=== PATIENT | female | born 1955 | race Caucasian/White ===

== ENCOUNTER → 2021-01-18 10:45 | Outpatient (BNVA) | payer MEDICARE, BC, SELFPAY | PROVIDERS: Visit Provider Internal Medicine | DX: Z01.810 Encounter for preprocedural cardiovascular examination (principal); I10 Essential (primary) hypertension; I42.8 Other cardiomyopathies; Z95.810 Presence of automatic (implantable) cardiac defibrillator | CPT/HCPCS: 93005; 99212 ==

== ENCOUNTER → 2022-03-14 12:58 | Outpatient (REF) | payer MEDICARE, BC, SELFPAY ==
--- NOTE | 2022-03-14 13:01 | CA_ITS ---
Transthoracic Echocardiogram Patient (Last, First, Middle): Tiana Reddy, Gender: Female Date of : 1955 Age: 66 Procedure Date: 03/14/2022 Procedure Type: Transthoracic Echocardiogram Location: OP Height: 160.02 cm Weight: 63.5 kg BSA: 1.66 m2 Heart Rate: bpm BP: 160 / 88 mmHg Surgical Nurse Practitioner: SARY Referring MD: Elliot Cruz MD Symptoms: I42.8 - Other cardiomyopathies Study Quality: Fair/contrast ECG Rhythm: Sinus Conclusions: - The left ventricular systolic function is mildly decreased. The calculated ejection fraction is 49% by biplane method. - There is mild aortic valve regurgitation. - There is mild mitral valve regurgitation. Findings Procedure Information Contrast agent, definity, is being given per protocol without apparent complications. Left Ventricle Normal left ventricular cavity size. There is normal left ventricular wall thickness. The left ventricular systolic function is mildly decreased. The calculated ejection fraction is 49% by biplane method. There is mild global hypokinesis. Diastolic function is normal for age. Right Ventricle Mildly increased right ventricular cavity size. There is normal right ventricular systolic function. There is an ICD wire seen in the right ventricle. Atria Both atria are normal in size. Aortic Valve There is a normal trileaflet aortic valve. There is mild calcification of the aortic valve. There is no aortic valve stenosis. There is mild aortic valve regurgitation. Mitral Valve There is mild mitral annular calcification. There is mild mitral valve regurgitation. There is no mitral valve stenosis. Pulmonic Valve The pulmonic valve is likely normal. Tricuspid Valve There is mild tricuspid valve regurgitation. There is no evidence of pulmonary hypertension. Great Vessels The aortic annulus, sinuses of valsalva, and asc aorta are normal in size. Venous The inferior vena cava is normal in size and collapses greater than 50% with inspiration. Pericardium/Pleural There is no evidence of pericardial effusion. Prior Study Comparison No significant change compared to prior study dated: 05/14/2019. Measurements 2D Linear Measurements IVSd: 0.80 0.6-0.9/0.6-1.0 cm LVIDd: 5.16 3.9-5.3/4.2-5.9 cm LVIDd Index: 3.11 2.4-3.2/2.2-3.1 cm/m2 LVIDs: 4.00 2.0-3.6 cm LVPWd: 0.75 0.7-1.1 cm LA Diam: 2.80 2.7-3.8/3.0-4.0 cm LAIDs Index: 1.69 1.5-2.3 cm/m2 LV Mass: 171.31 67-162/88-224 g LV Mass Index: 103.20 43-95/49-115 g/m2 LVOT Diam: 2.10 3.0+(-)1.3 cm 2D Systolic Function EF 4C: 46.20 >55% EF 2C: 53.70 >55% EF BiP: 49.30 >55% Mitral Valve MV Pk E: 0.52 MV PK A: 0.78 MV Decel Time: 187.00 E/A: 0.70 E'Lateral: 8.59 E'Medial: 7.40 E/E' Med: 7.10 E/E' Lat: 6.10 PHT: 55.00 MVA PHT: 4.00 Decel [place]: 2.80 Aortic Valve AoV Pk Augustus: 1.08 AoV Mn Augustus: 0.76 AoV VTI: 0.24 AoV Pk Grad: 5.00 Aov Mn Grad: 3.00 CHRIS Cont.VTI: 2.71 AI Pk Augustus: 4.81 AI [place]: 3.77 LVOT LVOT Pk Augustus: 0.76 LVOT Mn Augustus: 0.50 LVOT VTI: 0.19 LVOT Pk Grad: 2.00 LVOT Mn Grad: 1.00 LVOT Diam: 2.10 LVOT Area: 3.46 Diastolic Function MV Pk E: 0.52 MV Pk A: 0.78 E/A: 0.70 E'Medial: 7.40 E/E' Med: 7.10 E' Laterial: 8.59 E/E' Lat: 6.10 Right Ventricle TAPSE (mm): 2.43 TVS' Augustus: 12.10 Tricuspid Valve TR Pk Augustus: 2.77 TR Pk Grad: 31.00 RA Press: 3.00 RVSP: 34.00 Great Vessels Aorta Sinus of Valsalva: 3.42 2.0-3.[address] Ridge: 2.66 1.7-3.4 cm Ao Asc: 3.20 2.1-3.4 cm Updated in Other Vendor System with Status of Final Elliot Cruz MD electronically signed on 03/14/2022 3:41:47 PM with status of Final
== END ==
LOC: HO.CARD 12:58
PROVIDERS: Visit Provider Internal Medicine
DX: I42.8 Other cardiomyopathies (principal)
CPT/HCPCS: 93306; Q9957

== ENCOUNTER → 2022-03-27 13:58 | Outpatient (BNVA) | payer MEDICARE, BC, SELFPAY | PROVIDERS: Visit Provider Internal Medicine | DX: Z45.02 Encounter for adjustment and management of automatic implantable cardiac defibrillator (principal); I42.8 Other cardiomyopathies; I10 Essential (primary) hypertension | CPT/HCPCS: 93005; 99212 ==

== ENCOUNTER 2023-03-19 09:50 | Inpatient (IN) | payer MEDICARE, BC, SELFPAY ==
[2023-03-19] VITALS (7 sets, daily range): BP systolic 125–175; BP diastolic 79–94; PULSE 78–110; RESP 16–24; TEMP 36.5–36.9; O2SAT 91–97; BMI 23.0; BMI 19.0
--- NOTE | ~2023-03-19 | XR_ITS ---
EXAMINATION: LUMBAR SPINE AND SACRUM WITH COCCYX CLINICAL INFORMATION: Fall with pain COMPARISON: CT abdomen pelvis 02/07/2019 TECHNIQUE: 3 views of the lumbar spine, 3 views of the sacrum and coccyx. FINDINGS: There is a new compression fracture involving the L1 vertebral body compared with the prior 02/07/2019 study. Degenerative changes are again noted throughout the remainder of the lumbosacral spine. Marked vascular calcifications are seen. There is minimal grade 1 anterolisthesis of L5, slightly increased from 2019. The sacrum and coccyx are not optimally seen secondary to marked overlying bowel gas. No definite fracture or bony destructive lesion is seen. The visualized pelvis is unremarkable. XR/XR lumbar spine 2-3V IMPRESSION: 1. New compression fracture of L1. MRI could be useful to assess for edema if an acute fracture is suspected. 2. Grade 1 anterolisthesis of L5. 3. Degenerative changes throughout the lumbosacral spine.
--- NOTE | ~2023-03-19 | XR_ITS ---
EXAMINATION: XR CHEST CLINICAL INFORMATION: Weakness. COMPARISON: 01/21/2019 TECHNIQUE: 2 views of the chest were obtained. FINDINGS: Low lung volumes. Biapical pleural thickening. Diffuse subpleural reticular changes slightly progressed from the prior study. No confluent airspace disease to suggest developing pneumonia. Left chest wall single-lead pacing device is in stable position. Cardiac silhouette is unchanged. XR/XR chest 2V IMPRESSION: Stable appearance of interstitial lung disease. No acute abnormality.
--- NOTE | ~2023-03-19 | CT_ITS ---
EXAMINATION: CT CHEST WITHOUT CONTRAST CLINICAL INFORMATION: Weight loss. Smoking history. COMPARISON: Previous chest x-ray 03/19/2023 TECHNIQUE: Multidetector volumetric CT imaging of the chest was done. Axial MIP volume rendering provided. Sagittal and coronal reformatted images were obtained. This CT examination was performed using dose optimization techniques as appropriate, variously including the following: *Automated exposure control *Adjustment of mA and/or kV according to patient size (this includes techniques or standardized protocols for targeted exams where dose is matched to indication/reason for exam; i.e. extremities or head) *Use of iterative reconstruction technique DLP: 111 mGy-cm FINDINGS: LUNGS: There are increased peripheral reticular markings and parenchymal attenuation. This is seen diffusely throughout the lungs. There is mild traction bronchiolectasis seen in both lower lobes. There is mild honeycombing. There may be mild paraseptal emphysema. No endobronchial or endotracheal lesion. MEDIASTINUM: There is mediastinal lymphadenopathy. Larger lymph nodes are upper normal in size. Largest lymph node is a right precarinal lymph node measuring 9 mm in short axis. The heart is enlarged. No pericardial effusion. Left subclavian pacemaker AICD device projects over the ventricular apex. CORONARY ARTERY CALCIFICATION: Mild PLEURA: No pleural effusion. There is prominent extrapleural fat. AXILLA: No lymphadenopathy. UPPER ABDOMEN: Gallstones OSSEOUS STRUCTURES: Severe L1 vertebral body compression fracture. Degenerative changes of the spine. CT/CT chest wo IV con IMPRESSION: Severe interstitial lung disease with honeycombing. Enlarged heart. Severe L1 vertebral body compression fracture. Gallstones. Fleischner guidelines were followed.
--- NOTE | ~2023-03-19 | CT_ITS ---
EXAMINATION: CT HEAD WITHOUT CONTRAST CLINICAL INFORMATION: Weakness. COMPARISON: 01/20/2019 TECHNIQUE: Contiguous axial imaging was performed from the skull base to vertex without intravenous administration of contrast. This CT examination was performed using dose optimization techniques as appropriate, variously including the following: *Automated exposure control *Adjustment of mA and/or kV according to patient size (this includes techniques or standardized protocols for targeted exams where dose is matched to indication/reason for exam; i.e. extremities or head) *Use of iterative reconstruction technique DLP: 587 mGy-cm FINDINGS: Stable postoperative changes related to right parietotemporal craniotomy for right middle cerebral artery aneurysm clipping. There is encephalomalacia and gliosis within the right temporal lobe and inferior subinsular region. There is no intracranial hemorrhage or large evolving territorial infarction. Subcortical and periventricular matter hypoattenuation most likely represents chronic small vessel ischemic disease. The ventricles are unchanged in size. No mass effect or midline shift. Opacification of the left frontal sinus. Small air-fluid level in the right sphenoid sinus. Severe degenerative changes involving the left TMJ. CT/CT head/brain wo IV con IMPRESSION: No acute intracranial pathology. Left frontal sinus opacification. Small air-fluid level in the right sphenoid sinus.
--- NOTE | ~2023-03-19 | CT_ITS ---
EXAMINATION: CT ABDOMEN AND PELVIS WITH CONTRAST CLINICAL INFORMATION: Weight loss. Elevated CA-19-9 COMPARISON: Previous CT of the abdomen and pelvis most recent February 2019 TECHNIQUE: Multidetector volumetric images were obtained from the superior aspect of the liver through the pubic symphysis following administration 85 mL of Omnipaque 350 intravenous contrast. Sagittal and coronal reformatted images were obtained on the technologist's workstation. Oral contrast: Yes This CT examination was performed using dose optimization techniques as appropriate, variously including the following: *Automated exposure control *Adjustment of mA and/or kV according to patient size (this includes techniques or standardized protocols for targeted exams where dose is matched to indication/reason for exam; i.e. extremities or head) *Use of iterative reconstruction technique DLP: 356 mGy-cm FINDINGS: LUNG BASES: Interstitial lung disease at the lung bases. Enlarged heart. LIVER, GALLBLADDER, AND BILIARY TREE: The liver is low in attenuation suggestive of mild fatty infiltration. There is a 1 cm low-attenuation lesion in the right lobe of the liver suggestive of a cyst. No other focal liver lesion. Small gallstone. The gallbladder is otherwise normal. There is no biliary duct dilatation. Trace ascites adjacent to the liver. PANCREAS: There is a 5 mm low-attenuation lesion in the tail of the pancreas axial image 146 series 4. This may represent a cyst. Pancreas is otherwise normal. SPLEEN: Unremarkable. ADRENAL GLANDS: Unremarkable. KIDNEYS AND URETERS: The kidneys are normal in size, shape, and attenuation. No hydronephrosis, hydroureter, or calculi seen. No perinephric stranding. Small bilateral renal cysts. No imaging follow-up recommended. BLADDER: Bladder is well-distended. GASTROINTESTINAL TRACT: Severe constipation. The colon is dilated suggestive of obstipation. There is a large amount of stool in the rectosigmoid region suggestive of fecal impaction. There is wall thickening of the rectosigmoid and stranding of the surrounding fat questionable for mild stercoral colitis related to chronic obstruction. Small and large bowel is otherwise normal. The appendix is normal. The stomach is normal. ABDOMINAL WALL: No significant hernia is appreciated. LYMPH NODES: Normal. VASCULAR: Atherosclerotic disease. No aneurysm. PELVIC VISCERA: Unremarkable. OSSEOUS STRUCTURES: Severe L1 vertebral body compression fracture. This does not appear acute but is new in the interval from 2019 CT. Mild 2 mm anterior subluxation of L5 with respect to L4 and S1 that is stable probably related to facet arthritis. Degenerative changes of the spine. Degenerative changes of the hip joints. CT/CT abdomen pelvis w IV con IMPRESSION: 5 mm low-attenuation lesion in the tail the pancreas. This may represent a cyst. Follow-up MR with MRCP recommended. Mild fatty infiltration of the liver. Probable small liver cyst. Small gallstones. Severe constipation/obstipation and fecal impaction. Wall thickening of the rectosigmoid questionable for mild stercoral colitis related to chronic constipation. Severe L1 vertebral body compression fracture. This does not appear acute but is new in the interval from 2019 CT. Fleischner guidelines were followed.
--- NOTE | ~2023-03-19 | XR_ITS ---
EXAMINATION: LUMBAR SPINE AND SACRUM WITH COCCYX CLINICAL INFORMATION: Fall with pain COMPARISON: CT abdomen pelvis 02/07/2019 TECHNIQUE: 3 views of the lumbar spine, 3 views of the sacrum and coccyx. FINDINGS: There is a new compression fracture involving the L1 vertebral body compared with the prior 02/07/2019 study. Degenerative changes are again noted throughout the remainder of the lumbosacral spine. Marked vascular calcifications are seen. There is minimal grade 1 anterolisthesis of L5, slightly increased from 2019. The sacrum and coccyx are not optimally seen secondary to marked overlying bowel gas. No definite fracture or bony destructive lesion is seen. The visualized pelvis is unremarkable. XR/XR sacrum coccyx min 2V IMPRESSION: 1. New compression fracture of L1. MRI could be useful to assess for edema if an acute fracture is suspected. 2. Grade 1 anterolisthesis of L5. 3. Degenerative changes throughout the lumbosacral spine.
--- NOTE | 2023-03-19 10:04 | ECG_ITS ---
Test Reason : WEAKNESS Blood Pressure : / mmHG Vent. Rate : 082 BPM Atrial Rate : 082 BPM P-R Int : 188 ms QRS Dur : 098 ms QT Int : 384 ms P-R-T Axes : 050 -30 111 degrees QTc Int : 448 ms Normal sinus rhythm Possible Left atrial enlargement Left axis deviation Minimal voltage criteria for LVH, may be normal variant ( Enoch product ) Nonspecific ST and T wave abnormality Abnormal ECG When compared with ECG of 07-FEB-2019 16:24, Premature ventricular complexes are no longer Present Vent. rate has decreased BY 40 BPM Criteria for Inferior infarct are no longer Present T wave inversion no longer evident in Anterolateral leads Referred By: Maximino Acevedo Electronically Signed By:YOLIE BOWERS
--- NOTE | 2023-03-19 10:05 | ED_ITS ---
HPI - Weakness General Chief complaint: Weakness Stated complaint: GEN WEAKNESS,FALL T-1 PER EMS Time Seen by Provider: 03/19/23 09:59 Source: patient and EMS Mode of arrival: EMS Limitations: no limitations History of Present Illness HPI Narrative: 59-year-old female history of ICD weakness seemed cardiopathy hypertension presents to the emergency department with weakness. Patient states the past several months her leg swelling gradually weaker. She states that yesterday she tried to get up and fell onto her buttocks. She woke up this morning was still unable to get out of bed. Patient denies any head injury she has headache she denies chest pain does have some shortness of breath she denies any abdominal pain but feels like she might have UTI she did have a fall yesterday did not lose consciousness does not have any pain to any complaint is her leg weakness she lives at home with her son she does not ambulate with a walker. MD Complaint: generalized weakness Related Data Home Medications Medication Instructions Recorded Confirmed folic acid 1 mg tablet 1 mg PO DAILY 01/18/21 03/27/22 Previous Rx's Medication Instructions Recorded furosemide 20 mg tablet 20 mg PO DAILY #90 tabs 03/27/22 isosorbide mononitrate 30 mg 30 mg PO DAILY #90 tabs 04/28/22 tablet,extended release 24 hr carvedilol 25 mg tablet 25 mg PO BID #90 tabs 09/14/22 hydralazine 25 mg tablet 25 mg PO TID #270 tabs 01/24/23 Allergies Allergy/AdvReac Type Severity Reaction Status Date / Time SAUL Inhibitors Allergy Severe ANAPHYLAXIS Verified 03/19/23 10:07 [SAUL INHIBITORS] amoxicillin [AMOXICILLIN] Allergy Unknown DIARRHEA Verified 03/19/23 10:07 hydrochlorothiazide Allergy Unknown UNKNOWN Verified 03/19/23 10:07 [HYDROCHLOROTHIAZIDE] Penicillins [PENICILLINS] Allergy Unknown UNKNOWN Verified 03/19/23 10:07 lisinopril Allergy Difficulty Verified 03/19/23 10:08 Swallowing Review of Systems 2 Review of Systems: Review of systems: General: Patient denies any fever chills recent illness or falls Musculoskeletal: Denies back pain or body aches or other injuries HEENT: denies headache, runny nose, ear pain Respiratory: denies shortness of breath, cough Cardiovascular: no chest pain or palpitations : denies dysuria, frequency Abdomen: no nausea vomiting denies abdominal pain Extremities: no swelling, no pain Skin: no diaphoresis Yes all other systems are reviewed and are negative PMFSH Past Medical History Medical History (Updated 03/19/23 @ 14:24 by Maximino Acevedo DO) ICD (implantable cardioverter-defibrillator) in place Gout Cerebral aneurysm Essential hypertension NICM (nonischemic cardiomyopathy) Surgical History (Updated 01/18/21 @ 11:11 by LAURA Barry) History of implantable cardioverter-defibrillator (ICD) placement (~10/12/14) History of cardiac catheterization (~2013) Family History Family History (Updated 01/18/21 @ 11:13 by LAURA Barry) Father CAD (coronary artery disease) HTN (hypertension) Cardiomyopathy Mother Suicide Social History Social History (Updated 01/18/21 @ 11:00 by LAURA Barry) Alcohol intake: current Alcohol intake frequency: holidays/special occasions only Patient Tobacco Use Status: Never used Tobacco Smoked in Last 30 Days: No Use of substances other than those prescribed or required for medical reasons: No Advance Directives: Yes Advance Directives on File: Yes Advance Directives Date on File: 03/19/23 Physical Exam 2 Vital Signs: Vital Signs: Last Vital Signs Temp 98.5 F 03/19/23 11:51 Pulse 78 03/19/23 11:51 Resp 18 03/19/23 11:51 BP 168/83 H 03/19/23 11:51 Pulse Ox 95 03/19/23 11:51 O2 Del Method Room Air 03/19/23 11:51 BMI result Body Mass Index 23.0 Neurological exam: CN II- XII tested. Patient is alert and oriented to person place and time. Patient has no dysphagia or dysarthia, denies good vision in all four vision gage no nystagmus on exam, good strength to upper and lower extremities with normal reflexes to brachioradialis, wrist, patella and achilles.? Negative romberg, good finger to nose and heel to fonseca.?? General: Well-appearing well-nourished in no signs of distress HEENT: Normocephalic atraumatic Neck: No signs of JVD, no masses no tenderness or lymphadenopathy Cardiovascular: Regular rate and rhythm Respiratory: Clear to auscultation bilaterally Abdomen: Soft nontender no masses Extremities: Normal pedal pulses no signs of edema Skin: Dry warm no rashes Back: No tenderness full ROM Course Course Course Narrative: Labs show hyponatremia which is new patient admits to drink lots of water. Did send a serum osmolarity as well as urine and urine sodium. 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 I spoke to the family they are requesting morphine stating that she has had no relief with ibuprofen and Tylenol for her bed sores. I tried to explain that the safety profile morphine is the 1 that we would start the medication she has not taken anything for pain I will start with some Toradol and Tylenol at this time. found to have a UTi rocephin orderd I will continue with admission. Medications Administered Discontinued Medications Generic Name Dose Route Start Last Admin Trade Name Ana Paula PRN Reason Stop Dose Admin Acetaminophen 650 mg 03/19/23 13:32 03/19/23 14:03 Acetaminophen 325 Mg Tablet PO 03/19/23 13:33 650 mg ONCE ONE Administration Sodium Chloride 1,000 mls @ 999 mls/hr 03/19/23 10:15 03/19/23 10:57 Ns IV 03/19/23 11:15 999 mls/hr .Q1H1M MARTITA Administration Ketorolac Tromethamine 15 mg 03/19/23 13:32 03/19/23 14:02 Ketorolac Tromethamine 15 Mg/Ml Vial IVPUSH 03/19/23 13:33 15 mg ONCE ONE Administration Medical Decision Making Medical Decision Making [facility] Narrative: Patient is here for weakness but she has no signs of stroke she has no identifiable wheezing CN exam normal reflexes this could be related to having to check labs have the patient evaluate by her outsole caser as well as physical therapy. Differential Diagnosis Differential Diagnoses: The differential diagnosis associated with the presentation includes Less likely a stroke but this is likely related to having a UTI she has weakness sepsis dehydration electrolyte abnormality failure to thrive Lab Data [facility] Lab Attestation statement: I reviewed the patient's lab results. 03/19/23 10:38 03/19/23 10:38 Labs: Lab Results 03/19/23 03/19/23 03/19/23 Range/Units 10:38 11:49 13:53 WBC 4.6 L (4.8-10.8) X10*3/uL RBC 3.76 L (4.20-5.50) X10*6/uL Hgb 11.5 L (12.0-16.0) g/dl Hct 33.5 L (37.0-47.0) % MCV 89.1 (80.0-98.0) fL MCH 30.6 (27.0-33.0) pg MCHC 34.3 (31.0-35.0) g/dl RDW 14.6 (11.0-16.0) % Plt Count 169 (160-400) X10*3/uL MPV 9.6 (9.4-12.3) fL Immature Gran % (Auto) 0.2 (0.0-0.4) % Neut % (Auto) 74.2 H (45-73) % Lymph % (Auto) 9.7 L (20-40) % Nolan % (Auto) 13.8 H (2-11) % Eos % (Auto) 1.7 (0-4) % Baso % (Auto) 0.4 (0-2) % Lymph # (Auto) 0.5 L (1.2-4.9) X10*3/uL Nolan # (Auto) 0.6 (0.1-1.2) X10*3/uL Eos # (Auto) 0.1 (0.0-0.4) X10*3/uL Baso # (Auto) 0.0 (0.0-0.2) X10*3/uL Abs Immat Gran (auto) 0.01 (0.00-0.03) X10*3/uL Absolute Neuts (auto) 3.4 (2.0-8.3) x10*3/uL Absolute Nucleated RBC 0.000 (0.0-0.012) X10*3/uL Nucleated RBC % (auto) 0.0 (0.0-0.2) /100WBC Sodium 124 L (135-145) mmol/L Potassium 3.3 (3.3-5.1) mmol/L Chloride 95 L (96-108) mmol/L Carbon Dioxide 21 L (22-29) mmol/L Anion Gap 11 L (12-20) BUN 12 (9-16) mg/dL Creatinine 0.68 (0.5-1.4) mg/dL Estim Creat Clear Calc 65.5 Estimated GFR > 60 Random Glucose 99 (60-115) mg/dL Osmolality 257 L (281-305) mosm/kg Lactic Acid 1.5 (0.5-2.0) mmol/L Calcium 8.7 (8.4-10.2) mg/dL Total Bilirubin 0.3 (0.0-1.0) mg/dL Direct Bilirubin 0.1 (0.0-0.5) mg/dL AST 17 (5-31) U/L ALT 8 (0-31) U/L Alkaline Phosphatase 81 (39-117) U/L Total Protein 6.0 L (6.5-8.0) g/dL Albumin 3.2 L (3.5-5.0) g/dL Lipase 18 (8-78) U/L Urine Color Dark Yellow Urine Appearance Turbid Urine pH 5.5 (5.0-9.0) Ur Specific Rugby 1.010 (1.005-1.025) Urine Protein Trace (Neg-Trace) mg/dL Urine Glucose (UA) Negative (Negative) mg/dL Urine Ketones Negative (Negative) mg/dL Urine Blood Moderate (2+) H (Negative) Urine Nitrite Positive H (Negative) Ur Leukocyte Esterase Large (3+) H (Negative) Urine RBC 11-20 H (0-2) /HPF Urine WBC >50 H (0-5) /HPF Ur Squamous Epith Cells 3-5 (0-2) /HPF Urine Bacteria 4+ (None Seen) Hyaline Casts 0-2 (0-2) /LPF Ur Random Sodium < 20.0 mmol/L COVID-19 (MIKEY) Negative (Negative) COVID-19 Clin Com See Note Hyponatremia I will add on urine and serum osmolarity and urine sodium. Independent Interpretation I performed an independent interpretation of an: EKG and Plain X-Ray Interpretation: Rate 82 normal sinus rhythm normal intervals no signs of ischemia no previous for comparison there is a lot artifact interpreted by me External Record Review External record reviewed: Office record Last seen by Cardiology about a year ago Discharge Plan Discharge Clinical Impression: Acute hyponatremia, Weakness, Acute dehydration, Psychogenic polydipsia, Urinary tract infection Patient Disposition: Admitted As Inpatient Prescriptions: No Action isosorbide mononitrate 30 mg tablet extended release 24 hr 30 mg PO DAILY Qty: 90 3RF carvedilol 25 mg tablet 25 mg PO BID Qty: 90 3RF hydralazine 25 mg tablet 25 mg PO TID Qty: 270 3RF folic acid 1 mg tablet 1 mg PO DAILY furosemide 20 mg tablet 20 mg PO DAILY Qty: 90 3RF
--- NOTE | 2023-03-19 10:20 | PC.NURSE ---
pt a&ox3, vss, nsr on the school bus monitor. pt biba d/t increased generalized weakness over the past few weeks. pt also verbalizes poor PO intake and SOB. pt able to speak in full, clear sentences w/o difficulty. pt had a fall yesterday after standing - her legs gave out and she fell on her coccyx. pt denies headstrike, LOC, and per ems, she is not on blood thinners. tech performing ekg. pt resting comfortably in no apparent distress.
[2023-03-19 10:48] LABS: MANUAL DIFF FLAG NO
[2023-03-19] MEDS: 0.9 % Sodium Chloride 1,000 ML 999 ML IV (10:57)
[2023-03-19 10:58] LABS: Basophils Percent Auto 0.4 % (0-2); Eosinophils Absolute Auto 0.1 X10*3/uL (0.0-0.4); Eosinophils Percent Auto 1.7 % (0-4); Hematocrit 33.5 % (37.0-47.0); Hemoglobin 11.5 g/dl (12.0-16.0); Imm Gran Abs Auto 0.01 X10*3/uL (0.00-0.03); Imm Gran Pct Auto 0.2 % (0.0-0.4); Lymphocytes Absolute Auto 0.5 X10*3/uL (1.2-4.9); Lymphocytes Percent Auto 9.7 % (20-40); Mean Corpuscular HGB Conc 34.3 g/dl (31.0-35.0); Mean Corpuscular Hemoglobin 30.6 pg (27.0-33.0); Mean Corpuscular Volume 89.1 fL (80.0-98.0); Mean Platelet Volume 9.6 fL (9.4-12.3); Monocytes Absolute Auto 0.6 X10*3/uL (0.1-1.2); Monocytes Percent Auto 13.8 % (2-11); Neutrophils Absolute Auto 3.4 x10*3/uL (2.0-8.3); Neutrophils Percent Auto 74.2 % (45-73); Platelet Count 169 X10*3/uL (160-400); Red Blood Count 3.76 X10*6/uL (4.20-5.50); Red Cell Distribution Width 14.6 % (11.0-16.0); White Blood Count 4.6 X10*3/uL (4.8-10.8)
[2023-03-19 11:00] LABS: Lactic Acid 1.5 mmol/L (0.5-2.0)
[2023-03-19 11:04] LABS: Alanine Aminotransferase 8 U/L (0-31); Albumin Level 3.2 g/dL (3.5-5.0); Alkaline Phosphatase 81 U/L (39-117); Anion Gap 11 (12-20); Aspartate Amino Transferase 17 U/L (5-31); Bilirubin Direct 0.1 mg/dL (0.0-0.5); Bilirubin Total 0.3 mg/dL (0.0-1.0); Blood Urea Nitrogen 12 mg/dL (9-16); Calcium 8.7 mg/dL (8.4-10.2); Carbon Dioxide 21 mmol/L (22-29); Chloride 95 mmol/L (96-108); Creatinine Clr Calc Pharmacy 65.5; Estimated Glomerular Filt Rate > 60; Glucose Random 99 mg/dL (60-115); Lipase 18 U/L (8-78); Potassium 3.3 mmol/L (3.3-5.1); Sodium 124 mmol/L (135-145)
--- NOTE | 2023-03-19 11:06 | PC.NURSE ---
vss and up to date. nsr on the bus monitor. pt c/o SOB - crackles noted in lower bases upon auscultation. pt also c/o pain on coccyx - redness noted upon visualization. barrier cream applied to affected area. pt currently being transported to [place].
[2023-03-19 11:14] LABS: COVID-19 Test Negative (Negative); IDNOW Serial# 08D9AD1C
[2023-03-19 12:12] LABS: Osmolality, Serum 257 mosm/kg (281-305)
[2023-03-19] MEDS: Ketorolac Tromethamine 15 MG/ML VIAL IVPUSH (14:02)
[2023-03-19] MEDS: Acetaminophen 325 MG TABLET 650 MG PO (14:03)
[2023-03-19 14:04] LABS: Appearance Urine Turbid; Color Urine Dark Yellow; Glucose Urine UA Negative (Negative); Leukocyte Esterase Urine Large (3+) (Negative); Nitrite Urine Positive (Negative); PH 5.5 (5.0-9.0); UMIC TRIGGER UACC YES; Urine Blood Moderate (2+) (Negative); Urine Ketones Negative (Negative); Urine Protein Trace mg/dL (Neg-Trace)
[2023-03-19 14:07] LABS: Bacteria Urine 4+ (None Seen); Hyaline Casts Urine 0-2 /LPF (0-2); UACC Culture Trigger YES; WBC Urine >50 /HPF (0-5)
[2023-03-19 14:09] LABS: Sodium Urine Random < 20.0 mmol/L
[2023-03-19 14:29] LABS: Osmolality Urine 192 mosm/kg (373-1093)
[2023-03-19] MEDS: cefTRIAXone sodium 1 GM in 0.9 % Sodium Chloride 50 ML IV (14:42)
--- NOTE | 2023-03-19 15:02 | PHA.MEDREC ---
Pharmacy Consult ? Medication Reconciliation Pharmacy has completed the medication reconciliation. Family had rx bottles. Patient also reported she takes folic acid and confirmed that lasix was stopped. [place], PharmD
[2023-03-19] MEDS: Enoxaparin Sodium 40 MG/0.4 ML SYRINGE SUBCUT (17:14)
--- NOTE | 2023-03-19 17:20 | P.HPHOSP_ITS ---
<Statement entered by Sherita Sanders MD - 03/24/23 14:44> The patient was seen and evaluated with CITLALLI Landrum. I agree with her note, assessment and plan with the following. 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 IV ceftriaxone 1 g , follow cultures Rest of evaluations by PA note. History of Present Illness Date of Service: 03/19/23 Attending physician on admission: Sherita Sanders Chief Complaint: weakness, urinary symptoms, weight loss 67-year-old female with history of nonischemic cardiomyopathy s/p ICD placement, history of cerebral aneurysm s/p clipping coiling, gout, hypertension, former smoker with 40 pack year history, and Crohn's disease presented to the hospital earlier today with her son with whom she lives for evaluation of generalized weakness ongoing for about 1 month. She states the weakness has been progressive and she has been unable to get out of bed without significant difficulty and requires furniture surfing while ambulating which is not her baseline. Yesterday she did have a fall onto her buttock and denies any head strike or loss of consciousness. Since then has had 10/10 pain in the sacrum/coccyx region. She tells me that over the last week, she has also developed urge incontinence, dysuria, and suprapubic pressure. She tells me that because she has been unable to get out of bed much, has developed pressure ulcer on the sacrum. She also tells me that since the beginning of the year, has had a 30 lb unintentional weight loss. She states she has little appetite but has been drinking a lot of fluids. Drinks about 8, 16 oz bottles of water on a daily basis. She denies any fevers, chills, sore throat, headache, abdominal pain, nausea, vomiting, cough, shortness of breath, chest pain, lightheadedness. She does report occasional diarrhea related to her Crohn's disease but this is rare. Denies any bright red blood per rectum or melena. Patient is alert and oriented x4 but does appear somewhat confused when telling story or giving history with small details. Her son reports this is not her baseline. He does report that she has been endorsing depression anxiety. Upon questioning further on this, the patient does report anxiety about her health and has been depressed since COVID stating she is typically a happy person. She has not been following with any primary care provider. She reports she is up to date with routine cancer screenings. In the ED, vital stable. No leukocytosis. Mild normocytic anemia with H/H 11.5/33.5%. Renal function normal. Sodium 124, Cl 95, lytes otherwise normal. Serum osm 257, urine osm 192. UA with 3+ luekocytes, positive nitrites, 2+ blooid, positive urinary sediment, 4+ bacteria. Negative for COVID-19. Head CT negative for acute intracranial abnormality, but does show left frontal sinus opacification and small air-fluid level in the right sphenoid sinus. CXR negative for any acute cardiopulmonary abnormality but does show interstitial lung disease. Review of Systems 2 Review of Systems: General: No fevers. +general weakness, malaise, unintentional weight loss HEENT: No blurred vision, diplopia. No sore throat, nasal congestion, rhinorrhea, sinus pain, ear pain Cardiovascular: No chest pain, palpitations, or leg edema Respiratory: No shortness of breath, wheezing, cough GI: No abdominal pain, nausea, vomiting, diarrhea, constipation, melena, hematochezia : +dysuria, +urgency, +incontinence. No hematuria, increased urinary frequency, decreased urinary output MSK: No myalgia. +back pain Neuro: No headaches, focal weakness, paresthesias Skin: No rashes or lesions [facility] Medical History ICD (implantable cardioverter-defibrillator) in place Gout Cerebral aneurysm Essential hypertension NICM (nonischemic cardiomyopathy) Family History Father CAD (coronary artery disease) HTN (hypertension) Cardiomyopathy Mother Suicide Surgical History History of implantable cardioverter-defibrillator (ICD) placement (~10/12/14) History of cardiac catheterization (~2013) Social History Alcohol intake: current Alcohol intake frequency: holidays/special occasions only Patient Tobacco Use Status: Never used Tobacco Smoked in Last 30 Days: No Use of substances other than those prescribed or required for medical reasons: No Advance Directives: Yes Advance Directives on File: Yes Advance Directives Date on File: 03/19/23 Nutrition Risks: No Nutritional Risk Meds Allergies Allergy/AdvReac Type Severity Reaction Status Date / Time SAUL Inhibitors Allergy Severe ANAPHYLAXIS Verified 03/19/23 10:07 [SAUL INHIBITORS] amoxicillin [AMOXICILLIN] Allergy Unknown DIARRHEA Verified 03/19/23 10:07 hydrochlorothiazide Allergy Unknown UNKNOWN Verified 03/19/23 10:07 [HYDROCHLOROTHIAZIDE] Penicillins [PENICILLINS] Allergy Unknown UNKNOWN Verified 03/19/23 10:07 lisinopril Allergy Difficulty Verified 03/19/23 10:08 Swallowing Active Medications: Current Medications Acetaminophen (Acetaminophen 325 Mg Tablet) 650 mg PO Q6H PRN PRN Reason: Pain, Mild (Pain Scale 1-3) Carvedilol (Carvedilol 25 Mg Tablet) 25 mg PO BID [facility]; Protocol Docusate Sodium (Docusate Sodium 100 Mg Capsule) 100 mg PO DAILY PRN PRN Reason: Constipation Enoxaparin Sodium (Enoxaparin Sodium 40 Mg/0.4 Ml Syringe) 40 mg SUBCUT Q24H [facility] Last Admin: 03/19/23 17:14 Dose: 40 mg Folic Acid (Folic Acid 1 Mg Tablet) 1 mg PO DAILY [facility] Hydralazine HCl (Hydralazine Hcl 25 Mg Tablet) 25 mg PO TID [facility]; Protocol Isosorbide Mononitrate (Isosorbide Mononitrate 30 Mg Tab.Er.24h) 30 mg PO DAILY [facility]; Protocol Ondansetron HCl (Ondansetron Hcl 4 Mg/2 Ml Vial) 4 mg IVPUSH Q8H PRN PRN Reason: Nausea and Vomiting Sodium Chloride (0.9 % Sodium Chloride Flush 3 Ml Syringe) 3 ml IVFLUSH QSHIFT [facility] Home Medications Medication Instructions Recorded Confirmed Last Taken Type folic acid 1 mg tablet 1 mg PO DAILY 01/18/21 03/19/23 03/18/23 History Physical Exam 2 Vital Signs and Narrative: Vital Signs: Last Vital Signs Temp 98.5 F 03/19/23 11:51 Pulse 80 03/19/23 17:12 Resp 24 H 03/19/23 17:12 BP 165/84 H 03/19/23 17:12 Pulse Ox 96 03/19/23 17:12 O2 Del Method Room Air 03/19/23 17:12 BMI result Body Mass Index 23.0 Constitutional - Awake and Alert, No apparent distress Eyes - PERRLA, EOMI Cardiovascular - S1S2, RRR, No edema Respiratory - Normal lung expansion, Normal respiratory effort, No respiratory distress, CTA bilaterally Gastrointestinal - NT / ND; +BS; No rebound or guarding Extremities - no calf tenderness bilaterally, no swelling Skin - Warm/Dry. Stage 1 decubitus ulcer bilateral buttock. Stage 2 decubitus ulcer of sacrum without drainage or surrounding erythema Neurological - Alert & oriented x3 but somewhat confused at times with story telling or giving history, CN II-XII in tact, 5/5 strength BUE and BLE Psychological - Appropriate affect Results Labs 03/19/23 10:38 03/19/23 Unknown Labs: Laboratory Results - last 24 hr 03/19/23 03/19/23 03/19/23 10:38 11:49 13:53 MCV 89.1 MCH 30.6 MCHC 34.3 RDW 14.6 Plt Count 169 MPV 9.6 Immature Gran % (Auto) 0.2 Neut % (Auto) 74.2 H Lymph % (Auto) 9.7 L [place] % (Auto) 13.8 H Eos % (Auto) 1.7 Baso % (Auto) 0.4 Lymph # (Auto) 0.5 L [place] # (Auto) 0.6 Eos # (Auto) 0.1 Baso # (Auto) 0.0 Abs Immat Gran (auto) 0.01 Absolute Neuts (auto) 3.4 Absolute Nucleated RBC 0.000 Nucleated RBC % (auto) 0.0 Anion Gap 11 L Estim Creat Clear Calc 65.5 Estimated GFR > 60 Random Glucose 99 Osmolality 257 L Lactic Acid 1.5 Calcium 8.7 Total Bilirubin 0.3 Direct Bilirubin 0.1 AST 17 ALT 8 Alkaline Phosphatase 81 Total Protein 6.0 L Albumin 3.2 L Lipase 18 Urine Color Dark Yellow Urine Appearance Turbid Urine pH 5.5 Ur Specific [place] 1.010 Urine Protein Trace Urine Glucose (UA) Negative Urine Ketones Negative Urine Blood Moderate (2+) H Urine Nitrite Positive H Ur Leukocyte Esterase Large (3+) H Urine RBC 11-20 H Urine WBC >50 H Ur Squamous Epith Cells 3-5 Urine Bacteria 4+ Hyaline Casts 0-2 Urine Osmolality 192 L Ur Random Sodium < 20.0 COVID-19 (MIKEY) Negative COVID-19 Clin Com See Note Imaging Radiologist's Impressions: Impressions Head CT 03/19/23 11:21 IMPRESSION: No acute intracranial pathology. Left frontal sinus opacification. Small air-fluid level in the right sphenoid sinus. Chest X-Ray 03/19/23 11:22 IMPRESSION: Stable appearance of interstitial lung disease. No acute abnormality. Assessment and Plan (1) Urinary tract infection: Status: Acute (2) Psychogenic polydipsia: Status: Acute (3) Acute hyponatremia: Status: Acute (4) Unintentional weight loss: Status: Acute Plan 67-year-old female with history of nonischemic cardiomyopathy s/p ICD placement, history of cerebral aneurysm s/p clipping coiling, gout, hypertension, former smoker with 40 pack year history, and Crohn's disease admitted for management of acute metabolic encephalopathy with UTI and hyponatremia. #Acute metabolic encephalopathy -likely r/t infection vs hyponatremia -Per her son, no cognitive impairment at baseline -Plan as below. -Monitor mentation #Acute hyponatremia -r/t psychogenic polydipsia- drinking 8, 16 oz bottles water daily -Ur osm 197, serum osm 257, Urine Na <20 -Given 1 L IV NS in ED -Fluid restrict to 1.2 L daily -check sodium q4h with goal of Na increase no more than 8mmol/l in 24 hr -nephrology consult #Acute UTI -UA with 3+ leukocytes, 2+ blood, positive nitrites, positive urinary sediment, 4+ bacteria -IV ceftriaxone 1 g (initiated 03/19) -follow CBC, cultures. No sepsis #Acute L1 compression fracture -fell onto buttock yesterday -MRI lumbar spine ordered -Initiate gabapentin 100mg TID, increase as tolerated -Morphine prn for severe pain -PT eval # generalized weakness w/ fall -etiology unclear, possibly related to infection -head CT negative for acute intracranial abnormality -PT eval # unintentional 30 lb weight loss -over 9 months -Has anorexia as well as polydipsia -Does endorse depression/anxiety which could be contributory, psychiatry consult placed -Last endoscopy/colonoscopy 2018 without significnat abnormality -Reports UTD with mammograms -Former smoker with 40 pack year history, quit 15 years ago. CXR negative except for interstitial lung disease -Hematology studies reassuring, renal function normal, A1c 4.5%, hepatic function normal, TSH normal. 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 Quality Stroke Does the patient have a stroke diagnosis?: No VTE Prior VTE?: No VTE Risk Level:: Medical - moderate - high VTE Device Contraindication: Treatment Not Indicated VTE Drug Contraindication: N/A - Med Ordered
[2023-03-19 17:31] LABS: Estimated Average Glucose 82 mg/dL; Hemoglobin A1c % 4.5 % (<6.0)
[2023-03-19 17:51] LABS: TSH reflex Free T4 2.34 uIU/mL (0.32-4.0)
--- NOTE | 2023-03-19 18:18 | PC.NURSE ---
nurse to nurse report given to floor RN
[2023-03-19 19:28] LABS: Lactate Dehydrogenase 183 U/L (122-220); Sodium 129 mmol/L (135-145)
[2023-03-19 19:43] LABS: HCG Quantitative 25 mIU/mL
[2023-03-19] MEDS: Morphine Sulfate 2 MG/ML CARTRIDGE IVPUSH (19:54)
[2023-03-19] MEDS: Gabapentin 100 MG CAPSULE PO (21:02)
[2023-03-19] MEDS: 0.9 % Sodium Chloride Flush 3 ML SYRINGE IVFLUSH (21:02)
[2023-03-19] MEDS: hydrALAZINE HCl 25 MG TABLET PO (21:02)
[2023-03-19] MEDS: carvediloL 25 MG TABLET PO (21:06)
--- NOTE | 2023-03-19 21:19 | PM.EVENT ---
Event Note Date of Service: 03/19/23 Event Note: Unfortunately, pt's son was unable to locate the ICD card to determine if the ICD is compatible with MRI. However he did send photo of the communicator. See below Time Spent With Patient Time: Total time managing care of this patient today ____ minutes.
[2023-03-19 21:51] LABS: Sodium 128 mmol/L (135-145)
--- NOTE | 2023-03-19 22:51 | PC.NURSE ---
pt had a coccyx pressure ulcer 1x1, and stephanie. leg bruise with right leg scratch skin tear.
[2023-03-20 02:22] LABS: Sodium 130 mmol/L (135-145)
[2023-03-20 03:18] VITALS: BP 147/72; PULSE 71; RESP 17; TEMP 36.4; O2SAT 94
[2023-03-20 04:14] LABS: ~HepC Num1 0.09 S/CO (0.00-0.79); ~Hepatitis C Antibody Nonreactive (Nonreactive)
[2023-03-20] MEDS: Morphine Sulfate 2 MG/ML CARTRIDGE IVPUSH ×4 (06:36→21:05)
[2023-03-20 06:56] LABS: Alanine Aminotransferase 7 U/L (0-31); Albumin Level 2.9 g/dL (3.5-5.0); Alkaline Phosphatase 70 U/L (39-117); Anion Gap 11 (12-20); Aspartate Amino Transferase 16 U/L (5-31); Bilirubin Total 0.2 mg/dL (0.0-1.0); Blood Urea Nitrogen 9 mg/dL (9-16); Calcium 8.2 mg/dL (8.4-10.2); Carbon Dioxide 20 mmol/L (22-29); Chloride 102 mmol/L (96-108); Creatinine Clr Calc Pharmacy 66.7; Estimated Glomerular Filt Rate > 60; Glucose Random 83 mg/dL (60-115); Potassium 3.3 mmol/L (3.3-5.1); Sodium 130 mmol/L (135-145); Total Protein 5.7 g/dL (6.5-8.0)
[2023-03-20 07:21] VITALS: PULSE 72; RESP 12; TEMP 36.2; O2SAT 95
[2023-03-20] MEDS: 0.9 % Sodium Chloride Flush 3 ML SYRINGE IVFLUSH ×3 (08:46→21:11)
[2023-03-20] MEDS: hydrALAZINE HCl 25 MG TABLET PO ×3 (08:47→21:05)
[2023-03-20] MEDS: Isosorbide Mononitrate 30 MG TAB.ER.24H PO (08:47)
[2023-03-20] MEDS: Gabapentin 100 MG CAPSULE PO ×3 (08:47→21:04)
[2023-03-20] MEDS: carvediloL 25 MG TABLET PO ×2 (08:47→21:04)
[2023-03-20] MEDS: Folic Acid 1 MG TABLET PO (08:48)
[2023-03-20 10:12] LABS: Sodium 133 mmol/L (135-145)
--- NOTE | 2023-03-20 10:35 | HO.PM.IMPN ---
Subjective Subjective Date of Service: 03/20/23 Interval History: back pain Physical Exam Vital Signs: Vital Signs: Last Vital Signs Temp 97.1 F 03/20/23 07:21 Pulse 72 03/20/23 07:21 Resp 12 03/20/23 07:21 BP 147/72 H 03/20/23 03:18 Pulse Ox 95 03/20/23 07:21 O2 Del Method Room Air 03/20/23 07:21 BMI result Body Mass Index 19.0 General: AO X 3, no acute distress Resp: CTA bilateral, no accessory muscles used CVS: S1,S2,RRR GI: soft, non tender, non distended Neuro: motor grossly intact, alert Psych: appropriate affect, appropriate insight Objective Data Active Medications Acetaminophen (Acetaminophen 325 Mg Tablet) 650 mg PO Q6H PRN PRN Reason: Pain, Mild (Pain Scale 1-3) Carvedilol (Carvedilol 25 Mg Tablet) 25 mg PO BID [facility]; Protocol Last Admin: 03/20/23 08:47 Dose: 25 mg Documented By: MICKEY Docusate Sodium (Docusate Sodium 100 Mg Capsule) 100 mg PO DAILY PRN PRN Reason: Constipation Enoxaparin Sodium (Enoxaparin Sodium 40 Mg/0.4 Ml Syringe) 40 mg SUBCUT Q24H [facility] Last Admin: 03/19/23 17:14 Dose: 40 mg Documented By: KIRAN Folic Acid (Folic Acid 1 Mg Tablet) 1 mg PO DAILY [facility] Last Admin: 03/20/23 08:48 Dose: 1 mg Documented By: MICKEY Gabapentin (Gabapentin 100 Mg Capsule) 100 mg PO TID [facility] Last Admin: 03/20/23 08:47 Dose: 100 mg Documented By: MICKEY Hydralazine HCl (Hydralazine Hcl 25 Mg Tablet) 25 mg PO TID [facility]; Protocol Last Admin: 03/20/23 08:47 Dose: 25 mg Documented By: MICKEY Ceftriaxone Sodium 1 gm/ (Sodium Chloride) 50 mls @ 100 mls/hr IV Q24H [facility] Isosorbide Mononitrate (Isosorbide Mononitrate 30 Mg Tab.Er.24h) 30 mg PO DAILY [facility]; Protocol Last Admin: 03/20/23 08:47 Dose: 30 mg Documented By: MICKEY Morphine Sulfate (Morphine Sulfate 2 Mg/Ml Cartridge) 2 mg IVPUSH Q4H PRN; Protocol PRN Reason: Pain, Severe (Pain Scale 7-10) Last Admin: 03/20/23 06:36 Dose: 2 mg Documented By: KATHLEEN Ondansetron HCl (Ondansetron Hcl 4 Mg/2 Ml Vial) 4 mg IVPUSH Q8H PRN PRN Reason: Nausea and Vomiting Sodium Chloride (0.9 % Sodium Chloride Flush 3 Ml Syringe) 3 ml IVFLUSH QSHIFT [facility] Last Admin: 03/20/23 08:46 Dose: 3 ml Documented By: MICKEY Labs 03/19/23 10:38 03/20/23 09:56 Labs: Laboratory Results - last 24 hr 03/19/23 03/19/23 03/19/23 10:38 11:49 13:53 MCV 89.1 MCH 30.6 MCHC 34.3 RDW 14.6 Plt Count 169 MPV 9.6 Immature Gran % (Auto) 0.2 Neut % (Auto) 74.2 H Lymph % (Auto) 9.7 L [place] % (Auto) 13.8 H Eos % (Auto) 1.7 Baso % (Auto) 0.4 Lymph # (Auto) 0.5 L [place] # (Auto) 0.6 Eos # (Auto) 0.1 Baso # (Auto) 0.0 Abs Immat Gran (auto) 0.01 Absolute Neuts (auto) 3.4 Absolute Nucleated RBC 0.000 Nucleated RBC % (auto) 0.0 Anion Gap 11 L Estim Creat Clear Calc 65.5 Estimated GFR > 60 Random Glucose 99 Estimat Average Glucose 82 Hemoglobin A1c % 4.5 Osmolality 257 L Lactic Acid 1.5 Calcium 8.7 Total Bilirubin 0.3 Direct Bilirubin 0.1 AST 17 ALT 8 Alkaline Phosphatase 81 Lactate Dehydrogenase Total Protein 6.0 L Albumin 3.2 L Lipase 18 Carcinoembryonic Ag TSH 2.34 Beta HCG, Quant Urine Color Dark Yellow Urine Appearance Turbid Urine pH 5.5 Ur Specific [place] 1.010 Urine Protein Trace Urine Glucose (UA) Negative Urine Ketones Negative Urine Blood Moderate (2+) H Urine Nitrite Positive H Ur Leukocyte Esterase Large (3+) H Urine RBC 11-20 H Urine WBC >50 H Ur Squamous Epith Cells 3-5 Urine Bacteria 4+ Hyaline Casts 0-2 Urine Osmolality 192 L Ur Random Sodium < 20.0 COVID-19 ([facility]) Negative COVID-19 Clin Com See Note Hepatitis C Ab (EIA) Nonreactive 03/19/23 03/19/23 03/19/23 Unknown Unknown Unknown MCV MCH MCHC RDW Plt Count MPV Immature Gran % (Auto) Neut % (Auto) Lymph % (Auto) [place] % (Auto) Eos % (Auto) Baso % (Auto) Lymph # (Auto) [place] # (Auto) Eos # (Auto) Baso # (Auto) Abs Immat Gran (auto) Absolute Neuts (auto) Absolute Nucleated RBC Nucleated RBC % (auto) Anion Gap Estim Creat Clear Calc Estimated GFR Random Glucose Estimat Average Glucose Hemoglobin A1c % Osmolality Lactic Acid Calcium Total Bilirubin Direct Bilirubin AST ALT Alkaline Phosphatase Lactate Dehydrogenase 183 Cancelled Total Protein Albumin Lipase Carcinoembryonic Ag 7.10 Cancelled TSH Beta HCG, Quant 25 Urine Color Urine Appearance Urine pH Ur Specific [place] Urine Protein Urine Glucose (UA) Urine Ketones Urine Blood Urine Nitrite Ur Leukocyte Esterase Urine RBC Urine WBC Ur Squamous Epith Cells Urine Bacteria Hyaline Casts Urine Osmolality Ur Random Sodium COVID-19 ([facility]) COVID-19 Clin Com Hepatitis C Ab (EIA) 03/19/23 03/20/23 Unknown 06:26 MCV MCH MCHC RDW Plt Count MPV Immature Gran % (Auto) Neut % (Auto) Lymph % (Auto) [place] % (Auto) Eos % (Auto) Baso % (Auto) Lymph # (Auto) [place] # (Auto) Eos # (Auto) Baso # (Auto) Abs Immat Gran (auto) Absolute Neuts (auto) Absolute Nucleated RBC Nucleated RBC % (auto) Anion Gap 11 L Estim Creat Clear Calc 66.7 Estimated GFR > 60 Random Glucose 83 Estimat Average Glucose Hemoglobin A1c % Osmolality Lactic Acid Calcium 8.2 L Total Bilirubin 0.2 Direct Bilirubin AST 16 ALT 7 Alkaline Phosphatase 70 Lactate Dehydrogenase Total Protein 5.7 L Albumin 2.9 L Lipase Carcinoembryonic Ag TSH Beta HCG, Quant Cancelled Urine Color Urine Appearance Urine pH Ur Specific [place] Urine Protein Urine Glucose (UA) Urine Ketones Urine Blood Urine Nitrite Ur Leukocyte Esterase Urine RBC Urine WBC Ur Squamous Epith Cells Urine Bacteria Hyaline Casts Urine Osmolality Ur Random Sodium COVID-19 ([facility]) COVID-19 Clin Com Hepatitis C Ab (EIA) Assessment and Plan (1) Unintentional weight loss: Status: Acute Plan 67F PMH nonischemic cardiomyopathy s/p aicd, cereberal anuerysm s/p clipping and coiling, gout, htn, crohns, former smoker, presented with ams found to have UTI, L1 fracture, hyponatremia. 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 Sodium improved at acceptable rate Continue fluid restriction IV ceftriaxone follow-up urine culture Mentation back to baseline Acute L1 fracture Pain control, physical therapy Will hold off on MRI for now Unintentional weight loss Age and risk factor appropriate cancer screening pending Stage II decubitus ulcer of the sacrum, stage I decubitus ulcer of bilateral buttocks Repositioning Crohn's disease Stable Nonischemic cardiomyopathy, hypertension Continue carvedilol, hydralazine, Imdur DVT prophylaxis with Lovenox Full code reason for continued hospitalization:awaiting cultures, pain tolerance Time Spent With Patient Time: Total time managing care of this patient today ____ minutes. Quality Stroke Does the patient have a stroke diagnosis?: No VTE Prior VTE?: No VTE Risk Level:: Medical - moderate - high VTE Device Contraindication: Treatment Not Indicated VTE Drug Contraindication: N/A - Med Ordered
--- NOTE | 2023-03-20 11:08 | MHC.CM.PN ---
pt has been livivng with son,she is agreeable to str selma dc ready referrals made
[2023-03-20] MEDS: cefTRIAXone sodium 1 GM in 0.9 % Sodium Chloride 50 ML IV (15:05)
--- NOTE | 2023-03-20 15:14 | HO.WOUND ---
Wound Care Consult Reason for consult: sacrum wound Patient in bed at the time of consult. Patient stated about a month ago the soreness began on her bottom. She stated she was using her cream from her psoriasis on the soreness but it wasn't getting better. Patient has bilateral buttock redness . The redness is blanchable at this point. No open area seen. There is also some redness and soreness noted to patients right ishium. The redness is blanchable but when pressure applied, patient does complain of it being sore. She stated she might have landed on it when she fell. No open area at this time. There is a stage III pressure injury to her coccyx. This wound was open to air at the time of consult. Wound bed appearance was mostly fibrin/sloughy tissue with small pink granulation. Wound bed seemed a bit dry. Surrounding tissue was dry and intact. Wound edges were well defined and attached. No drainage noted but no dressing was present. No odor. Wound measurement was 0.7cm x 0.6cm x 0.1cm. Wound cleansed with sea clens. Triad cream applied to wound and covered with a foam border. Redness to the buttocks and right ischium seemed to have gotten better with just the time the patient was on her side during the consult. Patient is also incontinent of urine, wearing a depends pull up and purewick in place. Did discuss with patient the importance of repositioning. She did mention that she is uncomfortable if she is not on her back, but stressed that even the time of her being on her side during the consult, the redness had gotten better. She was agreeable to at least try for a few minutes rotating to relieve the pressure to her bottom. Recommendation: For the coccyx, cleanse the wound with normal saline or sea clense wound cleanser. Apply triad cream top the wound. Cover with foam border. Change dressing every other day and as needed for soiling. Frequent repositioning will be needed to help prevent the redness from worsening or starting any new areas. Also try to keep skin dry from urine. If patient able to get out of bed, this will also help with pressure relief to her bottom. If there are any changes or questions with the wound, please feel free and reconsult wound care.
[2023-03-20 16:00] VITALS: BP 120/58; PULSE 86; RESP 17; TEMP 36.3; O2SAT 94
[2023-03-20] MEDS: Enoxaparin Sodium 40 MG/0.4 ML SYRINGE SUBCUT (17:02)
[2023-03-20 17:06] LABS: Magnesium 1.6 mg/dL (1.6-2.6)
--- NOTE | 2023-03-20 17:11 | P.CNPS_ITS ---
History of Present Illness Date of Service: 03/20/2023 Chief Complaint: general weakness, UTI, falls, hyponatremia Reason for Consult: depression, 30 Lbs unintended weight loss Requesting physician: Bill Perez Discussed with referring provider: Yes Sources of Information: patient interviewed, chart reviewed and crisis/core team assessment reviewed HPI Narrative: Mrs. Reddy is a 67 year-old woman who was brought by son to [facility] due to recent fall. Pt found to be hyponatremic, UTI and compression fracture. Per family, pt has been isolating more and more since June of this year. Per son, pt is usually outgoing and bright affect and this is uncharacteristic of her. Pt apparently had been in most day than not to the point that has developed a pressure ulcer on her lower back. Pt seen today. Note that sodium has improved from 124 to 133. Pt received antibiotic for UTI. Pt reports feeling physically much better. She reports increased energy. She also reports she feels significant relief knowing that unintentional weight loss was not sign of more serious illness. She denies SI/HI. She reports since June she has been with no motivation, mostly at home. she has declined going to her medical appointments. She reports after she felt, her son told her that it was time for her to be seen as she was not her usual self. She reports she now realizes she should have come to the hospital a while ago. She denies SI/HI. She reports sleeping better. No hx of psychosis or delusions. Past Psychiatric History: Inpatient: OP:none [facility] Medical History ICD (implantable cardioverter-defibrillator) in place Gout Cerebral aneurysm Essential hypertension NICM (nonischemic cardiomyopathy) Surgical History History of implantable cardioverter-defibrillator (ICD) placement (~10/12/14) History of cardiac catheterization (~2013) Diagnostics Vital Signs (24Hr): Vital Signs - 24 hr 03/19/23 17:12 03/19/23 20:00 03/20/23 03:18 Temperature 97.7 F 97.5 F Pulse Rate 80 92 71 Respiratory Rate 24 H 17 17 Blood Pressure 165/84 H 125/90 H 147/72 H Pulse Oximetry 96 97 94 Oxygen Delivery Method Room Air Room Air Room Air 03/20/23 07:21 03/20/23 16:00 Temperature 97.1 F 97.3 F Pulse Rate 72 86 Respiratory Rate 12 17 Blood Pressure 120/58 L Pulse Oximetry 95 94 Oxygen Delivery Method Room Air Room Air BMI result Body Mass Index 19.0 Labs 03/21/23 05:16 03/21/23 05:16 Labs: Laboratory Results - last 48 hr 03/19/23 03/19/23 03/19/23 10:38 11:49 13:53 WBC 4.6 L RBC 3.76 L Hgb 11.5 L Hct 33.5 L MCV 89.1 MCH 30.6 MCHC 34.3 RDW 14.6 Plt Count 169 MPV 9.6 Immature Gran % (Auto) 0.2 Neut % (Auto) 74.2 H Lymph % (Auto) 9.7 L [place] % (Auto) 13.8 H Eos % (Auto) 1.7 Baso % (Auto) 0.4 Lymph # (Auto) 0.5 L [place] # (Auto) 0.6 Eos # (Auto) 0.1 Baso # (Auto) 0.0 Abs Immat Gran (auto) 0.01 Absolute Neuts (auto) 3.4 Absolute Nucleated RBC 0.000 Nucleated RBC % (auto) 0.0 Sodium 124 L Potassium 3.3 Chloride 95 L Carbon Dioxide 21 L Anion Gap 11 L BUN 12 Creatinine 0.68 Estim Creat Clear Calc 65.5 Estimated GFR > 60 Random Glucose 99 Estimat Average Glucose 82 Hemoglobin A1c % 4.5 Osmolality 257 L Lactic Acid 1.5 Calcium 8.7 Magnesium Total Bilirubin 0.3 Direct Bilirubin 0.1 AST 17 ALT 8 Alkaline Phosphatase 81 Lactate Dehydrogenase Total Protein 6.0 L Albumin 3.2 L Lipase 18 Carcinoembryonic Ag TSH 2.34 Beta HCG, Quant Urine Color Dark Yellow Urine Appearance Turbid Urine pH 5.5 Ur Specific [place] 1.010 Urine Protein Trace Urine Glucose (UA) Negative Urine Ketones Negative Urine Blood Moderate (2+) H Urine Nitrite Positive H Ur Leukocyte Esterase Large (3+) H Urine RBC 11-20 H Urine WBC >50 H Ur Squamous Epith Cells 3-5 Urine Bacteria 4+ Hyaline Casts 0-2 Urine Osmolality 192 L Ur Random Sodium < 20.0 COVID-19 ([facility]) Negative COVID-19 Clin Com See Note Hepatitis C Ab (EIA) Nonreactive 03/19/23 03/19/23 03/19/23 21:39 Unknown Unknown WBC RBC Hgb Hct MCV MCH MCHC RDW Plt Count MPV Immature Gran % (Auto) Neut % (Auto) Lymph % (Auto) [place] % (Auto) Eos % (Auto) Baso % (Auto) Lymph # (Auto) [place] # (Auto) Eos # (Auto) Baso # (Auto) Abs Immat Gran (auto) Absolute Neuts (auto) Absolute Nucleated RBC Nucleated RBC % (auto) Sodium 128 L 129 L Potassium Chloride Carbon Dioxide Anion Gap BUN Creatinine Estim Creat Clear Calc Estimated GFR Random Glucose Estimat Average Glucose Hemoglobin A1c % Osmolality Lactic Acid Calcium Magnesium Total Bilirubin Direct Bilirubin AST ALT Alkaline Phosphatase Lactate Dehydrogenase 183 Cancelled Total Protein Albumin Lipase Carcinoembryonic Ag 7.10 TSH Beta HCG, Quant Urine Color Urine Appearance Urine pH Ur Specific [place] Urine Protein Urine Glucose (UA) Urine Ketones Urine Blood Urine Nitrite Ur Leukocyte Esterase Urine RBC Urine WBC Ur Squamous Epith Cells Urine Bacteria Hyaline Casts Urine Osmolality Ur Random Sodium COVID-19 ([facility]) COVID-19 Clin Com Hepatitis C Ab (EIA) 03/19/23 03/19/23 03/20/23 Unknown Unknown 02:08 WBC RBC Hgb Hct MCV MCH MCHC RDW Plt Count MPV Immature Gran % (Auto) Neut % (Auto) Lymph % (Auto) [place] % (Auto) Eos % (Auto) Baso % (Auto) Lymph # (Auto) [place] # (Auto) Eos # (Auto) Baso # (Auto) Abs Immat Gran (auto) Absolute Neuts (auto) Absolute Nucleated RBC Nucleated RBC % (auto) Sodium 130 L Potassium Chloride Carbon Dioxide Anion Gap BUN Creatinine Estim Creat Clear Calc Estimated GFR Random Glucose Estimat Average Glucose Hemoglobin A1c % Osmolality Lactic Acid Calcium Magnesium Total Bilirubin Direct Bilirubin AST ALT Alkaline Phosphatase Lactate Dehydrogenase Total Protein Albumin Lipase Carcinoembryonic Ag Cancelled TSH Beta HCG, Quant 25 Cancelled Urine Color Urine Appearance Urine pH Ur Specific [place] Urine Protein Urine Glucose (UA) Urine Ketones Urine Blood Urine Nitrite Ur Leukocyte Esterase Urine RBC Urine WBC Ur Squamous Epith Cells Urine Bacteria Hyaline Casts Urine Osmolality Ur Random Sodium COVID-19 ([facility]) COVID-19 Clin Com Hepatitis C Ab (EIA) 03/20/23 03/20/23 03/20/23 06:26 09:56 16:45 WBC RBC Hgb Hct MCV MCH MCHC RDW Plt Count MPV Immature Gran % (Auto) Neut % (Auto) Lymph % (Auto) [place] % (Auto) Eos % (Auto) Baso % (Auto) Lymph # (Auto) [place] # (Auto) Eos # (Auto) Baso # (Auto) Abs Immat Gran (auto) Absolute Neuts (auto) Absolute Nucleated RBC Nucleated RBC % (auto) Sodium 130 L 133 L Potassium 3.3 Chloride 102 Carbon Dioxide 20 L Anion Gap 11 L BUN 9 Creatinine 0.62 Estim Creat Clear Calc 66.7 Estimated GFR > 60 Random Glucose 83 Estimat Average Glucose Hemoglobin A1c % Osmolality Lactic Acid Calcium 8.2 L Magnesium 1.6 Total Bilirubin 0.2 Direct Bilirubin AST 16 ALT 7 Alkaline Phosphatase 70 Lactate Dehydrogenase Total Protein 5.7 L Albumin 2.9 L Lipase Carcinoembryonic Ag TSH Beta HCG, Quant Urine Color Urine Appearance Urine pH Ur Specific [place] Urine Protein Urine Glucose (UA) Urine Ketones Urine Blood Urine Nitrite Ur Leukocyte Esterase Urine RBC Urine WBC Ur Squamous Epith Cells Urine Bacteria Hyaline Casts Urine Osmolality Ur Random Sodium COVID-19 ([facility]) COVID-19 Clin Com Hepatitis C Ab (EIA) Imaging Radiology Impressions: ITS Impressions Head CT 03/19/23 11:21 IMPRESSION: No acute intracranial pathology. Left frontal sinus opacification. Small air-fluid level in the right sphenoid sinus. Chest X-Ray 03/19/23 11:22 IMPRESSION: Stable appearance of interstitial lung disease. No acute abnormality. Lumbar Spine X-Ray 03/19/23 17:03 IMPRESSION: 1. New compression fracture of L1. MRI could be useful to assess for edema if an acute fracture is suspected. 2. Grade 1 anterolisthesis of L5. 3. Degenerative changes throughout the lumbosacral spine. Sacrum and Coccyx X-Ray 03/19/23 17:03 IMPRESSION: 1. New compression fracture of L1. MRI could be useful to assess for edema if an acute fracture is suspected. 2. Grade 1 anterolisthesis of L5. 3. Degenerative changes throughout the lumbosacral spine. Chest CT 03/20/23 10:59 IMPRESSION: Severe interstitial lung disease with honeycombing. Enlarged heart. Severe L1 vertebral body compression fracture. Gallstones. Fleischner guidelines were followed. Mental Status Exam Mental Status Exam Narrative: Appearance: wearing hospital gown, fair hygiene, in NAD Behavior: cooperative Psychomotor: no agitation or retardation noted Speech: clear, normal rate/rhythm/volume, spontaneous TP: linear TC: no signs of psychosis or delusions, feeling better physically and emotionally Mood: much better Affect: congruent, brightens up SI: none HI: none VH/AH: none Delusions: none Insight/judgment: fair x 2. memory/cog: alert, oriented x 3. Medications Medications Current Medications Acetaminophen (Acetaminophen 325 Mg Tablet) 650 mg PO Q6H PRN PRN Reason: Pain, Mild (Pain Scale 1-3) Carvedilol (Carvedilol 25 Mg Tablet) 25 mg PO BID [facility]; Protocol Last Admin: 03/20/23 08:47 Dose: 25 mg Docusate Sodium (Docusate Sodium 100 Mg Capsule) 100 mg PO DAILY PRN PRN Reason: Constipation Enoxaparin Sodium (Enoxaparin Sodium 40 Mg/0.4 Ml Syringe) 40 mg SUBCUT Q24H [facility] Last Admin: 03/20/23 17:02 Dose: 40 mg Folic Acid (Folic Acid 1 Mg Tablet) 1 mg PO DAILY [facility] Last Admin: 03/20/23 08:48 Dose: 1 mg Gabapentin (Gabapentin 100 Mg Capsule) 100 mg PO TID [facility] Last Admin: 03/20/23 15:05 Dose: 100 mg Hydralazine HCl (Hydralazine Hcl 25 Mg Tablet) 25 mg PO TID [facility]; Protocol Last Admin: 03/20/23 15:05 Dose: 25 mg Ceftriaxone Sodium 1 gm/ (Sodium Chloride) 50 mls @ 100 mls/hr IV Q24H [facility] Last Infusion: 03/20/23 16:32 Dose: Infused Isosorbide Mononitrate (Isosorbide Mononitrate 30 Mg Tab.Er.24h) 30 mg PO DAILY [facility]; Protocol Last Admin: 03/20/23 08:47 Dose: 30 mg Morphine Sulfate (Morphine Sulfate 2 Mg/Ml Cartridge) 2 mg IVPUSH Q4H PRN; Protocol PRN Reason: Pain, Severe (Pain Scale 7-10) Last Admin: 03/20/23 16:58 Dose: 2 mg Ondansetron HCl (Ondansetron Hcl 4 Mg/2 Ml Vial) 4 mg IVPUSH Q8H PRN PRN Reason: Nausea and Vomiting Sodium Chloride (0.9 % Sodium Chloride Flush 3 Ml Syringe) 3 ml IVFLUSH QSHIFT [facility] Last Admin: 03/20/23 17:03 Dose: 3 ml Allergies Allergies Allergy/AdvReac Type Severity Reaction Status Date / Time SAUL Inhibitors Allergy Severe ANAPHYLAXIS Verified 03/19/23 10:07 [SAUL INHIBITORS] amoxicillin [AMOXICILLIN] Allergy Unknown DIARRHEA Verified 03/19/23 10:07 hydrochlorothiazide Allergy Unknown UNKNOWN Verified 03/19/23 10:07 [HYDROCHLOROTHIAZIDE] Penicillins [PENICILLINS] Allergy Unknown UNKNOWN Verified 03/19/23 10:07 lisinopril Allergy Difficulty Verified 03/19/23 10:08 Swallowing Assessment & Plan Assessment & Plan (1) MDD (major depressive disorder), single episode with melancholic features: Status: Acute Code(s): F32.9 - Major depressive disorder, single episode, unspecified Plan Mrs. Reddy is a 67 year-old woman who was brought by son after fall. Per son, pt has been isolating, withdrawn, mostly in her room to the point that she developed pressure ulcer. She has also had a 30Lbs unintentional weight loss. Pt found to have UTI and to be hyponatremic. Sodium levels improving from 124 to 133. Pt does report a significant improvement in mood with treatment of especially hyponatremia- which can have effects on loss of energy levels, fatigue, depression. At this time, pt denies suicidal ideation. She is open to be referred to outpatient mental health services. Will obtain collateral information from son as well. PLAN 1. Will hold off starting antidepressant at this point. Note that hypotonic hyponatremia, with low serum osmolarity with urine osmolarity higher than 100 usually not pattern seen in psychogenic polydipsia (usually presents with urine osmolarity of less than 100). If in fact she does have impaired free water excretion, antidepressant will worse hyponatremia by this same mechanism. Would recommend if considering antidepressant, remeron 15mg po qhs and adjust as tolerated. Avoiding SSRIs. Total time managing care of this patient today ____ minutes.
[2023-03-20 17:34] LABS: Vitamin B12 318 pg/mL (200-900)
[2023-03-20 19:52] VITALS: BP 141/67; PULSE 94; RESP 17; TEMP 36.6; O2SAT 95
[2023-03-21 03:29] VITALS: BP 121/62; PULSE 71; RESP 17; TEMP 37; O2SAT 94
[2023-03-21] MEDS: Morphine Sulfate 2 MG/ML CARTRIDGE IVPUSH ×5 (05:27→21:38)
[2023-03-21 05:56] LABS: Hematocrit 30.2 % (37.0-47.0); Hemoglobin 10.1 g/dl (12.0-16.0); Mean Corpuscular HGB Conc 33.4 g/dl (31.0-35.0); Mean Corpuscular Hemoglobin 30.9 pg (27.0-33.0); Mean Corpuscular Volume 92.4 fL (80.0-98.0); Mean Platelet Volume 9.5 fL (9.4-12.3); Platelet Count 127 X10*3/uL (160-400); Red Blood Count 3.27 X10*6/uL (4.20-5.50); Red Cell Distribution Width 15.2 % (11.0-16.0); White Blood Count 4.2 X10*3/uL (4.8-10.8)
[2023-03-21 06:10] LABS: Anion Gap 11 (12-20); Blood Urea Nitrogen 8 mg/dL (9-16); Calcium 8.2 mg/dL (8.4-10.2); Carbon Dioxide 21 mmol/L (22-29); Chloride 104 mmol/L (96-108); Creatinine Clr Calc Pharmacy 70.1; Estimated Glomerular Filt Rate > 60; Glucose Fasting 81 mg/dL (60-99); Potassium 3.3 mmol/L (3.3-5.1); Sodium 133 mmol/L (135-145)
[2023-03-21 07:48] VITALS: BP 149/69; PULSE 74; RESP 20; TEMP 36.3; O2SAT 96
[2023-03-21] MEDS: hydrALAZINE HCl 25 MG TABLET PO ×3 (09:06→19:51)
[2023-03-21] MEDS: Folic Acid 1 MG TABLET PO (09:06)
[2023-03-21] MEDS: 0.9 % Sodium Chloride Flush 3 ML SYRINGE IVFLUSH ×2 (09:06→19:52)
[2023-03-21] MEDS: carvediloL 25 MG TABLET PO ×2 (09:06→19:52)
[2023-03-21] MEDS: Isosorbide Mononitrate 30 MG TAB.ER.24H PO (09:06)
[2023-03-21] MEDS: Gabapentin 100 MG CAPSULE PO ×3 (09:06→19:51)
--- NOTE | 2023-03-21 10:16 | PM.DS ---
DS: Providers Provider Date of Service: 03/21/23 Date of admission: 03/19/23 16:54 Primary care physician: None Physician Consults: 03/19/23 17:17 Consult to Psychiatry Routine Consulting Provider: Psych Covering Reason for consultation: depression, anxiety, weight loss 03/19/23 17:47 Consult to Nephrology Routine Consulting Provider: John Burk Reason for consultation: hyponatremia DS: Diagnosis Discharge Diagnosis (1) MDD (major depressive disorder), single episode with melancholic features: Status: Acute DS: Summary Hospital Course Hospital Course: from initial hpi: 67-year-old female with history of nonischemic cardiomyopathy s/p ICD placement, history of cerebral aneurysm s/p clipping coiling, gout, hypertension, former smoker with 40 pack year history, and Crohn's disease presented to the hospital earlier today with her son with whom she lives for evaluation of generalized weakness ongoing for about 1 month. She states the weakness has been progressive and she has been unable to get out of bed without significant difficulty and requires furniture surfing while ambulating which is not her baseline. Yesterday she did have a fall onto her buttock and denies any head strike or loss of consciousness. Since then has had 10/10 pain in the sacrum/coccyx region. She tells me that over the last week, she has also developed urge incontinence, dysuria, and suprapubic pressure. She tells me that because she has been unable to get out of bed much, has developed pressure ulcer on the sacrum. She also tells me that since the beginning of the year, has had a 30 lb unintentional weight loss. She states she has little appetite but has been drinking a lot of fluids. Drinks about 8, 16 oz bottles of water on a daily basis. She denies any fevers, chills, sore throat, headache, abdominal pain, nausea, vomiting, cough, shortness of breath, chest pain, lightheadedness. She does report occasional diarrhea related to her Crohn's disease but this is rare. Denies any bright red blood per rectum or melena. Patient is alert and oriented x4 but does appear somewhat confused when telling story or giving history with small details. Her son reports this is not her baseline. He does report that she has been endorsing depression anxiety. Upon questioning further on this, the patient does report anxiety about her health and has been depressed since COVID stating she is typically a happy person. She has not been following with any primary care provider. She reports she is up to date with routine cancer screenings. In the ED, vital stable. No leukocytosis. Mild normocytic anemia with H/H 11.5/33.5%. Renal function normal. Sodium 124, Cl 95, lytes otherwise normal. Serum osm 257, urine osm 192. UA with 3+ luekocytes, positive nitrites, 2+ blooid, positive urinary sediment, 4+ bacteria. Negative for COVID-19. Head CT negative for acute intracranial abnormality, but does show left frontal sinus opacification and small air-fluid level in the right sphenoid sinus. CXR negative for any acute cardiopulmonary abnormality but does show interstitial lung disease. hospital course: Patient was admitted for acute metabolic encephalopathy due to hyponatremia and urinary tract infection. 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 She was put on fluid restriction and sodium improved to normal at an acceptable rate. She should continue fluid restriction of about 1500 cc per day. For UTI she was treated with ceftriaxone. She will be transitioned to 5 more days of p.o. Ceftin. Her mentation is back to baseline. For acute L1 fracture she was seen by Physical therapy who recommended short-term rehab at long-term facility. Patient is able to ambulate with walker with manageable pain. For unintentional weight loss tumor markers were drawn which are pending. Patient should follow up outpatient for age-appropriate cancer screening. She did have a noncontrast CT chest which did not reveal any suspicious mass, but did reveal chronic interstitial lung disease. Patient is asymptomatic. For nonischemic cardiomyopathy and hypertension she was continued on carvedilol, hydralazine, Imdur. Patient appears euvolemic. For stage II decubitus ulcer of the sacrum and stage I decubitus also the bilateral buttocks she received repositioning. For Crohn's disease she will follow up with GI. Patient is feeling better will be discharged to long-term facility. Time Spent with Patient Time attestation: Total time managing care of this patient today ____ minutes. Discharge coordination time: Greater than 30 minutes Quality: Safe Use of Opioids Does Pt have an Active Cancer Diagnosis on the Problem List?: No Quality: Stroke Does the patient have a stroke diagnosis?: No Physical Exam Vital Signs: Vital Signs: Last Vital Signs Temp 97.4 F 03/21/23 07:48 Pulse 74 03/21/23 07:48 Resp 20 03/21/23 07:48 BP 149/69 H 03/21/23 07:48 Pulse Ox 96 03/21/23 07:48 O2 Del Method Room Air 03/21/23 07:48 BMI result Body Mass Index 19.0 General: AO X 3, no acute distress Resp: CTA bilateral, no accessory muscles used CVS: S1,S2,RRR GI: soft, non tender, non distended Neuro: motor grossly intact, alert Psych: appropriate affect, appropriate insight DS: Data Data Completed and Pending Labs on day of discharge: Laboratory Results - last 24 hr 03/20/23 03/21/23 16:45 05:16 WBC 4.2 L RBC 3.27 L Hgb 10.1 L Hct 30.2 L MCV 92.4 MCH 30.9 MCHC 33.4 RDW 15.2 Plt Count 127 L MPV 9.5 Absolute Nucleated RBC 0.000 Nucleated RBC % (auto) 0.0 Sodium 133 L Potassium 3.3 Chloride 104 Carbon Dioxide 21 L Anion Gap 11 L BUN 8 L Creatinine 0.59 Estim Creat Clear Calc 70.1 Estimated GFR > 60 Fasting Glucose 81 Calcium 8.2 L Magnesium 1.6 Vitamin B12 318 Preliminary micro results at discharge 03/19/23 10:38 Blood Culture - Preliminary Blood - Venous No growth after 24 hours. 03/19/23 10:38 Blood Culture - Preliminary Blood - Venous No growth after 24 hours. 03/19/23 Unknown Urine Culture - Preliminary Urine Catheterized - Straight Catheter Gram negative samia Discharge Plan Discharge Anticipated Discharge Date/Time: 03/21/23 10:06 Patient Disposition: Xfer SNF Discharge Diagnosis: l1 fracture, hyponatremia, uti, weight loss, ILD Referrals: Physician,None [Primary Care Provider] - 1 Week Discharge Medications: New cefuroxime axetil 500 mg tablet 500 mg PO BID Qty: 10 0RF Continued isosorbide mononitrate 30 mg tablet extended release 24 hr 30 mg PO DAILY Qty: 90 3RF carvedilol 25 mg tablet 25 mg PO BID Qty: 90 3RF hydralazine 25 mg tablet 25 mg PO TID Qty: 270 3RF folic acid 1 mg tablet 1 mg PO DAILY Discharge Orders: Discharge Order (Routine); Ordered 03/21/23 Ordered By: Bill Perez Diet: Advance to usual diet Activity on Discharge: As tolerated Stand Alone Forms: Patient Portal Discharge page Care Plan Goals: recovery Health Concerns: l fracture, weight loss, uti, ild Plan of Treatment: rehab, follow up with pcp for weight loss work up, 5 more days ceftin, Assessment: see above
--- NOTE | 2023-03-21 10:36 | HO.PM.IMPN ---
Subjective Subjective Date of Service: 03/21/23 Interval History: improving back pain Physical Exam Vital Signs: Vital Signs: Last Vital Signs Temp 97.4 F 03/21/23 07:48 Pulse 74 03/21/23 07:48 Resp 20 03/21/23 07:48 BP 149/69 H 03/21/23 07:48 Pulse Ox 96 03/21/23 07:48 O2 Del Method Room Air 03/21/23 07:48 BMI result Body Mass Index 19.0 General: AO X 3, no acute distress Resp: CTA bilateral, no accessory muscles used CVS: S1,S2,RRR GI: soft, non tender, non distended Neuro: motor grossly intact, alert Psych: appropriate affect, appropriate insight Objective Data Active Medications Acetaminophen (Acetaminophen 325 Mg Tablet) 650 mg PO Q6H PRN PRN Reason: Pain, Mild (Pain Scale 1-3) Carvedilol (Carvedilol 25 Mg Tablet) 25 mg PO BID ON LICENSE OF [facility]; Protocol Last Admin: 03/21/23 09:06 Dose: 25 mg Documented By: DELORES Docusate Sodium (Docusate Sodium 100 Mg Capsule) 100 mg PO DAILY PRN PRN Reason: Constipation Enoxaparin Sodium (Enoxaparin Sodium 40 Mg/0.4 Ml Syringe) 40 mg SUBCUT Q24H ON LICENSE OF [facility] Last Admin: 03/20/23 17:02 Dose: 40 mg Documented By: MICKEY Folic Acid (Folic Acid 1 Mg Tablet) 1 mg PO DAILY ON LICENSE OF [facility] Last Admin: 03/21/23 09:06 Dose: 1 mg Documented By: DELORES Gabapentin (Gabapentin 100 Mg Capsule) 100 mg PO TID ON LICENSE OF [facility] Last Admin: 03/21/23 09:06 Dose: 100 mg Documented By: DELORES Hydralazine HCl (Hydralazine Hcl 25 Mg Tablet) 25 mg PO TID ON LICENSE OF [facility]; Protocol Last Admin: 03/21/23 09:06 Dose: 25 mg Documented By: DELORES Ceftriaxone Sodium 1 gm/ (Sodium Chloride) 50 mls @ 100 mls/hr IV Q24H ON LICENSE OF [facility] Last Infusion: 03/20/23 16:32 Dose: Infused Documented By: MICKEY Isosorbide Mononitrate (Isosorbide Mononitrate 30 Mg Tab.Er.24h) 30 mg PO DAILY ON LICENSE OF [facility]; Protocol Last Admin: 03/21/23 09:06 Dose: 30 mg Documented By: DELORES Morphine Sulfate (Morphine Sulfate 2 Mg/Ml Cartridge) 2 mg IVPUSH Q4H PRN; Protocol PRN Reason: Pain, Severe (Pain Scale 7-10) Last Admin: 03/21/23 09:13 Dose: 2 mg Documented By: DELORES Ondansetron HCl (Ondansetron Hcl 4 Mg/2 Ml Vial) 4 mg IVPUSH Q8H PRN PRN Reason: Nausea and Vomiting Sodium Chloride (0.9 % Sodium Chloride Flush 3 Ml Syringe) 3 ml IVFLUSH QSHIFT [facility] Last Admin: 03/21/23 09:06 Dose: 3 ml Documented By: DELORES Labs 03/21/23 05:16 03/21/23 05:16 Labs: Laboratory Results - last 24 hr 03/20/23 03/21/23 16:45 05:16 MCV 92.4 MCH 30.9 MCHC 33.4 RDW 15.2 Plt Count 127 L MPV 9.5 Absolute Nucleated RBC 0.000 Nucleated RBC % (auto) 0.0 Anion Gap 11 L Estim Creat Clear Calc 70.1 Estimated GFR > 60 Fasting Glucose 81 Calcium 8.2 L Magnesium 1.6 Vitamin B12 318 Microbiology Microbiology Results: Microbiology 03/19/23 10:38 Blood Culture - Preliminary Blood - Venous No growth after 24 hours. 03/19/23 10:38 Blood Culture - Preliminary Blood - Venous No growth after 24 hours. 03/19/23 Unknown Urine Culture - Preliminary Urine Catheterized - Straight Catheter Gram negative samia Assessment and Plan (1) Unintentional weight loss: Status: Acute Plan 67F PMH nonischemic cardiomyopathy s/p aicd, cereberal anuerysm s/p clipping and coiling, gout, htn, crohns, former smoker, presented with ams found to have UTI, L1 fracture, hyponatremia. 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 Sodium improved at acceptable rate Continue fluid restriction IV ceftriaxone follow-up urine culture Mentation back to baseline Acute L1 fracture Pain control, physical therapy Will hold off on MRI for now Unintentional weight loss Age and risk factor appropriate cancer screening pending Stage II decubitus ulcer of the sacrum, stage I decubitus ulcer of bilateral buttocks Repositioning Crohn's disease Stable Nonischemic cardiomyopathy, hypertension Continue carvedilol, hydralazine, Imdur DVT prophylaxis with Lovenox Full code reason for continued hospitalization:awaiting cultures, pain tolerance Time Spent With Patient Time: Total time managing care of this patient today ____ minutes. Quality Stroke Does the patient have a stroke diagnosis?: No VTE Prior VTE?: No VTE Risk Level:: Medical - moderate - high VTE Device Contraindication: Treatment Not Indicated VTE Drug Contraindication: N/A - Med Ordered
--- NOTE | 2023-03-21 13:35 | MHC.CM.PN ---
pt has been accepted for 03/22 at [facility] ..pt will have her 3 day stay at that time dc planned for 12:30 to [facility] amb booked
[2023-03-21 13:39] VITALS: BMI 19.0
--- NOTE | 2023-03-21 13:49 | MHC.CLN ---
NUTRITION DIET=REGULAR, 1500 ML FLUID RESTRICTION. INCREASED NUTRITION NEEDS DUE TO STAGE III WOUND TO COCCYX. ENSURE MAX BID PROVIDES 300 KCALS, 60 G PROTEIN, 600 ML FREE WATER. SUPPLEMENT TO PROMOTE WOUND HEALING. WEIGHT LOSS -14.6% X ONE YEAR. CONTINUE CURRENT DIET AND SUPPLEMENT. FOLLOW FOR INTAKE, WOUND HEALING AND LABS.
[2023-03-21] MEDS: cefTRIAXone sodium 1 GM in 0.9 % Sodium Chloride 50 ML IV (15:17)
[2023-03-21 15:37] VITALS: BP 168/80; PULSE 90; RESP 20; TEMP 36.3; O2SAT 93
[2023-03-21] MEDS: Enoxaparin Sodium 40 MG/0.4 ML SYRINGE SUBCUT (17:29)
[2023-03-21 19:45] VITALS: BP 143/77; PULSE 100; RESP 17; TEMP 37.1; O2SAT 94
[2023-03-22] MEDS: Morphine Sulfate 2 MG/ML CARTRIDGE IVPUSH ×5 (01:51→23:06)
[2023-03-22 04:00] VITALS: BP 124/72; PULSE 92; RESP 18; TEMP 36.6; O2SAT 100
[2023-03-22 07:28] VITALS: BP 148/66; PULSE 115; RESP 18; TEMP 37.7; O2SAT 90
[2023-03-22] MEDS: Isosorbide Mononitrate 30 MG TAB.ER.24H PO (07:50)
[2023-03-22] MEDS: carvediloL 25 MG TABLET PO ×2 (07:50→19:55)
[2023-03-22] MEDS: 0.9 % Sodium Chloride Flush 3 ML SYRINGE IVFLUSH ×3 (07:50→19:55)
[2023-03-22] MEDS: guaiFENesin DM 600/30 1 TAB TAB.ER.12H PO ×2 (07:50→19:55)
[2023-03-22] MEDS: Folic Acid 1 MG TABLET PO (07:50)
[2023-03-22] MEDS: Gabapentin 100 MG CAPSULE PO ×3 (07:50→19:55)
[2023-03-22] MEDS: hydrALAZINE HCl 25 MG TABLET PO ×3 (07:50→19:55)
--- NOTE | 2023-03-22 09:09 | HO.PM.IMPN ---
Subjective Subjective Date of Service: 03/22/23 Interval History: improving back pain Physical Exam Vital Signs: Vital Signs: Last Vital Signs Temp 99.8 F 03/22/23 07:28 Pulse 115 H 03/22/23 07:28 Resp 18 03/22/23 07:28 BP 148/66 H 03/22/23 07:28 Pulse Ox 90 L 03/22/23 07:28 O2 Del Method Room Air 03/22/23 07:28 BMI result Body Mass Index 19.0 General: AO X 3, no acute distress Resp: CTA bilateral, no accessory muscles used CVS: S1,S2,RRR GI: soft, non tender, non distended Neuro: motor grossly intact, alert Psych: appropriate affect, appropriate insight Objective Data Active Medications Acetaminophen (Acetaminophen 325 Mg Tablet) 650 mg PO Q6H PRN PRN Reason: Pain, Mild (Pain Scale 1-3) Carvedilol (Carvedilol 25 Mg Tablet) 25 mg PO BID [facility]; Protocol Last Admin: 03/22/23 07:50 Dose: 25 mg Documented By: KAROLINAEMA Docusate Sodium (Docusate Sodium 100 Mg Capsule) 100 mg PO DAILY PRN PRN Reason: Constipation Enoxaparin Sodium (Enoxaparin Sodium 40 Mg/0.4 Ml Syringe) 40 mg SUBCUT Q24H [facility] Last Admin: 03/21/23 17:29 Dose: 40 mg Documented By: SOLISPE Folic Acid (Folic Acid 1 Mg Tablet) 1 mg PO DAILY [facility] Last Admin: 03/22/23 07:50 Dose: 1 mg Documented By: ARI Gabapentin (Gabapentin 100 Mg Capsule) 100 mg PO TID [facility] Last Admin: 03/22/23 07:50 Dose: 100 mg Documented By: KAROLINAEMA Guaifenesin/Dextromethorphan (Guaifenesin Dm 600/30 1 Tab Tab.Er.12h) 1 tab PO BID [facility] Last Admin: 03/22/23 07:50 Dose: 1 tab Documented By: COTEMA Hydralazine HCl (Hydralazine Hcl 25 Mg Tablet) 25 mg PO TID [facility]; Protocol Last Admin: 03/22/23 07:50 Dose: 25 mg Documented By: KAROLINAEMA Ceftriaxone Sodium 1 gm/ (Sodium Chloride) 50 mls @ 100 mls/hr IV Q24H [facility] Last Infusion: 03/21/23 16:13 Dose: Infused Documented By: SOLISASTRID Isosorbide Mononitrate (Isosorbide Mononitrate 30 Mg Tab.Er.24h) 30 mg PO DAILY [facility]; Protocol Last Admin: 03/22/23 07:50 Dose: 30 mg Documented By: ARI Morphine Sulfate (Morphine Sulfate 2 Mg/Ml Cartridge) 2 mg IVPUSH Q4H PRN; Protocol PRN Reason: Pain, Severe (Pain Scale 7-10) Last Admin: 03/22/23 06:20 Dose: 2 mg Documented By: ALICIA Ondansetron HCl (Ondansetron Hcl 4 Mg/2 Ml Vial) 4 mg IVPUSH Q8H PRN PRN Reason: Nausea and Vomiting Sodium Chloride (0.9 % Sodium Chloride Flush 3 Ml Syringe) 3 ml IVFLUSH QSHIFT [facility] Last Admin: 03/22/23 07:50 Dose: 3 ml Documented By: ARI Labs 03/21/23 05:16 03/21/23 05:16 Microbiology Microbiology Results: Microbiology 03/19/23 Unknown Urine Culture - Preliminary Urine Catheterized - Straight Catheter Gram negative samia 03/19/23 10:38 Blood Culture - Preliminary Blood - Venous No growth after 48 hours. 03/19/23 10:38 Blood Culture - Preliminary Blood - Venous No growth after 48 hours. Assessment and Plan (1) Unintentional weight loss: Status: Acute Plan 67F PMH nonischemic cardiomyopathy s/p aicd, cereberal anuerysm s/p clipping and coiling, gout, htn, crohns, former smoker, presented with ams found to have UTI, L1 fracture, hyponatremia. 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 Sodium improved at acceptable rate Continue fluid restriction IV ceftriaxone follow-up urine culture Mentation back to baseline tachypnea mucinex, incentive spirometry recheck covid Acute L1 fracture Pain control, physical therapy Will hold off on MRI for now Unintentional weight loss Age and risk factor appropriate cancer screening pending Stage II decubitus ulcer of the sacrum, stage I decubitus ulcer of bilateral buttocks Repositioning Crohn's disease Stable Nonischemic cardiomyopathy, hypertension Continue carvedilol, hydralazine, Imdur DVT prophylaxis with Lovenox Full code reason for continued hospitalization:tachy Time Spent With Patient Time: Total time managing care of this patient today ____ minutes. Quality Stroke Does the patient have a stroke diagnosis?: No VTE Prior VTE?: No VTE Risk Level:: Medical - moderate - high VTE Device Contraindication: Treatment Not Indicated VTE Drug Contraindication: N/A - Med Ordered
[2023-03-22 09:54] LABS: COVID-19 Test Positive (Negative); IDNOW Serial# 08D9AD1C
[2023-03-22 10:14] VITALS: O2SAT 87; O2SAT 93
[2023-03-22 11:18] LABS: Cancer Antigen 15-3 64 U/mL (<32)
[2023-03-22] MEDS: dexAMETHasone sod phosphate 4 MG/ML VIAL 6 MG IVPUSH ×2 (11:31→11:32)
[2023-03-22] MEDS: Remdesivir 200 MG in 0.9 % Sodium Chloride 210 ML 105 MG IV (11:32)
[2023-03-22 13:58] LABS: Carbohydrate Antigen 19-9 768 U/mL (<34)
[2023-03-22 15:03] VITALS: BP 109/56; PULSE 88; RESP 20; TEMP 36.5; O2SAT 96
[2023-03-22] MEDS: Enoxaparin Sodium 40 MG/0.4 ML SYRINGE SUBCUT (17:01)
[2023-03-22] MEDS: cefTRIAXone sodium 1 GM in 0.9 % Sodium Chloride 50 ML IV (17:03)
[2023-03-22 19:12] VITALS: BP 126/60; PULSE 84; RESP 20; TEMP 36.3; O2SAT 95
[2023-03-22 23:06] VITALS: RESP 18
[2023-03-22] MEDS: Docusate Sodium 100 MG CAPSULE PO (23:06)
[2023-03-23] VITALS (7 sets, daily range): BP systolic 150–168; BP diastolic 74–79; PULSE 68–80; RESP 16–20; TEMP 36.2–36.7; O2SAT 96–98
[2023-03-23] MEDS: Morphine Sulfate 2 MG/ML CARTRIDGE IVPUSH ×4 (04:49→21:04)
[2023-03-23 07:15] LABS: Hematocrit 28.3 % (37.0-47.0); Hemoglobin 9.3 g/dl (12.0-16.0); Mean Corpuscular HGB Conc 32.9 g/dl (31.0-35.0); Mean Corpuscular Hemoglobin 30.6 pg (27.0-33.0); Mean Corpuscular Volume 93.1 fL (80.0-98.0); Mean Platelet Volume 9.4 fL (9.4-12.3); Platelet Count 135 X10*3/uL (160-400); Red Blood Count 3.04 X10*6/uL (4.20-5.50); Red Cell Distribution Width 15.1 % (11.0-16.0)
[2023-03-23 07:20] LABS: White Blood Count 2.4 X10*3/uL (4.8-10.8)
[2023-03-23 07:34] LABS: Anion Gap 11 (12-20); Blood Urea Nitrogen 14 mg/dL (9-16); Calcium 8.2 mg/dL (8.4-10.2); Carbon Dioxide 21 mmol/L (22-29); Chloride 100 mmol/L (96-108); Creatinine Clr Calc Pharmacy 71.3; Estimated Glomerular Filt Rate > 60; Glucose Fasting 119 mg/dL (60-99); Sodium 128 mmol/L (135-145)
--- NOTE | 2023-03-23 10:43 | P.PNIM_ITS ---
Subjective Subjective Date of Service: 03/23/23 Interval History: cough Physical Exam 2 Vital Signs: Vital Signs: Last Vital Signs Temp 97.7 F 03/23/23 08:00 Pulse 74 03/23/23 10:25 Resp 20 03/23/23 08:00 BP 160/74 H 03/23/23 10:25 Pulse Ox 98 03/23/23 10:25 O2 Del Method Nasal Cannula 03/23/23 08:00 O2 Flow Rate 2 03/23/23 08:00 BMI result Body Mass Index 19.0 General: AO X 3, no acute distress Resp: CTA bilateral, no accessory muscles used CVS: S1,S2,RRR GI: soft, non tender, non distended Neuro: motor grossly intact, alert Psych: appropriate affect, appropriate insight Objective Data Active Medications Acetaminophen (Acetaminophen 325 Mg Tablet) 650 mg PO Q6H PRN PRN Reason: Pain, Mild (Pain Scale 1-3) Carvedilol (Carvedilol 25 Mg Tablet) 25 mg PO BID [facility]; Protocol Last Admin: 03/22/23 19:55 Dose: 25 mg Documented By: RODRÍGUEZ Dexamethasone Sodium Phosphate (Dexamethasone Sod Phosphate 4 Mg/Ml Vial) 6 mg IVPUSH DAILY [facility] Last Admin: 03/22/23 11:32 Dose: 6 mg Documented By: BAIRON Docusate Sodium (Docusate Sodium 100 Mg Capsule) 100 mg PO DAILY PRN PRN Reason: Constipation Last Admin: 03/22/23 23:06 Dose: 100 mg Documented By: RODRÍGUEZ Enoxaparin Sodium (Enoxaparin Sodium 40 Mg/0.4 Ml Syringe) 40 mg SUBCUT Q24H [facility] Last Admin: 03/22/23 17:01 Dose: 40 mg Documented By: BAIRON Folic Acid (Folic Acid 1 Mg Tablet) 1 mg PO DAILY [facility] Last Admin: 03/22/23 07:50 Dose: 1 mg Documented By: COTCARLOS Gabapentin (Gabapentin 100 Mg Capsule) 100 mg PO TID [facility] Last Admin: 03/22/23 19:55 Dose: 100 mg Documented By: RODRÍGUEZ Guaifenesin/Dextromethorphan (Guaifenesin Dm 600/30 1 Tab Tab.Er.12h) 1 tab PO BID [facility] Last Admin: 03/22/23 19:55 Dose: 1 tab Documented By: RODRÍGUEZ Hydralazine HCl (Hydralazine Hcl 25 Mg Tablet) 25 mg PO TID [facility]; Protocol Last Admin: 03/22/23 19:55 Dose: 25 mg Documented By: RODRÍGUEZ Ceftriaxone Sodium 1 gm/ (Sodium Chloride) 50 mls @ 100 mls/hr IV Q24H [facility] Last Infusion: 03/22/23 18:15 Dose: Infused Documented By: BAIRON Remdesivir 100 mg/ Sodium (Chloride) 230 mls @ 115 mls/hr IV Q24H [facility] Stop: 03/24/23 13:29 Isosorbide Mononitrate (Isosorbide Mononitrate 30 Mg Tab.Er.24h) 30 mg PO DAILY [facility]; Protocol Last Admin: 03/22/23 07:50 Dose: 30 mg Documented By: COTEMA Morphine Sulfate (Morphine Sulfate 2 Mg/Ml Cartridge) 2 mg IVPUSH Q4H PRN; Protocol PRN Reason: Pain, Severe (Pain Scale 7-10) Last Admin: 03/23/23 04:49 Dose: 2 mg Documented By: RODRÍGUEZ Ondansetron HCl (Ondansetron Hcl 4 Mg/2 Ml Vial) 4 mg IVPUSH Q8H PRN PRN Reason: Nausea and Vomiting Sodium Chloride (0.9 % Sodium Chloride Flush 3 Ml Syringe) 3 ml IVFLUSH QSHIFT [facility] Last Admin: 03/22/23 19:55 Dose: 3 ml Documented By: RODRÍGUEZ Labs 03/23/23 06:33 03/23/23 06:33 Labs: Laboratory Results - last 24 hr 03/19/23 03/20/23 03/23/23 21:39 06:26 06:33 MCV 93.1 MCH 30.6 MCHC 32.9 RDW 15.1 Plt Count 135 L MPV 9.4 Absolute Nucleated RBC 0.000 Nucleated RBC % (auto) 0.0 Anion Gap 11 L Estim Creat Clear Calc 71.3 Estimated GFR > 60 Fasting Glucose 119 H Calcium 8.2 L Alpha Fetoprotein 2.0 CA 15-3 Antigen 64 H CA 19-9 Antigen 768 H Microbiology Microbiology Results: Microbiology 03/19/23 Unknown Urine Culture - Final Urine Catheterized - Straight Catheter Escherichia coli Assessment and Plan (1) Unintentional weight loss: Status: Acute Plan 67F PMH nonischemic cardiomyopathy s/p aicd, cereberal anuerysm s/p clipping and coiling, gout, htn, crohns, former smoker, presented with ams found to have UTI, L1 fracture, hyponatremia, during hospitalization developed cough, tachycardia, found to be covid positive Acute hypoxic respiratory failure secondary to COVID-19 Remdesivir, dexamethasone day 2 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 Sodium improved at acceptable rate, now back down to 128, will add salt tablets, continue fluid restricftion, monitor Continue fluid restriction IV ceftriaxone day 4 Mentation back to baseline tachypnea mucinex, incentive spirometry recheck covid Acute L1 fracture Pain control, physical therapy Unintentional weight loss Age and risk factor appropriate cancer screening pending Stage II decubitus ulcer of the sacrum, stage I decubitus ulcer of bilateral buttocks Repositioning Crohn's disease Stable Nonischemic cardiomyopathy, hypertension Continue carvedilol, hydralazine, Imdur DVT prophylaxis with Lovenox Full code reason for continued hospitalization:hyponatremia, rehab placement for covid positive Time Spent With Patient Time: Total time managing care of this patient today ____ minutes. Quality Stroke Does the patient have a stroke diagnosis?: No VTE Prior VTE?: No VTE Risk Level:: Medical - moderate - high VTE Device Contraindication: Treatment Not Indicated VTE Drug Contraindication: N/A - Med Ordered
[2023-03-23] MEDS: hydrALAZINE HCl 25 MG TABLET PO ×3 (10:56→20:46)
[2023-03-23] MEDS: Folic Acid 1 MG TABLET PO (10:56)
[2023-03-23] MEDS: guaiFENesin DM 600/30 1 TAB TAB.ER.12H PO ×2 (10:56→20:45)
[2023-03-23] MEDS: Isosorbide Mononitrate 30 MG TAB.ER.24H PO (10:56)
[2023-03-23] MEDS: Gabapentin 100 MG CAPSULE PO ×3 (10:56→20:47)
[2023-03-23] MEDS: 0.9 % Sodium Chloride Flush 3 ML SYRINGE IVFLUSH ×2 (10:57→16:48)
[2023-03-23] MEDS: carvediloL 25 MG TABLET PO ×2 (11:00→20:46)
--- NOTE | 2023-03-23 11:02 | MHC.CLN ---
F/U DIET=REGULAR, 1500 ML FLUID RESTRICTION. SKIN WITH STAGE II TO COCCYX AND STAGE I TO BILATERAL BUTTOCKS. ENSURE MAX BID PROVIDES 300 KCALS, 60 G PROTEIN, 600 ML FREE WATER. SUPPLEMENT TO PROMOTE WOUND HEALING. WEIGHT LOSS -14.6% X ONE YEAR. INTAKE VARIABLE 50-100%. CONTINUE CURRENT DIET AND SUPPLEMENT. FOLLOW FOR INTAKE, WOUND HEALING AND LABS.
[2023-03-23] MEDS: Remdesivir 100 MG in 0.9 % Sodium Chloride 230 ML 115 MG IV (12:44)
--- NOTE | 2023-03-23 15:28 | MHC.CM.PN ---
EMR reviewed and per MD rounds, pt is not medically cleared for D/C due to hyponatremia, and +covid-19 infection. CM will continue to follow.
[2023-03-23] MEDS: Enoxaparin Sodium 40 MG/0.4 ML SYRINGE SUBCUT (16:48)
[2023-03-23] MEDS: cefTRIAXone sodium 1 GM in 0.9 % Sodium Chloride 50 ML IV (16:49)
[2023-03-23] MEDS: Sodium Chloride Tab 1 GM TABLET PO (20:46)
[2023-03-24] MEDS: Morphine Sulfate 2 MG/ML CARTRIDGE IVPUSH ×3 (02:52→13:54)
[2023-03-24] MEDS: 0.9 % Sodium Chloride Flush 3 ML SYRINGE IVFLUSH ×3 (02:54→15:13)
[2023-03-24 03:18] VITALS: BP 161/81; PULSE 62; RESP 17; TEMP 36.4; O2SAT 97
[2023-03-24 06:32] LABS: Hematocrit 31.5 % (37.0-47.0); Hemoglobin 10.4 g/dl (12.0-16.0); Mean Corpuscular Hemoglobin 30.5 pg (27.0-33.0); Mean Corpuscular Volume 92.4 fL (80.0-98.0); Mean Platelet Volume 9.3 fL (9.4-12.3); Platelet Count 180 X10*3/uL (160-400); Red Blood Count 3.41 X10*6/uL (4.20-5.50); Red Cell Distribution Width 14.6 % (11.0-16.0); White Blood Count 4.6 X10*3/uL (4.8-10.8)
[2023-03-24 06:43] LABS: Anion Gap 12 (12-20); Blood Urea Nitrogen 20 mg/dL (9-16); Calcium 8.6 mg/dL (8.4-10.2); Carbon Dioxide 24 mmol/L (22-29); Chloride 99 mmol/L (96-108); Creatinine Clr Calc Pharmacy 68.9; Estimated Glomerular Filt Rate > 60; Glucose Fasting 104 mg/dL (60-99); Potassium 4.6 mmol/L (3.3-5.1); Sodium 130 mmol/L (135-145)
[2023-03-24 07:37] VITALS: BP 170/81; PULSE 72; RESP 17; TEMP 36.3; O2SAT 97
[2023-03-24] MEDS: Folic Acid 1 MG TABLET PO (08:55)
[2023-03-24] MEDS: Gabapentin 100 MG CAPSULE PO ×3 (08:55→20:58)
[2023-03-24] MEDS: carvediloL 25 MG TABLET PO ×2 (08:55→20:58)
[2023-03-24] MEDS: Isosorbide Mononitrate 30 MG TAB.ER.24H PO (08:55)
[2023-03-24] MEDS: Sodium Chloride Tab 1 GM TABLET PO ×2 (08:55→20:56)
[2023-03-24] MEDS: guaiFENesin DM 600/30 1 TAB TAB.ER.12H PO ×2 (08:55→20:58)
[2023-03-24] MEDS: dexAMETHasone sod phosphate 4 MG/ML VIAL 6 MG IVPUSH (08:56)
[2023-03-24] MEDS: hydrALAZINE HCl 25 MG TABLET PO (08:56)
[2023-03-24] MEDS: Remdesivir 100 MG in 0.9 % Sodium Chloride 230 ML 115 MG IV (11:44)
--- NOTE | 2023-03-24 11:44 | P.PNIM_ITS ---
Subjective Subjective Date of Service: 03/24/23 Interval History: Seen and evaluated Feels better overall still on O2 supplement Tolerating diet well Review of Systems Review of Systems: Yes all other systems are reviewed and are negative Physical Exam 2 Vital Signs: Vital Signs: Last Vital Signs Temp 97.3 F 03/24/23 07:37 Pulse 72 03/24/23 07:37 Resp 17 03/24/23 07:37 BP 170/81 H 03/24/23 07:37 Pulse Ox 97 03/24/23 07:37 O2 Del Method Nasal Cannula 03/24/23 07:37 O2 Flow Rate 2 03/24/23 07:37 BMI result Body Mass Index 19.0 Const: Other: Constitutional : Awake, interactive, not in distress Neck : Normal inspection, Supple Cardiovascular : RRR, no JVP, no lower extremity edema Respiratory : good bilateral air entry, no crackles, wheezes or rhonchi Gastrointestinal: soft, lax, Normal bowel sounds, Non tender Skin : Warm, Dry Neurological : Alert & oriented x3, No focal deficit Objective Data Active Medications Acetaminophen (Acetaminophen 325 Mg Tablet) 650 mg PO Q6H PRN PRN Reason: Pain, Mild (Pain Scale 1-3) Carvedilol (Carvedilol 25 Mg Tablet) 25 mg PO BID [facility]; Protocol Last Admin: 03/24/23 08:55 Dose: 25 mg Documented By: YANIRA Dexamethasone Sodium Phosphate (Dexamethasone Sod Phosphate 4 Mg/Ml Vial) 6 mg IVPUSH DAILY [facility] Last Admin: 03/24/23 08:56 Dose: 6 mg Documented By: YANIRA Docusate Sodium (Docusate Sodium 100 Mg Capsule) 100 mg PO DAILY PRN PRN Reason: Constipation Last Admin: 03/22/23 23:06 Dose: 100 mg Documented By: RODRÍGUEZ Enoxaparin Sodium (Enoxaparin Sodium 40 Mg/0.4 Ml Syringe) 40 mg SUBCUT Q24H [facility] Last Admin: 03/23/23 16:48 Dose: 40 mg Documented By: BAIRON Folic Acid (Folic Acid 1 Mg Tablet) 1 mg PO DAILY [facility] Last Admin: 03/24/23 08:55 Dose: 1 mg Documented By: YANIRA Gabapentin (Gabapentin 100 Mg Capsule) 100 mg PO TID [facility] Last Admin: 03/24/23 08:55 Dose: 100 mg Documented By: YANIRA Guaifenesin/Dextromethorphan (Guaifenesin Dm 600/30 1 Tab Tab.Er.12h) 1 tab PO BID [facility] Last Admin: 03/24/23 08:55 Dose: 1 tab Documented By: YANIRA Hydralazine HCl (Hydralazine Hcl 25 Mg Tablet) 25 mg PO TID [facility]; Protocol Last Admin: 03/24/23 08:56 Dose: 25 mg Documented By: YANIRA Ceftriaxone Sodium 1 gm/ (Sodium Chloride) 50 mls @ 100 mls/hr IV Q24H [facility] Last Infusion: 03/23/23 17:39 Dose: Infused Documented By: BAIRON Remdesivir 100 mg/ Sodium (Chloride) 230 mls @ 115 mls/hr IV Q24H [facility] Stop: 03/24/23 13:29 Last Infusion: 03/23/23 14:49 Dose: Infused Documented By: BAIRON Isosorbide Mononitrate (Isosorbide Mononitrate 30 Mg Tab.Er.24h) 30 mg PO DAILY [facility]; Protocol Last Admin: 03/24/23 08:55 Dose: 30 mg Documented By: YANIRA Morphine Sulfate (Morphine Sulfate 2 Mg/Ml Cartridge) 2 mg IVPUSH Q4H PRN; Protocol PRN Reason: Pain, Severe (Pain Scale 7-10) Last Admin: 03/24/23 08:56 Dose: 2 mg Documented By: YANIRA Ondansetron HCl (Ondansetron Hcl 4 Mg/2 Ml Vial) 4 mg IVPUSH Q8H PRN PRN Reason: Nausea and Vomiting Sodium Chloride (0.9 % Sodium Chloride Flush 3 Ml Syringe) [facility] Last Admin: 03/24/23 09:00 Dose: 3 ml Documented By: YANIRA Sodium Chloride (Sodium Chloride Tab 1 Gm Tablet) 1 gm PO BID [facility] Last Admin: 03/24/23 08:55 Dose: 1 gm Documented By: YANIRA Labs 03/24/23 06:19 03/24/23 06:19 Labs: Laboratory Results - last 24 hr 03/23/23 03/24/23 06:33 06:19 MCV 92.4 MCH 30.5 MCHC 33.0 RDW 14.6 Plt Count 180 D MPV 9.3 L Absolute Nucleated RBC 0.000 Nucleated RBC % (auto) 0.0 Smear Path Review SEE NOTE Anion Gap 12 Estim Creat Clear Calc 68.9 Estimated GFR > 60 Fasting Glucose 104 H Calcium 8.6 Assessment and Plan (1) Urinary tract infection: Status: Acute (2) Psychogenic polydipsia: Status: Acute (3) Acute dehydration: Status: Acute (4) Acute hyponatremia: Status: Acute (5) COVID-19 virus infection: Status: Acute (6) Acute respiratory failure with hypoxia: Status: Acute Plan 67F PMH nonischemic cardiomyopathy s/p aicd, cereberal anuerysm s/p clipping and coiling, gout, htn, crohns, former smoker, presented with ams found to have UTI, L1 fracture, hyponatremia, during hospitalization developed cough, tachycardia, found to be covid positive Acute hypoxic respiratory failure secondary to COVID-19 Remdesivir, dexamethasone day 3 mucinex, incentive spirometry wean down O2 as tolerated Acute metabolic encephalopathy resolving Due to hyponatremia and urinary tract infection 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 with poor solute intake Sodium improved at acceptable rate, improved to 130 add salt tablets Continue fluid restriction IV ceftriaxone day 5 Mentation back to baseline Acute L1 fracture Pain control, physical therapy Unintentional weight loss Age and risk factor appropriate cancer screening pending Stage II decubitus ulcer of the sacrum, stage I decubitus ulcer of bilateral buttocks Repositioning Crohn's disease Stable Nonischemic cardiomyopathy, hypertension Continue carvedilol, hydralazine, Imdur DVT prophylaxis with Lovenox Full code reason for continued hospitalization:hyponatremia, rehab placement for covid positive Time Spent With Patient Time: Total time managing care of this patient today ____ minutes. Quality Stroke Does the patient have a stroke diagnosis?: No VTE Prior VTE?: No VTE Risk Level:: Medical - moderate - high VTE Device Contraindication: Treatment Not Indicated VTE Drug Contraindication: N/A - Med Ordered
[2023-03-24] MEDS: hydrALAZINE HCl 50 MG TABLET PO ×2 (15:12→20:57)
[2023-03-24] MEDS: cefTRIAXone sodium 1 GM in 0.9 % Sodium Chloride 50 ML IV (15:13)
[2023-03-24 15:48] VITALS: BP 172/79; PULSE 72; RESP 19; TEMP 37; O2SAT 95
[2023-03-24] MEDS: Enoxaparin Sodium 40 MG/0.4 ML SYRINGE SUBCUT (17:02)
[2023-03-24 20:00] VITALS: BP 149/82; PULSE 62; RESP 18; TEMP 36.8; O2SAT 98
[2023-03-24] MEDS: Morphine Sulfate 4 MG/ML CARTRIDGE 3 MG IVPUSH (20:58)
[2023-03-24] MEDS: Lidocaine 4 % Patch ADH..PATCH 1 PATCH TRANSDERMA (20:59)
[2023-03-25 00:37] VITALS: BP 148/70; PULSE 60; RESP 15; TEMP 36.3; O2SAT 98
[2023-03-25] MEDS: 0.9 % Sodium Chloride Flush 3 ML SYRINGE IVFLUSH ×4 (02:33→20:23)
[2023-03-25 04:10] VITALS: BP 176/82
[2023-03-25] MEDS: Morphine Sulfate 4 MG/ML CARTRIDGE 3 MG IVPUSH (04:14)
[2023-03-25 06:12] LABS: Hematocrit 32.9 % (37.0-47.0); Hemoglobin 10.7 g/dl (12.0-16.0); Mean Corpuscular HGB Conc 32.5 g/dl (31.0-35.0); Mean Corpuscular Hemoglobin 30.1 pg (27.0-33.0); Mean Corpuscular Volume 92.4 fL (80.0-98.0); Mean Platelet Volume 9.4 fL (9.4-12.3); Platelet Count 205 X10*3/uL (160-400); Red Blood Count 3.56 X10*6/uL (4.20-5.50); Red Cell Distribution Width 14.4 % (11.0-16.0); White Blood Count 5.1 X10*3/uL (4.8-10.8)
[2023-03-25 06:36] LABS: Anion Gap 13 (12-20); Blood Urea Nitrogen 25 mg/dL (9-16); Calcium 8.3 mg/dL (8.4-10.2); Carbon Dioxide 22 mmol/L (22-29); Chloride 98 mmol/L (96-108); Creatinine Clr Calc Pharmacy 75.2; Estimated Glomerular Filt Rate > 60; Glucose Random 99 mg/dL (60-115); Potassium 4.7 mmol/L (3.3-5.1); Sodium 128 mmol/L (135-145)
[2023-03-25 07:55] VITALS: BP 134/78; PULSE 75; RESP 16; TEMP 36.1; O2SAT 98
[2023-03-25] MEDS: Sodium Chloride Tab 1 GM TABLET PO ×2 (08:58→20:23)
[2023-03-25] MEDS: Morphine Sulfate 4 MG/ML CARTRIDGE 2 MG IVPUSH (08:58)
[2023-03-25] MEDS: Gabapentin 100 MG CAPSULE PO ×3 (08:58→20:23)
[2023-03-25] MEDS: Isosorbide Mononitrate 60 MG TAB.ER.24H PO (08:58)
[2023-03-25] MEDS: guaiFENesin DM 600/30 1 TAB TAB.ER.12H PO ×2 (08:59→20:23)
[2023-03-25] MEDS: dexAMETHasone sod phosphate 4 MG/ML VIAL 6 MG IVPUSH (08:59)
[2023-03-25] MEDS: carvediloL 25 MG TABLET PO ×2 (08:59→20:23)
[2023-03-25] MEDS: Folic Acid 1 MG TABLET PO (08:59)
[2023-03-25] MEDS: hydrALAZINE HCl 50 MG TABLET PO ×3 (08:59→20:23)
[2023-03-25] MEDS: Acetaminophen 325 MG TABLET 975 MG PO ×3 (10:38→20:23)
--- NOTE | 2023-03-25 11:46 | HO.PM.IMPN ---
Subjective Subjective Date of Service: 03/25/23 Interval History: Seen and evaluated Feels better overall with less SOB having back pain still on O2 supplement Tolerating diet well Review of Systems Review of Systems: Yes all other systems are reviewed and are negative Physical Exam Vital Signs: Vital Signs: Last Vital Signs Temp 96.9 F 03/25/23 07:55 Pulse 75 03/25/23 07:55 Resp 16 03/25/23 07:55 BP 134/78 03/25/23 07:55 Pulse Ox 98 03/25/23 07:55 O2 Del Method Nasal Cannula 03/25/23 07:55 O2 Flow Rate 2 03/25/23 07:55 BMI result Body Mass Index 19.0 Const: Other: Constitutional : Awake, interactive, not in distress Neck : Normal inspection, Supple Cardiovascular : RRR, no JVP, no lower extremity edema Respiratory : good bilateral air entry, no crackles, wheezes or rhonchi Gastrointestinal: soft, lax, Normal bowel sounds, Non tender Skin : Warm, Dry Neurological : Alert & oriented x3, No focal deficit Objective Data Active Medications Acetaminophen (Acetaminophen 325 Mg Tablet) 975 mg PO TID [facility] Last Admin: 03/25/23 10:38 Dose: 975 mg Documented By: YANIRA Carvedilol (Carvedilol 25 Mg Tablet) 25 mg PO BID [facility]; Protocol Last Admin: 03/25/23 08:59 Dose: 25 mg Documented By: YANIRA Dexamethasone Sodium Phosphate (Dexamethasone Sod Phosphate 4 Mg/Ml Vial) 6 mg IVPUSH DAILY [facility] Last Admin: 03/25/23 08:59 Dose: 6 mg Documented By: YANIRA Docusate Sodium (Docusate Sodium 100 Mg Capsule) 100 mg PO DAILY PRN PRN Reason: Constipation Last Admin: 03/22/23 23:06 Dose: 100 mg Documented By: RODRÍGUEZ Enoxaparin Sodium (Enoxaparin Sodium 40 Mg/0.4 Ml Syringe) 40 mg SUBCUT Q24H [facility] Last Admin: 03/24/23 17:02 Dose: 40 mg Documented By: YANIRA Folic Acid (Folic Acid 1 Mg Tablet) 1 mg PO DAILY [facility] Last Admin: 03/25/23 08:59 Dose: 1 mg Documented By: YANIRA Gabapentin (Gabapentin 100 Mg Capsule) 100 mg PO TID [facility] Last Admin: 03/25/23 08:58 Dose: 100 mg Documented By: YANIRA Guaifenesin/Dextromethorphan (Guaifenesin Dm 600/30 1 Tab Tab.Er.12h) 1 tab PO BID [facility] Last Admin: 03/25/23 08:59 Dose: 1 tab Documented By: YANIRA Hydralazine HCl (Hydralazine Hcl 50 Mg Tablet) 50 mg PO TID [facility]; Protocol Last Admin: 03/25/23 08:59 Dose: 50 mg Documented By: YANIRA Ceftriaxone Sodium 1 gm/ (Sodium Chloride) 50 mls @ 100 mls/hr IV Q24H [facility] Last Infusion: 03/24/23 15:51 Dose: Infused Documented By: YANIRA Isosorbide Mononitrate (Isosorbide Mononitrate 60 Mg Tab.Er.24h) 60 mg PO DAILY [facility]; Protocol Last Admin: 03/25/23 08:58 Dose: 60 mg Documented By: YANIRA Ondansetron HCl (Ondansetron Hcl 4 Mg/2 Ml Vial) 4 mg IVPUSH Q8H PRN PRN Reason: Nausea and Vomiting Oxycodone HCl (Oxycodone Hcl Immed Release 5 Mg Tablet) 2.5 mg PO Q6H PRN PRN Reason: Pain, Severe (Pain Scale 7-10) Sodium Chloride (0.9 % Sodium Chloride Flush 3 Ml Syringe) 3 ml IVFLUSH QSHIFT [facility] Last Admin: 03/25/23 08:57 Dose: 3 ml Documented By: YANIRA Sodium Chloride (Sodium Chloride Tab 1 Gm Tablet) 1 gm PO BID [facility] Last Admin: 03/25/23 08:58 Dose: 1 gm Documented By: YANIRA Labs 03/25/23 06:03 03/25/23 06:03 Labs: Laboratory Results - last 24 hr 03/25/23 06:03 MCV 92.4 MCH 30.1 MCHC 32.5 RDW 14.4 Plt Count 205 MPV 9.4 Absolute Nucleated RBC 0.000 Nucleated RBC % (auto) 0.0 Anion Gap 13 Estim Creat Clear Calc 75.2 Estimated GFR > 60 Random Glucose 99 Calcium 8.3 L Microbiology Microbiology Results: Microbiology 03/19/23 10:38 Blood Culture - Final Blood - Venous No growth after 5 days. 03/19/23 10:38 Blood Culture - Final Blood - Venous No growth after 5 days. Assessment and Plan (1) COVID-19 virus infection: Status: Acute (2) Acute respiratory failure with hypoxia: Status: Acute (3) Psychogenic polydipsia: Status: Acute (4) Urinary tract infection: Status: Acute (5) Acute hyponatremia: Status: Acute Plan 67F PMH nonischemic cardiomyopathy s/p aicd, cereberal anuerysm s/p clipping and coiling, gout, htn, crohns, former smoker, presented with ams found to have UTI, L1 fracture, hyponatremia, during hospitalization developed cough, tachycardia, found to be covid positive Acute hypoxic respiratory failure secondary to COVID-19 Remdesivir, dexamethasone day 4 mucinex, incentive spirometry wean down O2 as tolerated Acute metabolic encephalopathy Due to hyponatremia and urinary tract infection resolved hyponatremia 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 with poor solute intake Sodium improved at acceptable rate, improved to 128, keeps fluctuating add salt tablets Continue fluid restriction follow BMP urinary tract infection DC IV ceftriaxone after 5 days Acute L1 fracture Pain control, physical therapy Unintentional weight loss Age and risk factor appropriate cancer screening pending Stage II decubitus ulcer of the sacrum, stage I decubitus ulcer of bilateral buttocks Repositioning Crohn's disease Stable Nonischemic cardiomyopathy, hypertension Continue carvedilol, hydralazine, Imdur DVT prophylaxis with Lovenox Full code reason for continued hospitalization:hyponatremia, rehab placement for covid positive Time Spent With Patient Time: Total time managing care of this patient today ____ minutes. Quality Stroke Does the patient have a stroke diagnosis?: No VTE Prior VTE?: No VTE Risk Level:: Medical - moderate - high VTE Device Contraindication: Treatment Not Indicated VTE Drug Contraindication: N/A - Med Ordered
[2023-03-25] MEDS: oxyCODONE HCl Immed Release 5 MG TABLET 2.5 MG PO ×2 (13:36→20:27)
[2023-03-25] MEDS: Urea 15 GM POWDER PO (13:37)
[2023-03-25 15:04] LABS: Anion Gap 12 (12-20); Blood Urea Nitrogen 56 mg/dL (9-16); Calcium 8.1 mg/dL (8.4-10.2); Carbon Dioxide 21 mmol/L (22-29); Chloride 97 mmol/L (96-108); Creatinine Clr Calc Pharmacy 70.1; Estimated Glomerular Filt Rate > 60; Glucose Random 126 mg/dL (60-115); Potassium 4.9 mmol/L (3.3-5.1); Sodium 125 mmol/L (135-145)
[2023-03-25 15:30] VITALS: BP 168/81; PULSE 77; RESP 19; TEMP 36.2; O2SAT 97
[2023-03-25] MEDS: Enoxaparin Sodium 40 MG/0.4 ML SYRINGE SUBCUT (17:00)
[2023-03-25 23:19] VITALS: BP 131/67; PULSE 62; RESP 22; TEMP 36.4; O2SAT 97
[2023-03-26] MEDS: oxyCODONE HCl Immed Release 5 MG TABLET 2.5 MG PO ×2 (02:55→10:36)
[2023-03-26 07:33] LABS: Anion Gap 12 (12-20); Blood Urea Nitrogen 45 mg/dL (9-16); Calcium 8.4 mg/dL (8.4-10.2); Carbon Dioxide 22 mmol/L (22-29); Chloride 97 mmol/L (96-108); Creatinine Clr Calc Pharmacy 61.7; Estimated Glomerular Filt Rate > 60; Glucose Random 104 mg/dL (60-115); Potassium 4.2 mmol/L (3.3-5.1); Sodium 127 mmol/L (135-145)
[2023-03-26 07:43] VITALS: BP 183/82; PULSE 69; RESP 20; TEMP 36.6; O2SAT 97
--- NOTE | 2023-03-26 09:40 | HO.PM.IMPN ---
Subjective Subjective Date of Service: 03/26/23 Interval History: feeling stronger Physical Exam Vital Signs: Vital Signs: Last Vital Signs Temp 97.9 F 03/26/23 07:43 Pulse 69 03/26/23 07:43 Resp 20 03/26/23 07:43 BP 183/82 H 03/26/23 07:43 Pulse Ox 97 03/26/23 07:43 O2 Del Method Nasal Cannula 03/26/23 07:43 O2 Flow Rate 2 03/26/23 07:43 BMI result Body Mass Index 19.0 Const: Other: Constitutional : Awake, interactive, not in distress Neck : Normal inspection, Supple Cardiovascular : RRR, no JVP, no lower extremity edema Respiratory : good bilateral air entry, no crackles, wheezes or rhonchi Gastrointestinal: soft, lax, Normal bowel sounds, Non tender Skin : Warm, Dry Neurological : Alert & oriented x3, No focal deficit Objective Data Active Medications Acetaminophen (Acetaminophen 325 Mg Tablet) 975 mg PO TID [facility] Last Admin: 03/25/23 20:23 Dose: 975 mg Documented By: AEVLINA Carvedilol (Carvedilol 25 Mg Tablet) 25 mg PO BID [facility]; Protocol Last Admin: 03/25/23 20:23 Dose: 25 mg Documented By: AVELINA Dexamethasone Sodium Phosphate (Dexamethasone Sod Phosphate 4 Mg/Ml Vial) 6 mg IVPUSH DAILY [facility] Last Admin: 03/25/23 08:59 Dose: 6 mg Documented By: YANIRA Docusate Sodium (Docusate Sodium 100 Mg Capsule) 100 mg PO DAILY PRN PRN Reason: Constipation Last Admin: 03/22/23 23:06 Dose: 100 mg Documented By: RODRÍGUEZ Enoxaparin Sodium (Enoxaparin Sodium 40 Mg/0.4 Ml Syringe) 40 mg SUBCUT Q24H [facility] Last Admin: 03/25/23 17:00 Dose: 40 mg Documented By: YANIRA Folic Acid (Folic Acid 1 Mg Tablet) 1 mg PO DAILY [facility] Last Admin: 03/25/23 08:59 Dose: 1 mg Documented By: YANIRA Gabapentin (Gabapentin 100 Mg Capsule) 100 mg PO TID [facility] Last Admin: 03/25/23 20:23 Dose: 100 mg Documented By: AVELINA Guaifenesin/Dextromethorphan (Guaifenesin Dm 600/30 1 Tab Tab.Er.12h) 1 tab PO BID [facility] Last Admin: 03/25/23 20:23 Dose: 1 tab Documented By: AVELINA Hydralazine HCl (Hydralazine Hcl 50 Mg Tablet) 50 mg PO TID [facility]; Protocol Last Admin: 03/25/23 20:23 Dose: 50 mg Documented By: AVELINA Isosorbide Mononitrate (Isosorbide Mononitrate 60 Mg Tab.Er.24h) 60 mg PO DAILY [facility]; Protocol Last Admin: 03/25/23 08:58 Dose: 60 mg Documented By: YANIRA Ondansetron HCl (Ondansetron Hcl 4 Mg/2 Ml Vial) 4 mg IVPUSH Q8H PRN PRN Reason: Nausea and Vomiting Oxycodone HCl (Oxycodone Hcl Immed Release 5 Mg Tablet) 2.5 mg PO Q6H PRN PRN Reason: Pain, Severe (Pain Scale 7-10) Last Admin: 03/26/23 02:55 Dose: 2.5 mg Documented By: AVELINA Sodium Chloride (0.9 % Sodium Chloride Flush 3 Ml Syringe) 3 ml IVFLUSH QSHIFT [facility] Last Admin: 03/25/23 20:23 Dose: 3 ml Documented By: AVELINA Sodium Chloride (Sodium Chloride Tab 1 Gm Tablet) 1 gm PO BID [facility] Last Admin: 03/25/23 20:23 Dose: 1 gm Documented By: AVELINA Labs 03/25/23 06:03 03/26/23 06:29 Labs: Laboratory Results - last 24 hr 03/25/23 03/26/23 14:25 06:29 Anion Gap 12 12 Estim Creat Clear Calc 70.1 61.7 Estimated GFR > 60 > 60 Random Glucose 126 H 104 Calcium 8.1 L 8.4 Assessment and Plan (1) COVID-19 virus infection: Status: Acute (2) Acute respiratory failure with hypoxia: Status: Acute (3) Psychogenic polydipsia: Status: Acute (4) Urinary tract infection: Status: Acute (5) Acute hyponatremia: Status: Acute Plan 67F PMH nonischemic cardiomyopathy s/p aicd, cereberal anuerysm s/p clipping and coiling, gout, htn, crohns, former smoker, presented with ams found to have UTI, L1 fracture, hyponatremia, during hospitalization developed cough, tachycardia, found to be covid positive Acute hypoxic respiratory failure secondary to COVID-19 Remdesivir completed, dexamethasone day 5 mucinex, incentive spirometry wean down O2 as tolerated Acute metabolic encephalopathy Due to hyponatremia and urinary tract infection resolved hyponatremia 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 with poor solute intake Sodium improved at acceptable rate, improved to 128, keeps fluctuating added salt tablets Continue fluid restriction follow BMP urinary tract infection completed ceftriaxone Acute L1 fracture Pain control, physical therapy Unintentional weight loss Age and risk factor appropriate cancer screening pending Stage II decubitus ulcer of the sacrum, stage I decubitus ulcer of bilateral buttocks Repositioning Crohn's disease Stable Nonischemic cardiomyopathy, hypertension Continue carvedilol, hydralazine, Imdur DVT prophylaxis with Lovenox Full code reason for continued hospitalization:hyponatremia, rehab placement for covid positive Time Spent With Patient Time: Total time managing care of this patient today ____ minutes. Quality Stroke Does the patient have a stroke diagnosis?: No VTE Prior VTE?: No VTE Risk Level:: Medical - moderate - high VTE Device Contraindication: Treatment Not Indicated VTE Drug Contraindication: N/A - Med Ordered
[2023-03-26] MEDS: 0.9 % Sodium Chloride Flush 3 ML SYRINGE IVFLUSH ×3 (10:36→23:43)
[2023-03-26] MEDS: dexAMETHasone sod phosphate 4 MG/ML VIAL 6 MG IVPUSH (10:36)
[2023-03-26] MEDS: Sodium Chloride Tab 1 GM TABLET PO ×2 (10:38→21:01)
[2023-03-26] MEDS: Acetaminophen 325 MG TABLET 975 MG PO ×3 (10:38→20:59)
[2023-03-26] MEDS: hydrALAZINE HCl 50 MG TABLET PO ×3 (10:38→21:00)
[2023-03-26] MEDS: Isosorbide Mononitrate 60 MG TAB.ER.24H PO (10:39)
[2023-03-26] MEDS: guaiFENesin DM 600/30 1 TAB TAB.ER.12H PO ×2 (10:39→21:01)
[2023-03-26] MEDS: Gabapentin 100 MG CAPSULE PO ×3 (10:39→21:00)
[2023-03-26] MEDS: carvediloL 25 MG TABLET PO ×2 (10:39→21:01)
[2023-03-26] MEDS: Folic Acid 1 MG TABLET PO (10:39)
--- NOTE | 2023-03-26 10:45 | MHC.CM.PN ---
EMR REVIEWED, PER HOSPITALIST PT NO YET READY FOR D/C D/T HYPONATREMIA, PT COVID + ON 03/22, PT CAN BE RETESTED ON 03/27 VS BEING COVID RECOVERRED ON 04/02, [facility] FOLLOWING, CM WILL CONT TO FOLLOW D/C NEEDS.
--- NOTE | 2023-03-26 13:38 | MHC.CLN ---
F/U PO INTAKE 50-100% DIET RX;REGULAR, 1500 ML FLUID RESTRICTION-APPROPRIATE SKIN WITH STAGE II TO COCCYX AND STAGE I TO BILATERAL BUTTOCKS SUPPLEMENT TO PROMOTE WOUND HEALING ENSURE MAX BID PROVIDES 300 KCALS, 60 G PROTEIN, 600 ML FREE WATER CONTINUE TO MONITOR PO INTAKE AND ENCOURAGE SUPPLEMENT
[2023-03-26] MEDS: oxyCODONE HCl Immed Release 5 MG TABLET PO ×2 (15:09→22:31)
[2023-03-26 15:23] VITALS: BP 123/78; PULSE 72; RESP 20; TEMP 36.7; O2SAT 91
[2023-03-26] MEDS: Enoxaparin Sodium 40 MG/0.4 ML SYRINGE SUBCUT (17:33)
[2023-03-26 23:31] VITALS: BP 160/87; PULSE 69; RESP 18; TEMP 36.4; O2SAT 95
[2023-03-27] MEDS: oxyCODONE HCl Immed Release 5 MG TABLET PO ×3 (04:44→21:50)
[2023-03-27 07:13] LABS: Hematocrit 32.5 % (37.0-47.0); Hemoglobin 10.7 g/dl (12.0-16.0); Mean Corpuscular HGB Conc 32.9 g/dl (31.0-35.0); Mean Corpuscular Hemoglobin 30.1 pg (27.0-33.0); Mean Corpuscular Volume 91.5 fL (80.0-98.0); Platelet Count 247 X10*3/uL (160-400); Red Blood Count 3.55 X10*6/uL (4.20-5.50); Red Cell Distribution Width 14.5 % (11.0-16.0); White Blood Count 5.9 X10*3/uL (4.8-10.8)
[2023-03-27 07:29] VITALS: BP 136/79; PULSE 73; RESP 19; TEMP 36.1; O2SAT 91
[2023-03-27] MEDS: Folic Acid 1 MG TABLET PO (08:55)
[2023-03-27] MEDS: Gabapentin 100 MG CAPSULE PO ×3 (08:55→21:50)
[2023-03-27] MEDS: Isosorbide Mononitrate 60 MG TAB.ER.24H PO (08:55)
[2023-03-27] MEDS: guaiFENesin DM 600/30 1 TAB TAB.ER.12H PO ×2 (08:55→21:50)
[2023-03-27] MEDS: carvediloL 25 MG TABLET PO ×2 (08:55→21:50)
[2023-03-27] MEDS: 0.9 % Sodium Chloride Flush 3 ML SYRINGE IVFLUSH ×2 (08:56→16:37)
[2023-03-27] MEDS: dexAMETHasone sod phosphate 4 MG/ML VIAL 6 MG IVPUSH (08:56)
[2023-03-27] MEDS: hydrALAZINE HCl 50 MG TABLET PO ×3 (08:56→21:50)
[2023-03-27] MEDS: Sodium Chloride Tab 1 GM TABLET PO ×2 (08:56→21:50)
--- NOTE | 2023-03-27 09:09 | P.PNIM_ITS ---
Subjective Subjective Date of Service: 03/27/23 Interval History: feeling stronger Physical Exam 2 Vital Signs: Vital Signs: Last Vital Signs Temp 97.0 F 03/27/23 07:29 Pulse 73 03/27/23 07:29 Resp 19 03/27/23 07:29 BP 136/79 03/27/23 07:29 Pulse Ox 91 L 03/27/23 07:29 O2 Del Method Room Air 03/27/23 07:29 O2 Flow Rate 2 03/26/23 23:31 BMI result Body Mass Index 19.0 Const: Other: Constitutional : Awake, interactive, not in distress Neck : Normal inspection, Supple Cardiovascular : RRR, no JVP, no lower extremity edema Respiratory : good bilateral air entry, no crackles, wheezes or rhonchi Gastrointestinal: soft, lax, Normal bowel sounds, Non tender Skin : Warm, Dry Neurological : Alert & oriented x3, No focal deficit Objective Data Active Medications Acetaminophen (Acetaminophen 325 Mg Tablet) 975 mg PO TID [facility] Last Admin: 03/27/23 09:02 Dose: Not Given Documented By: BEN Non-Admin Reason: exceeds tylenol limit Carvedilol (Carvedilol 25 Mg Tablet) 25 mg PO BID [facility]; Protocol Last Admin: 03/27/23 08:55 Dose: 25 mg Documented By: BEN Dexamethasone Sodium Phosphate (Dexamethasone Sod Phosphate 4 Mg/Ml Vial) 6 mg IVPUSH DAILY [facility] Last Admin: 03/27/23 08:56 Dose: 6 mg Documented By: BEN Comments: Docusate Sodium (Docusate Sodium 100 Mg Capsule) 100 mg PO DAILY PRN PRN Reason: Constipation Last Admin: 03/22/23 23:06 Dose: 100 mg Documented By: RODRÍGUEZ Enoxaparin Sodium (Enoxaparin Sodium 40 Mg/0.4 Ml Syringe) 40 mg SUBCUT Q24H [facility] Last Admin: 03/26/23 17:33 Dose: 40 mg Documented By: AMOL Folic Acid (Folic Acid 1 Mg Tablet) 1 mg PO DAILY [facility] Last Admin: 03/27/23 08:55 Dose: 1 mg Documented By: BEN Gabapentin (Gabapentin 100 Mg Capsule) 100 mg PO TID [facility] Last Admin: 03/27/23 08:55 Dose: 100 mg Documented By: BEN Guaifenesin/Dextromethorphan (Guaifenesin Dm 600/30 1 Tab Tab.Er.12h) 1 tab PO BID [facility] Last Admin: 03/27/23 08:55 Dose: 1 tab Documented By: BEN Hydralazine HCl (Hydralazine Hcl 50 Mg Tablet) 50 mg PO TID [facility]; Protocol Last Admin: 03/27/23 08:56 Dose: 50 mg Documented By: BEN Isosorbide Mononitrate (Isosorbide Mononitrate 60 Mg Tab.Er.24h) 60 mg PO DAILY [facility]; Protocol Last Admin: 03/27/23 08:55 Dose: 60 mg Documented By: BEN Ondansetron HCl (Ondansetron Hcl 4 Mg/2 Ml Vial) 4 mg IVPUSH Q8H PRN PRN Reason: Nausea and Vomiting Oxycodone HCl (Oxycodone Hcl Immed Release 5 Mg Tablet) 5 mg PO Q6H PRN PRN Reason: Pain, Severe (Pain Scale 7-10) Last Admin: 03/27/23 04:44 Dose: 5 mg Documented By: HUA Sodium Chloride (0.9 % Sodium Chloride Flush 3 Ml Syringe) 3 ml IVFLUSH QSHIFT [facility] Last Admin: 03/27/23 08:56 Dose: 3 ml Documented By: BEN Sodium Chloride (Sodium Chloride Tab 1 Gm Tablet) 1 gm PO BID [facility] Last Admin: 03/27/23 08:56 Dose: 1 gm Documented By: BEN Labs 03/27/23 06:36 03/26/23 06:29 Labs: Laboratory Results - last 24 hr 03/27/23 06:36 MCV 91.5 MCH 30.1 MCHC 32.9 RDW 14.5 Plt Count 247 MPV 10.0 Absolute Nucleated RBC 0.000 Nucleated RBC % (auto) 0.0 Assessment and Plan (1) COVID-19 virus infection: Status: Acute (2) Acute respiratory failure with hypoxia: Status: Acute (3) Psychogenic polydipsia: Status: Acute (4) Urinary tract infection: Status: Acute (5) Acute hyponatremia: Status: Acute Plan 67F PMH nonischemic cardiomyopathy s/p aicd, cereberal anuerysm s/p clipping and coiling, gout, htn, crohns, former smoker, presented with ams found to have UTI, L1 fracture, hyponatremia, during hospitalization developed cough, tachycardia, found to be covid positive Acute hypoxic respiratory failure secondary to COVID-19 Remdesivir completed, dexamethasone day 6 mucinex, incentive spirometry wean down O2 as tolerated Acute metabolic encephalopathy Due to hyponatremia and urinary tract infection resolved hyponatremia 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 with poor solute intake Sodium improved at acceptable rate, improved to 128, keeps fluctuating added salt tablets Continue fluid restriction follow BMP urinary tract infection completed ceftriaxone Acute L1 fracture Pain control, physical therapy Unintentional weight loss [id number] abd and pelvis Stage II decubitus ulcer of the sacrum, stage I decubitus ulcer of bilateral buttocks Repositioning Crohn's disease Stable Nonischemic cardiomyopathy, hypertension Continue carvedilol, hydralazine, Imdur DVT prophylaxis with Lovenox Full code reason for continued hospitalization:hyponatremia, rehab placement for covid positive Time Spent With Patient Time: Total time managing care of this patient today ____ minutes. Quality Stroke Does the patient have a stroke diagnosis?: No VTE Prior VTE?: No VTE Risk Level:: Medical - moderate - high VTE Device Contraindication: Treatment Not Indicated VTE Drug Contraindication: N/A - Med Ordered
[2023-03-27 10:28] LABS: Anion Gap 10 (12-20); Blood Urea Nitrogen 31 mg/dL (9-16); Calcium 8.7 mg/dL (8.4-10.2); Carbon Dioxide 24 mmol/L (22-29); Chloride 99 mmol/L (96-108); Creatinine Clr Calc Pharmacy 67.8; Estimated Glomerular Filt Rate > 60; Glucose Fasting 86 mg/dL (60-99); Potassium 4.4 mmol/L (3.3-5.1); Sodium 129 mmol/L (135-145)
[2023-03-27] MEDS: Acetaminophen 325 MG TABLET 975 MG PO ×2 (13:55→21:51)
[2023-03-27] MEDS: Barium Sulfate Oral (Vanilla) 450 ML ORAL.SUSP 900 ML PO (14:48)
[2023-03-27] MEDS: iohexoL 350 MG/ML 100 ML INFUS..BTL IV (14:48)
[2023-03-27 14:56] VITALS: BP 172/87; PULSE 104; RESP 20; TEMP 36.7; O2SAT 93
[2023-03-27] MEDS: Enoxaparin Sodium 40 MG/0.4 ML SYRINGE SUBCUT (16:36)
[2023-03-27] MEDS: Docusate Sodium 100 MG CAPSULE PO (16:59)
[2023-03-27] MEDS: polyethylene glycoL 3350 17 GM POWD.PACK PO (16:59)
[2023-03-27] MEDS: Mineral OiL enema 133 ML ENEMA PR (18:34)
[2023-03-28] VITALS: BP 171/76; PULSE 60; RESP 20; TEMP 36.4; O2SAT 92
[2023-03-28] MEDS: 0.9 % Sodium Chloride Flush 3 ML SYRINGE IVFLUSH ×3 (00:32→15:46)
[2023-03-28] MEDS: Acetaminophen 325 MG TABLET 975 MG PO ×3 (04:11→20:54)
[2023-03-28] MEDS: oxyCODONE HCl Immed Release 5 MG TABLET PO ×4 (04:17→22:59)
[2023-03-28 07:54] VITALS: BP 163/85; PULSE 66; RESP 20; TEMP 36.4; O2SAT 92
[2023-03-28 08:17] LABS: Anion Gap 13 (12-20); Blood Urea Nitrogen 22 mg/dL (9-16); Calcium 8.7 mg/dL (8.4-10.2); Carbon Dioxide 24 mmol/L (22-29); Chloride 93 mmol/L (96-108); Creatinine Clr Calc Pharmacy 70.1; Estimated Glomerular Filt Rate > 60; Glucose Fasting 87 mg/dL (60-99); Sodium 125 mmol/L (135-145)
--- NOTE | 2023-03-28 08:46 | MHC.CM.PN ---
EMR REVIEWED, PT COVID+, CT OF ABD/[facility]LV[facility] 03/27 D/T UNINTENTIONAL WEIGHT LOSS, PT AWAITING COVID RECOVERED BED AT [facility], PT WILL NOT BE COVID RECOVERED UNTIL 04/02, [facility] PROVIDED W/UPDATED CLINICALS VIA [facility], CM WILL CONT TO FOLLOW D/C NEEDS. PT WILL NEED NEW PT EVAL PT IS DECLINING TO WORK W/PT AT THIS TIME.
[2023-03-28] MEDS: guaiFENesin DM 600/30 1 TAB TAB.ER.12H PO ×2 (09:32→20:51)
[2023-03-28] MEDS: carvediloL 25 MG TABLET PO ×2 (09:32→20:51)
[2023-03-28] MEDS: hydrALAZINE HCl 50 MG TABLET PO ×3 (09:32→20:51)
[2023-03-28] MEDS: Sodium Chloride Tab 1 GM TABLET PO ×2 (09:32→20:51)
[2023-03-28] MEDS: Isosorbide Mononitrate 60 MG TAB.ER.24H PO (09:32)
[2023-03-28] MEDS: Folic Acid 1 MG TABLET PO (09:32)
[2023-03-28] MEDS: Gabapentin 100 MG CAPSULE PO ×3 (09:33→20:51)
[2023-03-28] MEDS: dexAMETHasone sod phosphate 4 MG/ML VIAL 6 MG IVPUSH (09:33)
--- NOTE | 2023-03-28 09:51 | P.PNIM_ITS ---
Subjective Subjective Date of Service: 03/28/23 Interval History: feeling stronger Physical Exam 2 Vital Signs: Vital Signs: Last Vital Signs Temp 97.5 F 03/28/23 07:54 Pulse 66 03/28/23 07:54 Resp 20 03/28/23 07:54 BP 163/85 H 03/28/23 07:54 Pulse Ox 92 03/28/23 07:54 O2 Del Method Room Air 03/28/23 07:54 O2 Flow Rate 2 03/26/23 23:31 BMI result Body Mass Index 19.0 Const: Other: Constitutional : Awake, interactive, not in distress Neck : Normal inspection, Supple Cardiovascular : RRR, no JVP, no lower extremity edema Respiratory : good bilateral air entry, no crackles, wheezes or rhonchi Gastrointestinal: soft, lax, Normal bowel sounds, Non tender Skin : Warm, Dry Neurological : Alert & oriented x3, No focal deficit Objective Data Active Medications Acetaminophen (Acetaminophen 325 Mg Tablet) 975 mg PO TID [facility] Last Admin: 03/28/23 04:11 Dose: 975 mg Documented By: PHILIP Comments: 0900 dose given early Carvedilol (Carvedilol 25 Mg Tablet) 25 mg PO BID [facility]; Protocol Last Admin: 03/28/23 09:32 Dose: 25 mg Documented By: JULIANE Dexamethasone Sodium Phosphate (Dexamethasone Sod Phosphate 4 Mg/Ml Vial) 6 mg IVPUSH DAILY [facility] Last Admin: 03/28/23 09:33 Dose: 6 mg Documented By: JULIANE Docusate Sodium (Docusate Sodium 100 Mg Capsule) 100 mg PO DAILY PRN PRN Reason: Constipation Last Admin: 03/27/23 16:59 Dose: 100 mg Documented By: CAROLYN Enoxaparin Sodium (Enoxaparin Sodium 40 Mg/0.4 Ml Syringe) 40 mg SUBCUT Q24H [facility] Last Admin: 03/27/23 16:36 Dose: 40 mg Documented By: CAROLYN Folic Acid (Folic Acid 1 Mg Tablet) 1 mg PO DAILY [facility] Last Admin: 03/28/23 09:32 Dose: 1 mg Documented By: JULIANE Gabapentin (Gabapentin 100 Mg Capsule) 100 mg PO TID [facility] Last Admin: 03/28/23 09:33 Dose: 100 mg Documented By: JULIANE Guaifenesin/Dextromethorphan (Guaifenesin Dm 600/30 1 Tab Tab.Er.12h) 1 tab PO BID [facility] Last Admin: 03/28/23 09:32 Dose: 1 tab Documented By: JULIANE Hydralazine HCl (Hydralazine Hcl 50 Mg Tablet) 50 mg PO TID [facility]; Protocol Last Admin: 03/28/23 09:32 Dose: 50 mg Documented By: JULIANE Isosorbide Mononitrate (Isosorbide Mononitrate 60 Mg Tab.Er.24h) 60 mg PO DAILY [facility]; Protocol Last Admin: 03/28/23 09:32 Dose: 60 mg Documented By: JULIANE Ondansetron HCl (Ondansetron Hcl 4 Mg/2 Ml Vial) 4 mg IVPUSH Q8H PRN PRN Reason: Nausea and Vomiting Oxycodone HCl (Oxycodone Hcl Immed Release 5 Mg Tablet) 5 mg PO Q6H PRN PRN Reason: Pain, Severe (Pain Scale 7-10) Last Admin: 03/28/23 04:17 Dose: 5 mg Documented By: PHILIP Sodium Chloride (0.9 % Sodium Chloride Flush 3 Ml Syringe) 3 ml IVFLUSH QSHIFT [facility] Last Admin: 03/28/23 09:30 Dose: 3 ml Documented By: JULIANE Sodium Chloride (Sodium Chloride Tab 1 Gm Tablet) 1 gm PO BID [facility] Last Admin: 03/28/23 09:32 Dose: 1 gm Documented By: JULIANE Labs 03/27/23 06:36 03/28/23 07:33 Labs: Laboratory Results - last 24 hr 03/27/23 03/28/23 09:07 07:33 Anion Gap 10 L 13 Estim Creat Clear Calc 67.8 70.1 Estimated GFR > 60 > 60 Fasting Glucose 86 87 Calcium 8.7 8.7 Assessment and Plan (1) COVID-19 virus infection: Status: Acute (2) Acute respiratory failure with hypoxia: Status: Acute (3) Psychogenic polydipsia: Status: Acute (4) Urinary tract infection: Status: Acute (5) Acute hyponatremia: Status: Acute Plan 67F PMH nonischemic cardiomyopathy s/p aicd, cereberal anuerysm s/p clipping and coiling, gout, htn, crohns, former smoker, presented with ams found to have UTI, L1 fracture, hyponatremia, during hospitalization developed cough, tachycardia, found to be covid positive Acute hypoxic respiratory failure secondary to COVID-19 Remdesivir completed, dexamethasone day 7 mucinex, incentive spirometry on room air Acute metabolic encephalopathy Due to hyponatremia and urinary tract infection resolved hyponatremia 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 with poor solute intake Sodium improved at acceptable rate, improved to 128, keeps fluctuating added salt tablets Continue fluid restriction follow BMP urinary tract infection completed ceftriaxone Acute L1 fracture Pain control, physical therapy Unintentional weight loss ca19-9 [address] on CT abd and pelvis, ?5mm cyst on tail of pancreas oncology eval Stage II decubitus ulcer of the sacrum, stage I decubitus ulcer of bilateral buttocks Repositioning Crohn's disease Stable Nonischemic cardiomyopathy, hypertension Continue carvedilol, hydralazine, Imdur DVT prophylaxis with Lovenox Full code reason for continued hospitalization: rehab placement for covid positive (will be considered recovered 04/02/23) Time Spent With Patient Time: Total time managing care of this patient today ____ minutes. Quality Stroke Does the patient have a stroke diagnosis?: No VTE Prior VTE?: No VTE Risk Level:: Medical - moderate - high VTE Device Contraindication: Treatment Not Indicated VTE Drug Contraindication: N/A - Med Ordered
[2023-03-28] MEDS: Docusate Sodium 100 MG CAPSULE PO (10:30)
--- NOTE | 2023-03-28 12:08 | MHC.CLN ---
F/U PO INTAKE VARIABLE DIET RX: REGULAR, 1500 ML FLUID RESTRICTION-APPROPRIATE SKIN WITH STAGE II TO COCCYX AND STAGE I TO BILATERAL BUTTOCKS PT RECEIVING ENSURE MAX BID PROVIDES 300 KCALS, 60 G PROTEIN, 600 ML FREE WATER CONTINUE TO MONITOR PO INTAKE AND ENCOURAGE SUPPLEMENT
[2023-03-28 15:11] VITALS: BP 109/59; PULSE 65; RESP 20; TEMP 36.2; O2SAT 94
[2023-03-28] MEDS: Enoxaparin Sodium 40 MG/0.4 ML SYRINGE SUBCUT (15:44)
[2023-03-28 19:17] VITALS: BP 145/70; PULSE 77; RESP 20; TEMP 36.2; O2SAT 90
[2023-03-29] VITALS: BP 161/77; PULSE 61; RESP 18; TEMP 36.5; O2SAT 91
[2023-03-29] MEDS: 0.9 % Sodium Chloride Flush 3 ML SYRINGE IVFLUSH ×3 (00:51→15:53)
[2023-03-29] MEDS: oxyCODONE HCl Immed Release 5 MG TABLET PO ×3 (06:05→18:23)
[2023-03-29 07:44] VITALS: BP 188/89; PULSE 71; RESP 19; TEMP 36.4; O2SAT 94
[2023-03-29 08:05] LABS: Anion Gap 12 (12-20); Blood Urea Nitrogen 18 mg/dL (9-16); Calcium 8.7 mg/dL (8.4-10.2); Carbon Dioxide 24 mmol/L (22-29); Chloride 95 mmol/L (96-108); Creatinine Clr Calc Pharmacy 70.1; Estimated Glomerular Filt Rate > 60; Glucose Fasting 87 mg/dL (60-99); Potassium 4.1 mmol/L (3.3-5.1); Sodium 127 mmol/L (135-145)
[2023-03-29] MEDS: dexAMETHasone sod phosphate 4 MG/ML VIAL 6 MG IVPUSH (08:05)
[2023-03-29] MEDS: Sodium Chloride Tab 1 GM TABLET PO ×2 (08:08→21:46)
[2023-03-29] MEDS: Gabapentin 100 MG CAPSULE PO ×3 (08:08→21:49)
[2023-03-29] MEDS: Isosorbide Mononitrate 60 MG TAB.ER.24H PO (08:08)
[2023-03-29] MEDS: Folic Acid 1 MG TABLET PO (08:08)
[2023-03-29] MEDS: carvediloL 25 MG TABLET PO ×2 (08:08→21:47)
[2023-03-29] MEDS: hydrALAZINE HCl 50 MG TABLET PO ×3 (08:08→21:46)
[2023-03-29] MEDS: Acetaminophen 325 MG TABLET 975 MG PO ×3 (08:08→21:47)
[2023-03-29] MEDS: guaiFENesin DM 600/30 1 TAB TAB.ER.12H PO ×2 (08:08→21:46)
[2023-03-29] MEDS: Urea 15 GM POWDER 30 GM PO (09:57)
--- NOTE | 2023-03-29 10:56 | P.CONNP_ITS ---
History of Present Illness Reason for Consult Consult date: 03/29/23 Reason for consult: Hyponatremia Chief Complaint Chief complaint: general weakness, UTI, falls, hyponatremia History of Present Illness Narrative: 67-year-old female with history of nonischemic cardiomyopathy s/p ICD placement, history of cerebral aneurysm s/p clipping coiling, gout, hypertension, former smoker with 40 pack year history, and Crohn's disease presented to the hospital earlier today with her son with whom she lives for evaluation of generalized weakness ongoing for about 1 month. She states the weakness has been progressive and she has been unable to get out of bed without significant difficulty and requires furniture surfing while ambulating which is not her baseline. Yesterday she did have a fall onto her buttock and denies any head strike or loss of consciousness. Since then has had 10/10 pain in the sacrum/coccyx region. She tells me that over the last week, she has also developed urge incontinence, dysuria, and suprapubic pressure. She tells me that because she has been unable to get out of bed much, has developed pressure ulcer on the sacrum. She also tells me that since the beginning of the year, has had a 30 lb unintentional weight loss. She states she has little appetite but has been drinking a lot of fluids. Drinks about 8, 16 oz bottles of water on a daily basis. She denies any fevers, chills, sore throat, headache, abdominal pain, nausea, vomiting, cough, shortness of breath, chest pain, lightheadedness. She does report occasional diarrhea related to her Crohn's disease but this is rare. Denies any bright red blood per rectum or melena. Patient is alert and oriented x4 but does appear somewhat confused when telling story or giving history with small details. Her son reports this is not her baseline. Nephrology consult was called on 03/19/2023 however consultation was not performed. Repeat consultation was requested on 03/29/2023 [facility] Past Medical History Medical History ICD (implantable cardioverter-defibrillator) in place Gout Cerebral aneurysm Essential hypertension NICM (nonischemic cardiomyopathy) Family History Family History Father CAD (coronary artery disease) HTN (hypertension) Cardiomyopathy Mother Suicide Surgical History Surgical History History of implantable cardioverter-defibrillator (ICD) placement (~10/12/14) History of cardiac catheterization (~2013) Social History Social History Household Members: Children Household Members Other:: 1 Housing: House Alcohol intake: current Alcohol intake frequency: holidays/special occasions only Patient Tobacco Use Status: Former Tobacco user Quit Date: 18 years ago Tobacco use type: Cigarette Years Smoked: 35 Smoked in Last 30 Days: No e-Cigarette/Vaping Use: Never Used Patient Interested in Nicotine Replacement: No Patient Given Instructions on How to Stop Smoking: No Second Hand Smoke Exposure: No Use of substances other than those prescribed or required for medical reasons: No Currently Displaying Signs/Symptoms of Drug Intoxication Withdrawal: No Any prior treatment program specific to substance use: No Have you been hit, kicked, punched, or otherwise hurt by someone within the past year? If so, by whom?: No Do you feel safe in your current relationship?: No Current Relationship Is there a partner from a previous relationship who is making you feel unsafe now?: No Are you made to feel afraid or neglected: No Advance Directives: Yes Advance Directives on File: Yes Advance Directives Date on File: 03/19/23 Do you have thoughts of harming others: None Do you have a plan to hurt others: No Plan Recently lost weight without trying: Yes How much weight loss: 34pounds or more Eating poorly because of decreased appetite: Yes Nutrition screen score: 7 Nutrition Risks: Anorexia Patient : No : No Poor oral hygiene: No service: No Meds Allergies Allergy/AdvReac Type Severity Reaction Status Date / Time SAUL Inhibitors Allergy Severe ANAPHYLAXIS Verified 03/19/23 10:07 [SAUL INHIBITORS] amoxicillin [AMOXICILLIN] Allergy Unknown DIARRHEA Verified 03/19/23 10:07 hydrochlorothiazide Allergy Unknown UNKNOWN Verified 03/19/23 10:07 [HYDROCHLOROTHIAZIDE] Penicillins [PENICILLINS] Allergy Unknown UNKNOWN Verified 03/19/23 10:07 lisinopril Allergy Difficulty Verified 03/19/23 10:08 Swallowing Active Medications: Current Medications Acetaminophen (Acetaminophen 325 Mg Tablet) 975 mg PO TID [facility] Last Admin: 03/29/23 08:08 Dose: 975 mg Carvedilol (Carvedilol 25 Mg Tablet) 25 mg PO BID [facility]; Protocol Last Admin: 03/29/23 08:08 Dose: 25 mg Dexamethasone Sodium Phosphate (Dexamethasone Sod Phosphate 4 Mg/Ml Vial) 6 mg IVPUSH DAILY [facility] Last Admin: 03/29/23 08:05 Dose: 6 mg Docusate Sodium (Docusate Sodium 100 Mg Capsule) 100 mg PO DAILY PRN PRN Reason: Constipation Last Admin: 03/28/23 10:30 Dose: 100 mg Enoxaparin Sodium (Enoxaparin Sodium 40 Mg/0.4 Ml Syringe) 40 mg SUBCUT Q24H [facility] Last Admin: 03/28/23 15:44 Dose: 40 mg Folic Acid (Folic Acid 1 Mg Tablet) 1 mg PO DAILY [facility] Last Admin: 03/29/23 08:08 Dose: 1 mg Gabapentin (Gabapentin 100 Mg Capsule) 100 mg PO TID [facility] Last Admin: 03/29/23 08:08 Dose: 100 mg Guaifenesin/Dextromethorphan (Guaifenesin Dm 600/30 1 Tab Tab.Er.12h) 1 tab PO BID [facility] Last Admin: 03/29/23 08:08 Dose: 1 tab Hydralazine HCl (Hydralazine Hcl 50 Mg Tablet) 50 mg PO TID [facility]; Protocol Last Admin: 03/29/23 08:08 Dose: 50 mg Isosorbide Mononitrate (Isosorbide Mononitrate 60 Mg Tab.Er.24h) 60 mg PO DAILY [facility]; Protocol Last Admin: 03/29/23 08:08 Dose: 60 mg Ondansetron HCl (Ondansetron Hcl 4 Mg/2 Ml Vial) 4 mg IVPUSH Q8H PRN PRN Reason: Nausea and Vomiting Oxycodone HCl (Oxycodone Hcl Immed Release 5 Mg Tablet) 5 mg PO Q6H PRN PRN Reason: Pain, Severe (Pain Scale 7-10) Last Admin: 03/29/23 06:05 Dose: 5 mg Sodium Chloride (0.9 % Sodium Chloride Flush 3 Ml Syringe) 3 ml IVFLUSH QSHIFT [facility] Last Admin: 03/29/23 08:05 Dose: 3 ml Sodium Chloride (Sodium Chloride Tab 1 Gm Tablet) 1 gm PO BID [facility] Last Admin: 03/29/23 08:08 Dose: 1 gm Home Medications Medication Instructions Recorded Confirmed Last Taken Type folic acid 1 mg tablet 1 mg PO DAILY 01/18/21 03/19/23 03/18/23 History Physical Exam Vital Signs: Last Vital Signs Temp 97.5 F 03/29/23 07:44 Pulse 71 03/29/23 07:44 Resp 19 03/29/23 07:44 BP 188/89 H 03/29/23 07:44 Pulse Ox 94 03/29/23 07:44 O2 Del Method Room Air 03/29/23 07:44 O2 Flow Rate 2 03/26/23 23:31 BMI result Body Mass Index 19.0 Comfortable Neck is supple Lung: Air entry equal Heart: S1,S2, normal. No rub Abd: Soft. BS + NS : Alert.No asterexis Results Lab Results 03/27/23 06:36 03/29/23 07:39 Lab results: Chemistry 03/27/23 03/28/23 03/29/23 09:07 07:33 07:39 Sodium 129 L 125 L 127 L Potassium 4.4 5.0 4.1 Carbon Dioxide 24 24 24 BUN 31 H 22 H 18 H Creatinine 0.61 0.59 0.59 Calcium 8.7 8.7 8.7 Hematology 03/27/23 06:36 WBC 5.9 Hgb 10.7 L Plt Count 247 Assessment and Plan (1) Acute hyponatremia: Status: Acute Plan 67-year-old woman with chronic asymptomatic hyponatremia. Clinically she appears euvolemic. She probably has non osmotic ADH release and source needs to be determined. About 10 days ago urine sodium was less than 20 with a urine osmolality of 196. Subsequently serum sodium improved and has started to decrease again. Recommendations Check urine for sodium creatinine and osmolality. Check serum osmolality Check serum cortisol Restrict oral free water intake to 1.2 L per 24 hours. If serum sodium drops less than 125 I would add urea powder 30 g p.o. b.i.d. to increase osmotic load. She will follow along with the team. Time Spent With Patient Time: Total time managing care of this patient today ____ minutes. Procedures Date of Service Date of Service: 03/29/23
[2023-03-29 11:54] VITALS: BP 135/63
--- NOTE | 2023-03-29 14:02 | P.PNIM_ITS ---
Subjective Subjective Date of Service: 03/29/23 Interval History: Seen and evaluated Feels better overall Sodium still running low Tolerating diet well Review of Systems Review of Systems: Yes all other systems are reviewed and are negative Physical Exam 2 Vital Signs: Vital Signs: Last Vital Signs Temp 97.5 F 03/29/23 07:44 Pulse 71 03/29/23 07:44 Resp 19 03/29/23 07:44 BP 135/63 03/29/23 11:54 Pulse Ox 94 03/29/23 07:44 O2 Del Method Room Air 03/29/23 07:44 O2 Flow Rate 2 03/26/23 23:31 BMI result Body Mass Index 19.0 Const: Other: Constitutional : Awake, interactive, not in distress Neck : Normal inspection, Supple Cardiovascular : RRR, no JVP, no lower extremity edema Respiratory : good bilateral air entry, no crackles, wheezes or rhonchi Gastrointestinal: soft, lax, Normal bowel sounds, Non tender Skin : Warm, Dry Neurological : Alert & oriented x3, No focal deficit Objective Data Active Medications Acetaminophen (Acetaminophen 325 Mg Tablet) 975 mg PO TID [facility] Last Admin: 03/29/23 08:08 Dose: 975 mg Documented By: GARTH Carvedilol (Carvedilol 25 Mg Tablet) 25 mg PO BID [facility]; Protocol Last Admin: 03/29/23 08:08 Dose: 25 mg Documented By: GARTH Dexamethasone Sodium Phosphate (Dexamethasone Sod Phosphate 4 Mg/Ml Vial) 6 mg IVPUSH DAILY [facility] Last Admin: 03/29/23 08:05 Dose: 6 mg Documented By: GARTH Docusate Sodium (Docusate Sodium 100 Mg Capsule) 100 mg PO DAILY PRN PRN Reason: Constipation Last Admin: 03/28/23 10:30 Dose: 100 mg Documented By: JULIANE Enoxaparin Sodium (Enoxaparin Sodium 40 Mg/0.4 Ml Syringe) 40 mg SUBCUT Q24H [facility] Last Admin: 03/28/23 15:44 Dose: 40 mg Documented By: JULIANE Folic Acid (Folic Acid 1 Mg Tablet) 1 mg PO DAILY [facility] Last Admin: 03/29/23 08:08 Dose: 1 mg Documented By: GARTH Gabapentin (Gabapentin 100 Mg Capsule) 100 mg PO TID [facility] Last Admin: 03/29/23 08:08 Dose: 100 mg Documented By: GARTH Guaifenesin/Dextromethorphan (Guaifenesin Dm 600/30 1 Tab Tab.Er.12h) 1 tab PO BID [facility] Last Admin: 03/29/23 08:08 Dose: 1 tab Documented By: GARTH Hydralazine HCl (Hydralazine Hcl 50 Mg Tablet) 50 mg PO TID [facility]; Protocol Last Admin: 03/29/23 08:08 Dose: 50 mg Documented By: GARTH Isosorbide Mononitrate (Isosorbide Mononitrate 60 Mg Tab.Er.24h) 60 mg PO DAILY [facility]; Protocol Last Admin: 03/29/23 08:08 Dose: 60 mg Documented By: GARTH Ondansetron HCl (Ondansetron Hcl 4 Mg/2 Ml Vial) 4 mg IVPUSH Q8H PRN PRN Reason: Nausea and Vomiting Oxycodone HCl (Oxycodone Hcl Immed Release 5 Mg Tablet) 5 mg PO Q6H PRN PRN Reason: Pain, Severe (Pain Scale 7-10) Last Admin: 03/29/23 12:27 Dose: 5 mg Documented By: GARTH Sodium Chloride (0.9 % Sodium Chloride Flush 3 Ml Syringe) [facility] Last Admin: 03/29/23 08:05 Dose: 3 ml Documented By: GARTH Sodium Chloride (Sodium Chloride Tab 1 Gm Tablet) 1 gm PO BID [facility] Last Admin: 03/29/23 08:08 Dose: 1 gm Documented By: GARTH Labs 03/27/23 06:36 03/29/23 07:39 Labs: Laboratory Results - last 24 hr 03/29/23 07:39 Anion Gap 12 Estim Creat Clear Calc 70.1 Estimated GFR > 60 Fasting Glucose 87 Calcium 8.7 Assessment and Plan (1) Acute respiratory failure with hypoxia: Status: Acute (2) COVID-19 virus infection: Status: Acute (3) Unintentional weight loss: Status: Acute (4) Urinary tract infection: Status: Acute (5) Acute hyponatremia: Status: Acute Plan 67F PMH nonischemic cardiomyopathy s/p aicd, cereberal anuerysm s/p clipping and coiling, gout, htn, crohns, former smoker, presented with ams found to have UTI, L1 fracture, hyponatremia, during hospitalization developed cough, tachycardia, found to be covid positive Unintentional weight loss Elevated CA19-9 and CA 15-[address] abd and pelvis, ?5mm cyst on tail of pancreas oncology eval pending Acute hypoxic respiratory failure secondary to COVID-19 Remdesivir completed, dexamethasone day 8 mucinex, incentive spirometry on room air Acute metabolic encephalopathy Due to hyponatremia and urinary tract infection resolved acute hyponatremia 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 with poor solute intake and possible SIADH Sodium keeps fluctuating added Urea Continue fluid restriction Nephrology consult follow BMP urinary tract infection completed ceftriaxone Acute L1 fracture Pain control, physical therapy Stage II decubitus ulcer of the sacrum, stage I decubitus ulcer of bilateral buttocks Repositioning Crohn's disease Stable Nonischemic cardiomyopathy, hypertension Continue carvedilol, hydralazine, Imdur DVT prophylaxis with Lovenox Full code reason for continued hospitalization: pending oncology eval and rehab placement for covid positive (will be considered recovered 04/02/23) Time Spent With Patient Time: Total time managing care of this patient today ____ minutes. Quality Stroke Does the patient have a stroke diagnosis?: No VTE Prior VTE?: No VTE Risk Level:: Medical - moderate - high VTE Device Contraindication: Treatment Not Indicated VTE Drug Contraindication: N/A - Med Ordered
[2023-03-29 14:48] LABS: Anion Gap 11 (12-20); Blood Urea Nitrogen 61 mg/dL (9-16); Calcium 8.4 mg/dL (8.4-10.2); Carbon Dioxide 26 mmol/L (22-29); Chloride 95 mmol/L (96-108); Creatinine Clr Calc Pharmacy 68.9; Estimated Glomerular Filt Rate > 60; Glucose Random 118 mg/dL (60-115); Potassium 4.4 mmol/L (3.3-5.1); Sodium 128 mmol/L (135-145)
[2023-03-29] MEDS: Enoxaparin Sodium 40 MG/0.4 ML SYRINGE SUBCUT (15:52)
[2023-03-29 15:55] VITALS: BP 172/79; PULSE 71; RESP 18; TEMP 37.1; O2SAT 91
[2023-03-29 16:28] LABS: CA-125 86 U/mL (<35)
[2023-03-29 18:43] LABS: Osmolality Urine 423 mosm/kg (373-1093)
[2023-03-29 20:02] VITALS: BP 134/66; PULSE 77; RESP 18; TEMP 37; O2SAT 90
[2023-03-30] VITALS (7 sets, daily range): BP systolic 142–199; BP diastolic 75–103; PULSE 69–84; RESP 18–20; TEMP 36.4–36.9; O2SAT 88–94
[2023-03-30] MEDS: oxyCODONE HCl Immed Release 5 MG TABLET PO ×4 (00:29→18:15)
[2023-03-30] MEDS: 0.9 % Sodium Chloride Flush 3 ML SYRINGE IVFLUSH ×3 (00:30→20:00)
[2023-03-30 06:57] LABS: Anion Gap 12 (12-20); Blood Urea Nitrogen 57 mg/dL (9-16); Calcium 8.6 mg/dL (8.4-10.2); Carbon Dioxide 25 mmol/L (22-29); Chloride 97 mmol/L (96-108); Creatinine Clr Calc Pharmacy 60.9; Estimated Glomerular Filt Rate > 60; Glucose Random 99 mg/dL (60-115); Sodium 130 mmol/L (135-145)
--- NOTE | 2023-03-30 08:25 | PM.HEMONCCN ---
Subjective - Subjective Chief complaint: CONSULT FOR: 1. ANOREXIA. 2. WEIGHT LOSS. Patient: new to practice Consult date: 03/30/23 Primary Care Provider: None Physician Medical Summary: DIAGNOSIS: 1. WEIGHT LOSS. 2. FATIGUE. 3. PANCREATIC CYST. HPI - Consult Narrative Reason for consult: CONSULT FOR: WEIGHT LOSS. PANCREATIC CYST. Narrative: Tiana Reddy is a 67 year old lady, with history of nonischemic cardiomyopathy s/p ICD placement, history of cerebral aneurysm s/p clipping coiling, gout, hypertension, former smoker with 40 pack year history, and Crohn's disease. She presented to the hospital on 03/19, with her son with whom she lives, for evaluation of generalized weakness ongoing for about 1 month. She stated the weakness was progressive. Lately she has been unable to get out of bed without difficulty and requires furniture surfing while ambulating, which is not her baseline. Theday before addmission, she fell onto her buttock. DenieD any head strike or loss of consciousness. Since then has had 10/10 pain in the sacrum/coccyx region. Over the last week, she also developed urge incontinence, dysuria, and suprapubic pressure. She tells me that because she has been unable to get out of bed much, has developed pressure ulcer on the sacrum. Since the beginning of the year, she has had a 30 lb unintentional weight loss. She has very little appetite but has been drinking a lot of fluids. Drinks about 8, 16 oz bottles of water on a daily basis. She denies any fevers, chills, sore throat, headache, abdominal pain, nausea, vomiting, cough, shortness of breath, chest pain, lightheadedness. She does report occasional diarrhea related to her Crohn's disease but this is rare. Denies any bright red blood per rectum or melena. On exam she is alert and oriented x4 but does appear somewhat confused when telling story or giving history with small details. Her son reports this is not her baseline. He does report that she has been endorsing depression anxiety. Upon questioning further on this, the patient does report anxiety about her health and has been depressed since COVID stating she is typically a happy person. She has not been following with any primary care provider, but is up to date with routine cancer screenings. In the ED, vital stable. No leukocytosis. Mild normocytic anemia with H/H 11.5/33.5%. Renal function normal. Sodium 124, Cl 95, lytes otherwise normal. Serum osm 257, urine osm 192. UA with 3+ luekocytes, positive nitrites, 2+ blood, positive urinary sediment, 4+ bacteria. Negative for COVID-19. Head CT negative for acute intracranial abnormality, but does show left frontal sinus opacification and small air-fluid level in the right sphenoid sinus. CXR negative for any acute cardiopulmonary abnormality but does show interstitial lung disease. Review of Systems Review of Systems: General: No fevers. +general weakness, malaise, unintentional weight loss HEENT: No blurred vision, diplopia. No sore throat, nasal congestion, rhinorrhea, sinus pain, ear pain Cardiovascular: No chest pain, palpitations, or leg edema Respiratory: No shortness of breath, wheezing, cough GI: No abdominal pain, nausea, vomiting, diarrhea, constipation, melena, hematochezia : +dysuria, +urgency, +incontinence. No hematuria, increased urinary frequency, decreased urinary output MSK: No myalgia. +back pain Neuro: No headaches, focal weakness, paresthesias Skin: No rashes or lesions [facility] Medical History: PAST MEDICAL HISTORY: 1. Crohn's disease since her mid-20s. 2. Hypertension. 3. Gout. 4. Congestive heart failure. PAST SURGICAL HISTORY: 1. Status post cerebral aneurysm clipping in 2000. 2. Status post myomectomy. Family History Her father of lung cancer but he was long-term smoker. He also had hypertension, gout, and congestive heart failure. Mother young in early 30s probably of an accidental cause. 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 Her of pancreatic cancer. She has one child, 2 stepchildren. She used to smoke a pack per day quit 14 years ago. She drinks socially. ICD (implantable cardioverter-defibrillator) in place Gout Cerebral aneurysm Essential hypertension NICM (nonischemic cardiomyopathy) Family History: Father CAD (coronary artery disease) HTN (hypertension) Cardiomyopathy Review of Systems - Constitutional Reports system reviewed and no additional complaints, except as documented, Reports lack of energy, Reports malaise, Reports weight loss - Eyes Reports system reviewed and no additional complaints, except as documented, Denies blurry vision - ENT Reports system reviewed and no additional complaints, except as documented - Cardiovascular Reports system reviewed and no additional complaints, except as documented, Denies chest pain at rest - Respiratory Reports no additional respiratory complaints, Denies chest congestion - Gastrointestinal Reports system reviewed and no additional complaints, except as documented - Genitourinary Reports no additional female genitourinary complaints, Denies abnormal periods - Musculoskeletal Reports system reviewed and no additional complaints, except as documented, Reports abnormal walking, Reports back pain - Integumentary/Breasts Skin/Breast: Reports no additional skin complaints, Denies bleeding lesions - Neurologic Reports system reviewed and no additional complaints, except as documented, Reports behavioral changes - Psychiatric Reports system reviewed and no additional complaints, except as documented, Reports anxiety, Reports confusion - Endocrine Reports no additional endocrine complaints, Denies cold intolerance - Hematologic/Lymphatic Reports system reviewed and no additional complaints, except as documented, Denies easy bleeding - Allergic/Immunologic Reports system reviewed and no additional complaints, except as documented, Reports GI upset with certain foods Oncology Screenings - ECOG Performance Status ECOG Performance Status: 2 [facility] Medical History: Medical History (Last Reviewed 03/19/23 @ 17:35 by CITLALLI Landrum) Cerebral aneurysm Essential hypertension Gout ICD (implantable cardioverter-defibrillator) in place NICM (nonischemic cardiomyopathy) Functional capacity: wheelchair bound Patient : No Family History: Family History (Last Reviewed 03/19/23 @ 17:35 by CITLALLI Landrum) Father CAD (coronary artery disease) HTN (hypertension) Cardiomyopathy Mother Suicide Surgical History: Surgical History (Last Reviewed 03/19/23 @ 17:35 by CITLALLI Landrum) History of cardiac catheterization Onset Date: ~2013 History of implantable cardioverter-defibrillator (ICD) placement Onset Date: ~10/12/14 Social History: Social History (Last Reviewed 03/19/23 @ 17:35 by CITLALLI Landrum) Living Situation History: Household Members: Children Household Members Other:: 1 Housing: House Alcohol History Details: 1. How often do you have a drink containing alcohol?: b. Monthly or less 2. How many drinks containing alcohol do you have on a typical day when you are drinking?: a. 1 or 2 3. How often do you have six or more drinks on one occasion?: b. Less than monthly AUDIT-C Alcohol total score: 2 Currently Displaying Signs/Symptoms of Alcohol Withdrawal: No Tobacco History: Patient Tobacco Use Status: Former Tobacco user Tobacco use type: Cigarette Years Smoked: 35 Smoked in Last 30 Days: No Smoke Quit Date: 18 years ago e-Cigarette/Vaping Use: Never Used Patient Interested in Nicotine Replacement: No Patient Given Instructions on How to Stop Smoking: No Second Hand Smoke Exposure: No Substance Use History: Use of substances other than those prescribed or required for medical reasons: No Currently Displaying Signs/Symptoms of Drug Intoxication Withdrawal: No Any prior treatment program specific to substance use: No Domestic Abuse History: Have you been hit, kicked, punched, or otherwise hurt by someone within the past year? If so, by whom?: No Do you feel safe in your current relationship?: No Current Relationship Is there a partner from a previous relationship who is making you feel unsafe now?: No Are you made to feel afraid or neglected: No Advance Directives: Advance Directives: Yes Advance Directives on File: Yes Advance Directives Date on File: 03/19/23 Homicidal Assessment: Do you have thoughts of harming others: None Do you have a plan to hurt others: No Plan Nutrition Assessment: Recently lost weight without trying: Yes How much weight loss: 34pounds or more Eating poorly because of decreased appetite: Yes Nutrition screen score: 7 Nutrition Risks: Anorexia Patient : No : No Poor oral hygiene: No Occupation Assessmet: service: No Home Medications and Allergies Current Medications: Current Medications Acetaminophen (Acetaminophen 325 Mg Tablet) 975 mg PO TID [facility] Last Admin: 03/29/23 21:47 Dose: 975 mg Carvedilol (Carvedilol 25 Mg Tablet) 25 mg PO BID [facility]; Protocol Last Admin: 03/29/23 21:47 Dose: 25 mg Dexamethasone Sodium Phosphate (Dexamethasone Sod Phosphate 4 Mg/Ml Vial) 6 mg IVPUSH DAILY [facility] Last Admin: 03/29/23 08:05 Dose: 6 mg Docusate Sodium (Docusate Sodium 100 Mg Capsule) 100 mg PO DAILY PRN PRN Reason: Constipation Last Admin: 03/28/23 10:30 Dose: 100 mg Enoxaparin Sodium (Enoxaparin Sodium 40 Mg/0.4 Ml Syringe) 40 mg SUBCUT Q24H [facility] Last Admin: 03/29/23 15:52 Dose: 40 mg Folic Acid (Folic Acid 1 Mg Tablet) 1 mg PO DAILY [facility] Last Admin: 03/29/23 08:08 Dose: 1 mg Gabapentin (Gabapentin 100 Mg Capsule) 100 mg PO TID [facility] Last Admin: 03/29/23 21:49 Dose: 100 mg Guaifenesin/Dextromethorphan (Guaifenesin Dm 600/30 1 Tab Tab.Er.12h) 1 tab PO BID [facility] Last Admin: 03/29/23 21:46 Dose: 1 tab Hydralazine HCl (Hydralazine Hcl 50 Mg Tablet) 50 mg PO TID [facility]; Protocol Last Admin: 03/29/23 21:46 Dose: 50 mg Isosorbide Mononitrate (Isosorbide Mononitrate 60 Mg Tab.Er.24h) 60 mg PO DAILY [facility]; Protocol Last Admin: 03/29/23 08:08 Dose: 60 mg Ondansetron HCl (Ondansetron Hcl 4 Mg/2 Ml Vial) 4 mg IVPUSH Q8H PRN PRN Reason: Nausea and Vomiting Oxycodone HCl (Oxycodone Hcl Immed Release 5 Mg Tablet) 5 mg PO Q6H PRN PRN Reason: Pain, Severe (Pain Scale 7-10) Last Admin: 03/30/23 06:30 Dose: 5 mg Sodium Chloride (0.9 % Sodium Chloride Flush 3 Ml Syringe) 3 ml IVFLUSH QSHIFT [facility] Last Admin: 03/30/23 00:30 Dose: 3 ml Sodium Chloride (Sodium Chloride Tab 1 Gm Tablet) 1 gm PO BID [facility] Last Admin: 03/29/23 21:46 Dose: 1 gm Home Medications Medication Instructions Recorded Confirmed Type folic acid 1 mg tablet 1 mg PO DAILY 01/18/21 03/19/23 History Allergies Allergy/AdvReac Type Severity Reaction Status Date / Time SAUL Inhibitors Allergy Severe ANAPHYLAXIS Verified 03/19/23 10:07 [SAUL INHIBITORS] amoxicillin [AMOXICILLIN] Allergy Unknown DIARRHEA Verified 03/19/23 10:07 hydrochlorothiazide Allergy Unknown UNKNOWN Verified 03/19/23 10:07 [HYDROCHLOROTHIAZIDE] Penicillins [PENICILLINS] Allergy Unknown UNKNOWN Verified 03/19/23 10:07 lisinopril Allergy Difficulty Verified 03/19/23 10:08 Swallowing Physical Exam Vital signs: Vital Signs Temp 97.8 F 03/30/23 00:00 Pulse 78 03/30/23 00:00 Resp 20 03/30/23 00:00 BP 166/77 H 03/30/23 00:00 Pulse Ox 91 L 03/30/23 00:00 O2 Del Method Room Air 03/30/23 00:00 O2 Flow Rate 2 03/26/23 23:31 Intake & Output 03/29/23 03/30/23 03/30/23 18:59 06:59 18:59 Intake Total 520 / 520 Output Total 500 / 1500 1000 / 1500 Balance 20 / -980 -1000 / -980 Urine Output (Average ml/kg/hr) 0.86 1.71 Intake: Intake, Oral Amount 520 / 520 Output: Output, Urine Amount 500 / 1500 1000 / 1500 Other: Breakfast % Eaten 100% Lunch % Eaten 25% Number of Incontinent Voids 2 Urine purewick Urine Color Yellow Yellow Last Bowel Movement 03/28/23 Weight 48.7 kg - Constitutional Present: moderate distress, chronically ill appearing - Routine HEENT Exam Head: Present: normal inspection, normocephalic ENT: Present: mucous membranes moist - Routine Neck Exam Present: supple - Routine Respiratory Exam Present: CTAB - Routine Cardiovascular Exam Cardiovascular: Present: RRR, S1, S2 - Routine Abdominal Exam Present: soft, nontender - Routine Extremities Exam Present: nontender - Routine Skin Exam Present: intact - Routine Neurological Exam Present: alert, oriented X3 - Detailed Neurological Exam: Coma Scale Eye Opening: Spontaneous (4) Verbal Response: Oriented (5) Motor Response: Obeys commands (6) Alicia Coma Scale Total: 15 - Routine Psychiatric Exam Present: normal affect Hem/Onc Consult Result - Labs CBC & Chem 7: 03/27/23 06:36 03/31/23 06:14 Labs: BMP 03/29/23 03/30/23 14:25 06:34 Sodium 128 L 130 L Potassium 4.4 4.0 Chloride 95 L 97 Carbon Dioxide 26 25 BUN 61 H 57 H Creatinine 0.60 0.68 Calcium 8.4 8.6 Assessment and Plan Patient Active problem list reviewed?: Yes (1) Unintentional weight loss Status: Acute Assessment and plan: This is a pleasant 67 year old lady, who was admitted on 03/19 with unintentional 30 lb weight loss over 9 months. -she was noted to have anorexia as well as polydipsia -Does feel depression/anxiety which could be contributory, psychiatry consult placed -Last endoscopy/colonoscopy 2018 without significnat abnormality -Reports UTD with mammograms -Former smoker with 40 pack year history, quit 15 years ago. CXR negative except for interstitial lung disease. CT chest from 03/20 revealed: Severe interstitial lung disease with honeycombing. Enlarged heart. Severe L1 vertebral body compression fracture. Gallstones. CT abdomen from 03/27: 5 mm low-attenuation lesion in the tail the pancreas. This may represent a cyst. Follow-up MR with MRCP recommended. Mild fatty infiltration of the liver. Probable small liver cyst. Small gallstones. Severe constipation/obstipation and fecal impaction. Wall thickening of the rectoigmoid questionable for mild stercoral colitis related to chronic constipation. Severe L1 vertebral body compression fracture. This does not appear acute but is new in the interval from 2019 CT. -Hematology studies reassuring, Her renal function is normal. A1c 4.5%, Liver function normal. TSH normal. Hepatitis C ab pending -Psychiatry and nutrition evaluate patient -Tumor markers: AFP: 2. CEA: 7.1. CA 15-3: 64. CA 19-9: 768. CA 125:86. Patient has had significant weight loss. Imaging reveals 5 mm low-attenuation lesion in the tail of the pancreas. Differential diagnosis: IPMN. Pancreatic cyst. Versus: Pancreatic cancer. PLAN: Will proceed with an MRCP for further evaluation. If that is confirmed then will be referred to [facility] for endoscopic ultrasound-guided biopsy. May also need a PET scan. Will proceed with further work up on the outpt. basis. Thank you for the consult, CC: - Time Spent With Patient Time Spent with Patient (in minutes): 30
[2023-03-30] MEDS: Isosorbide Mononitrate 60 MG TAB.ER.24H PO (09:22)
[2023-03-30] MEDS: carvediloL 25 MG TABLET PO ×2 (09:22→19:55)
[2023-03-30] MEDS: Folic Acid 1 MG TABLET PO (09:22)
[2023-03-30] MEDS: hydrALAZINE HCl 50 MG TABLET PO (09:22)
[2023-03-30] MEDS: Sodium Chloride Tab 1 GM TABLET PO (09:22)
[2023-03-30] MEDS: guaiFENesin DM 600/30 1 TAB TAB.ER.12H PO ×2 (09:22→19:57)
[2023-03-30] MEDS: Gabapentin 100 MG CAPSULE PO ×3 (09:22→19:55)
[2023-03-30] MEDS: Acetaminophen 325 MG TABLET 975 MG PO ×2 (09:23→15:36)
[2023-03-30] MEDS: Docusate Sodium 100 MG CAPSULE PO (09:23)
[2023-03-30] MEDS: dexAMETHasone sod phosphate 4 MG/ML VIAL 6 MG IVPUSH (09:24)
[2023-03-30] MEDS: Lactulose 20 GM/30 ML SOLUTION PO (11:18)
--- NOTE | 2023-03-30 13:16 | MHC.CLN ---
F/U PO INTAKE CONTINUES TO BE VARIABLE DIET RX: REGULAR, 1000 ML FLUID RESTRICTION-APPROPRIATE SKIN WITH STAGE II TO COCCYX AND STAGE I TO BILATERAL BUTTOCKS PT RECEIVING ENSURE MAX BID PROVIDES 300 KCALS, 60 G PROTEIN, 600 ML FREE WATER CONTINUE TO MONITOR PO INTAKE AND ENCOURAGE SUPPLEMENT
--- NOTE | 2023-03-30 13:20 | MHC.CM.PN ---
EMR REVIEWED, PT COVID+ W/HYPONATREMIA, RECEIVED ORAL SUPPLEMENT, P.T. CONT'S TO RECOMMEND STR, [facility] AND WILL ACCEPT ONCE COVID RECOVERED, NO OTHER BED OFFERS AT THIS TIME, CM WILL CONT TO FOLLOW D/C NEEDS.
--- NOTE | 2023-03-30 14:06 | HO.PM.IMPN ---
Subjective Subjective Date of Service: 03/30/23 Interval History: Seen and evaluated did not sleep much, anxious, complaining of pain in back and lower extremities Sodium up to 130 Tolerating diet well Review of Systems Review of Systems: Yes all other systems are reviewed and are negative Physical Exam Vital Signs: Vital Signs: Last Vital Signs Temp 98.2 F 03/30/23 11:22 Pulse 74 03/30/23 11:22 Resp 18 03/30/23 11:22 BP 161/77 H 03/30/23 11:22 Pulse Ox 94 03/30/23 11:22 O2 Del Method Room Air 03/30/23 11:22 O2 Flow Rate 2 03/30/23 08:00 BMI result Body Mass Index 19.0 Const: Other: Constitutional : Awake, interactive, not in distress Neck : Normal inspection, Supple Cardiovascular : RRR, no JVP, no lower extremity edema Respiratory : good bilateral air entry, no crackles, wheezes or rhonchi Gastrointestinal: soft, lax, Normal bowel sounds, Non tender Skin : Warm, Dry Neurological : Alert & oriented x3, No focal deficit Objective Data Active Medications Acetaminophen (Acetaminophen 325 Mg Tablet) 975 mg PO TID [facility] Last Admin: 03/30/23 09:23 Dose: 975 mg Documented By: GARTH Carvedilol (Carvedilol 25 Mg Tablet) 25 mg PO BID [facility]; Protocol Last Admin: 03/30/23 09:22 Dose: 25 mg Documented By: GARTH Docusate Sodium (Docusate Sodium 100 Mg Capsule) 100 mg PO DAILY PRN PRN Reason: Constipation Last Admin: 03/30/23 09:23 Dose: 100 mg Documented By: GARTH Enoxaparin Sodium (Enoxaparin Sodium 40 Mg/0.4 Ml Syringe) 40 mg SUBCUT Q24H [facility] Last Admin: 03/29/23 15:52 Dose: 40 mg Documented By: GARTH Folic Acid (Folic Acid 1 Mg Tablet) 1 mg PO DAILY [facility] Last Admin: 03/30/23 09:22 Dose: 1 mg Documented By: GARTH Gabapentin (Gabapentin 100 Mg Capsule) 100 mg PO TID [facility] Last Admin: 03/30/23 09:22 Dose: 100 mg Documented By: GARTH Guaifenesin/Dextromethorphan (Guaifenesin Dm 600/30 1 Tab Tab.Er.12h) 1 tab PO BID [facility] Last Admin: 03/30/23 09:22 Dose: 1 tab Documented By: GARTH Hydralazine HCl (Hydralazine Hcl 25 Mg Tablet) 75 mg PO TID [facility]; Protocol Isosorbide Mononitrate (Isosorbide Mononitrate 60 Mg Tab.Er.24h) 60 mg PO DAILY [facility]; Protocol Last Admin: 03/30/23 09:22 Dose: 60 mg Documented By: GARTH Lactulose (Lactulose 20 Gm/30 Ml Solution) 20 gm PO DAILY [facility] Last Admin: 03/30/23 11:18 Dose: 20 gm Documented By: GARTH Ondansetron HCl (Ondansetron Hcl 4 Mg/2 Ml Vial) 4 mg IVPUSH Q8H PRN PRN Reason: Nausea and Vomiting Oxycodone HCl (Oxycodone Hcl Immed Release 5 Mg Tablet) 5 mg PO Q6H PRN PRN Reason: Pain, Severe (Pain Scale 7-10) Last Admin: 03/30/23 13:00 Dose: 5 mg Documented By: GARTH Sodium Chloride (0.9 % Sodium Chloride Flush 3 Ml Syringe) 3 ml IVFLUSH QSHIFT [facility] Last Admin: 03/30/23 09:24 Dose: 3 ml Documented By: GARTH Trazodone HCl (Trazodone Hcl 25 Mg Halftab) 25 mg PO BEDTIME [facility] Labs 03/27/23 06:36 03/30/23 06:34 Labs: Laboratory Results - last 24 hr 03/19/23 03/29/23 03/29/23 21:39 14:25 18:10 Anion Gap 11 L Estim Creat Clear Calc 68.9 Estimated GFR > 60 Random Glucose 118 H Calcium 8.4 CA 125 Antigen 86 H Urine Osmolality 423 Ur Random Sodium 40.0 03/30/23 06:34 Anion Gap 12 Estim Creat Clear Calc 60.9 Estimated GFR > 60 Random Glucose 99 Calcium 8.6 CA 125 Antigen Urine Osmolality Ur Random Sodium Assessment and Plan (1) Acute respiratory failure with hypoxia: Status: Acute (2) COVID-19 virus infection: Status: Acute (3) Unintentional weight loss: Status: Acute (4) Psychogenic polydipsia: Status: Acute Plan 67F PMH nonischemic cardiomyopathy s/p aicd, cereberal anuerysm s/p clipping and coiling, gout, htn, crohns, former smoker, presented with ams found to have UTI, L1 fracture, hyponatremia, during hospitalization developed cough, tachycardia, found to be covid positive Unintentional weight loss could be related to underlying malignancy Elevated CA19-9 and CA 15-[address] abd and pelvis, ?5mm cyst on tail of pancreas oncology eval, outpatient work up with MRI and PET scan Acute hypoxic respiratory failure secondary to COVID-19 Remdesivir completed, dexamethasone day 9 mucinex, incentive spirometry on room air Acute metabolic encephalopathy Due to hyponatremia and urinary tract infection resolved acute hyponatremia 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 with poor solute intake and possible SIADH Sodium keeps fluctuating Continue fluid restriction Nephrology following follow BMP urinary tract infection completed ceftriaxone Acute L1 fracture Pain control, physical therapy Stage II decubitus ulcer of the sacrum, stage I decubitus ulcer of bilateral buttocks Repositioning Crohn's disease Stable Nonischemic cardiomyopathy, hypertension Continue carvedilol, hydralazine, Imdur DVT prophylaxis with Lovenox Full code reason for continued hospitalization: pending oncology eval and rehab placement for covid positive (will be considered recovered 04/02/23) Time Spent With Patient Time: Total time managing care of this patient today ____ minutes. Quality Stroke Does the patient have a stroke diagnosis?: No VTE Prior VTE?: No VTE Risk Level:: Medical - moderate - high VTE Device Contraindication: Treatment Not Indicated VTE Drug Contraindication: N/A - Med Ordered
[2023-03-30] MEDS: hydrALAZINE HCl 25 MG TABLET 75 MG PO ×2 (15:36→19:54)
[2023-03-30] MEDS: Enoxaparin Sodium 40 MG/0.4 ML SYRINGE SUBCUT (15:36)
[2023-03-30 15:44] LABS: OBS Int Ctl Valid YES; OBS1 NEGATIVE (NEGATIVE)
--- NOTE | 2023-03-30 17:27 | P.PNNP_ITS ---
Subjective Subjective Date of Service: 03/30/23 Interval history: Na stable Physical Exam 2 Vital Signs: Vital Signs: Last Vital Signs Temp 97.5 F 03/30/23 15:31 Pulse 71 03/30/23 15:31 Resp 18 03/30/23 15:31 BP 142/75 H 03/30/23 15:31 Pulse Ox 89 L 03/30/23 15:31 O2 Del Method Room Air 03/30/23 11:22 O2 Flow Rate 2 03/30/23 08:00 BMI result Body Mass Index 19.0 Const: Other: Constitutional : Awake, interactive, not in distress Neck : Normal inspection, Supple Cardiovascular : RRR, no JVP, no lower extremity edema Respiratory : good bilateral air entry, no crackles, wheezes or rhonchi Gastrointestinal: soft, lax, Normal bowel sounds, Non tender Skin : Warm, Dry Neurological : Alert & oriented x3, No focal deficit Objective Data Labs 03/27/23 06:36 03/30/23 06:34 Labs: Laboratory Results - last 24 hr 03/29/23 03/30/23 03/30/23 18:10 06:34 Unknown Sodium 130 L Potassium 4.0 Chloride 97 Carbon Dioxide 25 Anion Gap 12 BUN 57 H Creatinine 0.68 Estim Creat Clear Calc 60.9 Estimated GFR > 60 Random Glucose 99 Calcium 8.6 Urine Osmolality 423 Ur Random Sodium 40.0 Stool Occult Blood NEGATIVE Microbiology Microbiology Results: Microbiology 03/19/23 10:38 Blood - Venous Blood Culture - Final No growth after 5 days. 03/19/23 10:38 Blood - Venous Blood Culture - Final No growth after 5 days. 03/19/23 Unknown Urine Catheterized - Straight Catheter Urine Culture - Final Escherichia coli Procedures Date of Service Date of Service: 03/30/23 Assessment & Plan Assessment and plan (1) Acute hyponatremia: Status: Acute Plan 67-year-old woman with chronic asymptomatic hyponatremia. Clinically she appears euvolemic. MULTIPLE REASONS For hyponatremia 1) Poor solute intake is for sure number 1 reason. The Uosm was low at 175 this points towards TEA AND TOAST and excess water intake 2) Maybe some SIADH but this is not the primary diagnosis 3) FOr sure some hypovolemia Brennan <20 Plan: - fluid restrict - increase protein intake with ensure shakes - ok to d/c urea and NACL - labs tomorrow Time Spent With Patient Time: Total time managing care of this patient today ____ minutes. Progress Note: Quality Stroke Does the patient have a stroke diagnosis?: No
[2023-03-30] MEDS: Simethicone 80 MG TAB.CHEW PO (18:15)
[2023-03-30] MEDS: traZODone HCL 25 MG HALFTAB PO (19:58)
[2023-03-31 03:13] VITALS: BP 172/84; PULSE 69; RESP 20; TEMP 36.2; O2SAT 96
[2023-03-31 07:35] LABS: Anion Gap 15 (12-20); Blood Urea Nitrogen 33 mg/dL (9-16); Calcium 8.4 mg/dL (8.4-10.2); Carbon Dioxide 22 mmol/L (22-29); Chloride 97 mmol/L (96-108); Creatinine Clr Calc Pharmacy 70.1; Estimated Glomerular Filt Rate > 60; Glucose Random 89 mg/dL (60-115); Potassium 4.1 mmol/L (3.3-5.1); Sodium 130 mmol/L (135-145)
[2023-03-31 08:00] VITALS: BP 181/79; PULSE 67; RESP 20; TEMP 36.5; O2SAT 96
[2023-03-31] MEDS: Acetaminophen 325 MG TABLET 975 MG PO ×3 (08:25→22:05)
[2023-03-31] MEDS: Gabapentin 100 MG CAPSULE PO ×3 (08:25→22:05)
[2023-03-31] MEDS: Folic Acid 1 MG TABLET PO (08:25)
[2023-03-31] MEDS: Isosorbide Mononitrate 60 MG TAB.ER.24H PO (08:25)
[2023-03-31] MEDS: hydrALAZINE HCl 25 MG TABLET 75 MG PO ×3 (08:25→22:05)
[2023-03-31] MEDS: 0.9 % Sodium Chloride Flush 3 ML SYRINGE IVFLUSH ×3 (08:25→22:06)
[2023-03-31] MEDS: carvediloL 25 MG TABLET PO ×2 (08:26→22:05)
[2023-03-31] MEDS: guaiFENesin DM 600/30 1 TAB TAB.ER.12H PO ×2 (08:26→22:05)
[2023-03-31 08:28] VITALS: O2SAT 94
--- NOTE | 2023-03-31 09:21 | P.PNNP_ITS ---
Subjective Subjective Date of Service: 03/31/23 Interval history: labs reviewed doing well off med management Physical Exam 2 Vital Signs: Vital Signs: Last Vital Signs Temp 97.7 F 03/31/23 08:00 Pulse 67 03/31/23 08:00 Resp 20 03/31/23 08:00 BP 181/79 H 03/31/23 08:00 Pulse Ox 94 03/31/23 08:28 O2 Del Method Nasal Cannula 03/31/23 08:28 O2 Flow Rate 1 03/31/23 08:28 BMI result Body Mass Index 19.0 Const: Other: Constitutional : Awake, interactive, not in distress Neck : Normal inspection, Supple Cardiovascular : RRR, no JVP, no lower extremity edema Respiratory : good bilateral air entry, no crackles, wheezes or rhonchi Gastrointestinal: soft, lax, Normal bowel sounds, Non tender Skin : Warm, Dry Neurological : Alert & oriented x3, No focal deficit Objective Data Labs 03/27/23 06:36 03/31/23 06:14 Labs: Laboratory Results - last 24 hr 03/30/23 03/31/23 Unknown 06:14 Sodium 130 L Potassium 4.1 Chloride 97 Carbon Dioxide 22 Anion Gap 15 BUN 33 H Creatinine 0.59 Estim Creat Clear Calc 70.1 Estimated GFR > 60 Random Glucose 89 Calcium 8.4 Stool Occult Blood NEGATIVE Microbiology Microbiology Results: Microbiology 03/19/23 10:38 Blood - Venous Blood Culture - Final No growth after 5 days. 03/19/23 10:38 Blood - Venous Blood Culture - Final No growth after 5 days. 03/19/23 Unknown Urine Catheterized - Straight Catheter Urine Culture - Final Escherichia coli Procedures Date of Service Date of Service: 03/31/23 Assessment & Plan Assessment and plan (1) Acute hyponatremia: Status: Acute Plan 67-year-old woman with chronic asymptomatic hyponatremia. Clinically she appears euvolemic. MULTIPLE REASONS For hyponatremia 1) Poor solute intake is for sure number 1 reason. The Uosm was low at 175 this points towards TEA AND TOAST and excess water intake 2) Maybe some SIADH but this is not the primary diagnosis 3) FOr sure some hypovolemia Brennan <20 Plan: - fluid restrict should be chronc. - increase protein intake with ensure shakes - ok to manage off urea - if needed a good chronic regimen would be naCl 1g BID with lasix 20mg BID Time Spent With Patient Time: Total time managing care of this patient today ____ minutes. Progress Note: Quality Stroke Does the patient have a stroke diagnosis?: No
[2023-03-31] MEDS: oxyCODONE HCl Immed Release 5 MG TABLET PO ×2 (10:16→17:17)
--- NOTE | 2023-03-31 11:37 | P.PNIM_ITS ---
Subjective Subjective Date of Service: 03/31/23 Interval History: Seen and evaluated feels better, slept well complaining of back pain, not encouraged to do any physical therapy yet Sodium up to 130 Tolerating diet well Review of Systems Review of Systems: Yes all other systems are reviewed and are negative Physical Exam 2 Vital Signs: Vital Signs: Last Vital Signs Temp 97.7 F 03/31/23 08:00 Pulse 67 03/31/23 08:00 Resp 20 03/31/23 08:00 BP 181/79 H 03/31/23 08:00 Pulse Ox 94 03/31/23 08:28 O2 Del Method Nasal Cannula 03/31/23 08:28 O2 Flow Rate 1 03/31/23 08:28 BMI result Body Mass Index 19.0 Const: Other: Constitutional : Awake, interactive, not in distress Neck : Normal inspection, Supple Cardiovascular : RRR, no JVP, no lower extremity edema Respiratory : good bilateral air entry, no crackles, wheezes or rhonchi Gastrointestinal: soft, lax, Normal bowel sounds, Non tender Skin : Warm, Dry Neurological : Alert & oriented x3, No focal deficit Objective Data Active Medications Acetaminophen (Acetaminophen 325 Mg Tablet) 975 mg PO TID [facility] Last Admin: 03/31/23 08:25 Dose: 975 mg Documented By: YANIRA Carvedilol (Carvedilol 25 Mg Tablet) 25 mg PO BID [facility]; Protocol Last Admin: 03/31/23 08:26 Dose: 25 mg Documented By: YANIRA Docusate Sodium (Docusate Sodium 100 Mg Capsule) 100 mg PO DAILY PRN PRN Reason: Constipation Last Admin: 03/30/23 09:23 Dose: 100 mg Documented By: GARTH Enoxaparin Sodium (Enoxaparin Sodium 40 Mg/0.4 Ml Syringe) 40 mg SUBCUT Q24H [facility] Last Admin: 03/30/23 15:36 Dose: 40 mg Documented By: GARTH Folic Acid (Folic Acid 1 Mg Tablet) 1 mg PO DAILY [facility] Last Admin: 03/31/23 08:25 Dose: 1 mg Documented By: YANIRA Gabapentin (Gabapentin 100 Mg Capsule) 100 mg PO TID [facility] Last Admin: 03/31/23 08:25 Dose: 100 mg Documented By: YANIRA Guaifenesin/Dextromethorphan (Guaifenesin Dm 600/30 1 Tab Tab.Er.12h) 1 tab PO BID [facility] Last Admin: 03/31/23 08:26 Dose: 1 tab Documented By: YANIRA Hydralazine HCl (Hydralazine Hcl 25 Mg Tablet) 75 mg PO TID [facility]; Protocol Last Admin: 03/31/23 08:25 Dose: 75 mg Documented By: YANIRA Isosorbide Mononitrate (Isosorbide Mononitrate 60 Mg Tab.Er.24h) 60 mg PO DAILY [facility]; Protocol Last Admin: 03/31/23 08:25 Dose: 60 mg Documented By: YANIRA Lactulose (Lactulose 20 Gm/30 Ml Solution) 20 gm PO DAILY [facility] Last Admin: 03/31/23 09:06 Dose: Not Given Documented By: YANIRA Non-Admin Reason: Patient Refused Comments: patient had bowel movement 03/30/2023. md lynn Ondansetron HCl (Ondansetron Hcl 4 Mg/2 Ml Vial) 4 mg IVPUSH Q8H PRN PRN Reason: Nausea and Vomiting Sodium Chloride (0.9 % Sodium Chloride Flush 3 Ml Syringe) 3 ml IVFLUSH QSHIFT [facility] Last Admin: 03/31/23 08:25 Dose: 3 ml Documented By: YANIRA Trazodone HCl (Trazodone Hcl 25 Mg Halftab) 25 mg PO BEDTIME [facility] Last Admin: 03/30/23 19:58 Dose: 25 mg Documented By: LAMAR Labs 03/27/23 06:36 03/31/23 06:14 Labs: Laboratory Results - last 24 hr 03/30/23 03/31/23 Unknown 06:14 Anion Gap 15 Estim Creat Clear Calc 70.1 Estimated GFR > 60 Random Glucose 89 Calcium 8.4 Stool Occult Blood NEGATIVE Assessment and Plan (1) Acute respiratory failure with hypoxia: Status: Acute (2) COVID-19 virus infection: Status: Acute (3) Unintentional weight loss: Status: Acute (4) MDD (major depressive disorder), single episode with melancholic features: Status: Acute (5) Psychogenic polydipsia: Status: Acute (6) Abnormal tumor markers: Status: Acute Plan 67F PMH nonischemic cardiomyopathy s/p aicd, cereberal anuerysm s/p clipping and coiling, gout, htn, crohns, former smoker, presented with ams found to have UTI, L1 fracture, hyponatremia, during hospitalization developed cough, tachycardia, found to be covid positive Unintentional weight loss with elevated tumer markers could be related to underlying malignancy Elevated CA19-9 and CA 15-[address] abd and pelvis, ?5mm cyst on tail of pancreas oncology eval, outpatient work up with MRI and PET scan Acute hypoxic respiratory failure secondary to COVID-19 Remdesivir completed, dexamethasone day 10, to dc mucinex, incentive spirometry on room air Acute metabolic encephalopathy Due to hyponatremia and urinary tract infection resolved acute hyponatremia improved to 130 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 with poor solute intake and possible SIADH Sodium keeps fluctuating Continue fluid restriction Nephrology following follow BMP urinary tract infection completed ceftriaxone Acute L1 fracture Pain control, physical therapy Stage II decubitus ulcer of the sacrum, stage I decubitus ulcer of bilateral buttocks Repositioning Crohn's disease Stable Nonischemic cardiomyopathy, hypertension Continue carvedilol, hydralazine, Imdur DVT prophylaxis with Lovenox Full code reason for continued hospitalization: pending oncology eval and rehab placement for covid positive (will be considered recovered 04/02/23) Time Spent With Patient Time: Total time managing care of this patient today ____ minutes. Quality Stroke Does the patient have a stroke diagnosis?: No VTE Prior VTE?: No VTE Risk Level:: Medical - moderate - high VTE Device Contraindication: Treatment Not Indicated VTE Drug Contraindication: N/A - Med Ordered
[2023-03-31 12:32] VITALS: O2SAT 94
[2023-03-31 16:00] VITALS: BP 146/71; PULSE 71; RESP 18; TEMP 36.3; O2SAT 92
[2023-03-31] MEDS: Enoxaparin Sodium 40 MG/0.4 ML SYRINGE SUBCUT (17:18)
[2023-03-31] MEDS: Sodium Chloride 0.65 % Nasal 44 ML SPRBTL 1 SPRAY NOSTRIL-B ×2 (17:18→22:10)
[2023-03-31 23:58] VITALS: BP 113/62; PULSE 71; RESP 18; TEMP 36.6; O2SAT 94
[2023-04-01] MEDS: oxyCODONE HCl Immed Release 5 MG TABLET PO ×4 (03:34→21:42)
[2023-04-01 08:00] VITALS: PULSE 75; RESP 20; TEMP 37.1; O2SAT 91
[2023-04-01 09:09] VITALS: BP 182/91
[2023-04-01] MEDS: guaiFENesin DM 600/30 1 TAB TAB.ER.12H PO ×2 (09:10→21:44)
[2023-04-01] MEDS: Gabapentin 100 MG CAPSULE PO ×3 (09:10→21:44)
[2023-04-01] MEDS: hydrALAZINE HCl 25 MG TABLET 75 MG PO ×3 (09:10→21:42)
[2023-04-01] MEDS: Folic Acid 1 MG TABLET PO (09:10)
[2023-04-01] MEDS: Isosorbide Mononitrate 60 MG TAB.ER.24H PO (09:10)
[2023-04-01] MEDS: Acetaminophen 325 MG TABLET 975 MG PO ×3 (09:10→21:42)
[2023-04-01] MEDS: carvediloL 25 MG TABLET PO ×2 (09:11→21:43)
[2023-04-01] MEDS: 0.9 % Sodium Chloride Flush 3 ML SYRINGE IVFLUSH ×3 (09:11→21:44)
[2023-04-01] MEDS: Sodium Chloride 0.65 % Nasal 44 ML SPRBTL 1 SPRAY NOSTRIL-B ×2 (09:13→21:49)
--- NOTE | 2023-04-01 13:23 | HO.PM.IMPN ---
Subjective Subjective Date of Service: 04/01/23 Interval History: Seen and evaluated feels better, slept well complaining of back pain, not encouraged to do any physical therapy yet Sodium up to 130 Tolerating diet well Physical Exam Vital Signs: Vital Signs: Last Vital Signs Temp 98.7 F 04/01/23 08:00 Pulse 75 04/01/23 08:00 Resp 20 04/01/23 08:00 BP 182/91 H 04/01/23 09:09 Pulse Ox 91 L 04/01/23 08:00 O2 Del Method Room Air 04/01/23 08:00 O2 Flow Rate 1 03/31/23 08:28 BMI result Body Mass Index 19.0 Const: Other: Constitutional : Awake, interactive, not in distress Neck : Normal inspection, Supple Cardiovascular : RRR, no JVP, no lower extremity edema Respiratory : good bilateral air entry, no crackles, wheezes or rhonchi Gastrointestinal: soft, lax, Normal bowel sounds, Non tender Skin : Warm, Dry Neurological : Alert & oriented x3, No focal deficit Objective Data Active Medications Acetaminophen (Acetaminophen 325 Mg Tablet) 975 mg PO TID [facility] Last Admin: 04/01/23 09:10 Dose: 975 mg Documented By: YANIRA Carvedilol (Carvedilol 25 Mg Tablet) 25 mg PO BID [facility]; Protocol Last Admin: 04/01/23 09:11 Dose: 25 mg Documented By: YANIRA Docusate Sodium (Docusate Sodium 100 Mg Capsule) 100 mg PO DAILY PRN PRN Reason: Constipation Last Admin: 03/30/23 09:23 Dose: 100 mg Documented By: GARTH Enoxaparin Sodium (Enoxaparin Sodium 40 Mg/0.4 Ml Syringe) 40 mg SUBCUT Q24H [facility] [place] Last Admin: 03/31/23 17:18 Dose: 40 mg Documented By: YANIRA Folic Acid (Folic Acid 1 Mg Tablet) 1 mg PO DAILY [facility] Last Admin: 04/01/23 09:10 Dose: 1 mg Documented By: YANIRA Gabapentin (Gabapentin 100 Mg Capsule) 100 mg PO TID [facility] Last Admin: 04/01/23 09:10 Dose: 100 mg Documented By: YANIRA Guaifenesin/Dextromethorphan (Guaifenesin Dm 600/30 1 Tab Tab.Er.12h) 1 tab PO BID [facility] Last Admin: 04/01/23 09:10 Dose: 1 tab Documented By: YANIRA Hydralazine HCl (Hydralazine Hcl 25 Mg Tablet) 75 mg PO TID [facility]; Protocol Last Admin: 04/01/23 09:10 Dose: 75 mg Documented By: YANIRA Isosorbide Mononitrate (Isosorbide Mononitrate 60 Mg Tab.Er.24h) 60 mg PO DAILY [facility]; Protocol Last Admin: 04/01/23 09:10 Dose: 60 mg Documented By: YANIRA Lactulose (Lactulose 20 Gm/30 Ml Solution) 20 gm PO DAILY [facility] Last Admin: 04/01/23 10:12 Dose: Not Given Documented By: YANIRA Non-Admin Reason: Patient Refused Comments: patient had bowel movement 03/31/23. No constipated at present. Md notified. Ondansetron HCl (Ondansetron Hcl 4 Mg/2 Ml Vial) 4 mg IVPUSH Q8H PRN PRN Reason: Nausea and Vomiting Oxycodone HCl (Oxycodone Hcl Immed Release 5 Mg Tablet) 5 mg PO Q4H PRN PRN Reason: Pain, Severe (Pain Scale 7-10) Last Admin: 04/01/23 09:10 Dose: 5 mg Documented By: YANIRA Sodium Chloride (0.9 % Sodium Chloride Flush 3 Ml Syringe) 3 ml IVFLUSH QSHIFT [facility] Last Admin: 04/01/23 09:11 Dose: 3 ml Documented By: YANIRA Sodium Chloride (Sodium Chloride 0.65 % Nasal 44 Ml Sprbtl) 1 spray NOSTRIL-B Q1H PRN PRN Reason: dry nose Last Admin: 04/01/23 09:13 Dose: 1 spray Documented By: YANIRA Trazodone HCl (Trazodone Hcl 25 Mg Halftab) 25 mg PO BEDTIME [facility] Last Admin: 04/01/23 02:09 Dose: Not Given Documented By: LAMAR Non-Admin Reason: Patient Asleep Labs 03/27/23 06:36 03/31/23 06:14 Assessment and Plan (1) Abnormal tumor markers: Status: Acute (2) Acute respiratory failure with hypoxia: Status: Acute (3) COVID-19 virus infection: Status: Acute (4) Unintentional weight loss: Status: Acute (5) Urinary tract infection: Status: Acute (6) Acute hyponatremia: Status: Acute Plan 67F PMH nonischemic cardiomyopathy s/p aicd, cereberal anuerysm s/p clipping and coiling, gout, htn, crohns, former smoker, presented with ams found to have UTI, L1 fracture, hyponatremia, during hospitalization developed cough, tachycardia, found to be covid positive Unintentional weight loss with elevated tumer markers could be related to underlying malignancy Elevated CA19-9 and CA 15-[address] abd and pelvis, ?5mm cyst on tail of pancreas oncology eval, outpatient work up with MRI and PET scan Acute hypoxic respiratory failure secondary to COVID-19 Remdesivir completed, dexamethasone day 10, to dc mucinex, incentive spirometry on room air Acute metabolic encephalopathy Due to hyponatremia and urinary tract infection resolved acute hyponatremia improved to 130 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 with poor solute intake and possible SIADH Sodium keeps fluctuating Continue fluid restriction Nephrology following follow BMP urinary tract infection completed ceftriaxone Acute L1 fracture Pain control, physical therapy Stage II decubitus ulcer of the sacrum, stage I decubitus ulcer of bilateral buttocks Repositioning Crohn's disease Stable Nonischemic cardiomyopathy, hypertension Continue carvedilol, hydralazine, Imdur DVT prophylaxis with Lovenox Full code reason for continued hospitalization: pending oncology eval and rehab placement for covid positive (will be considered recovered 04/02/23) Time Spent With Patient Time: Total time managing care of this patient today ____ minutes. Quality Stroke Does the patient have a stroke diagnosis?: No VTE Prior VTE?: No VTE Risk Level:: Medical - moderate - high VTE Device Contraindication: Treatment Not Indicated VTE Drug Contraindication: N/A - Med Ordered
--- NOTE | 2023-04-01 13:26 | P.PNNP_ITS ---
Subjective Subjective Date of Service: 04/01/23 Interval history: Na stable on fluid restriction Physical Exam 2 Vital Signs: Vital Signs: Last Vital Signs Temp 98.7 F 04/01/23 08:00 Pulse 75 04/01/23 08:00 Resp 20 04/01/23 08:00 BP 182/91 H 04/01/23 09:09 Pulse Ox 91 L 04/01/23 08:00 O2 Del Method Room Air 04/01/23 08:00 O2 Flow Rate 1 03/31/23 08:28 BMI result Body Mass Index 19.0 Const: Other: Constitutional : Awake, interactive, not in distress Neck : Normal inspection, Supple Cardiovascular : RRR, no JVP, no lower extremity edema Respiratory : good bilateral air entry, no crackles, wheezes or rhonchi Gastrointestinal: soft, lax, Normal bowel sounds, Non tender Skin : Warm, Dry Neurological : Alert & oriented x3, No focal deficit Objective Data Labs 03/27/23 06:36 03/31/23 06:14 Microbiology Microbiology Results: Microbiology 03/19/23 10:38 Blood - Venous Blood Culture - Final No growth after 5 days. 03/19/23 10:38 Blood - Venous Blood Culture - Final No growth after 5 days. 03/19/23 Unknown Urine Catheterized - Straight Catheter Urine Culture - Final Escherichia coli Procedures Date of Service Date of Service: 04/01/23 Assessment & Plan Assessment and plan (1) Acute hyponatremia: Status: Acute Plan 67-year-old woman with chronic asymptomatic hyponatremia. Clinically she appears euvolemic. MULTIPLE REASONS For hyponatremia 1) Poor solute intake is for sure number 1 reason. The Uosm was low at 175 this points towards TEA AND TOAST and excess water intake 2) Maybe some SIADH but this is not the primary diagnosis 3) FOr sure some hypovolemia Brennan <20 Plan: - fluid restrict should be chronc. - increase protein intake with ensure shakes - ok to manage off urea - if needed a good chronic regimen would be naCl 1g BID with lasix 20mg BID Time Spent With Patient Time: Total time managing care of this patient today ____ minutes. Progress Note: Quality Stroke Does the patient have a stroke diagnosis?: No
[2023-04-01 15:39] VITALS: BP 119/56; PULSE 78; RESP 20; TEMP 36.6; O2SAT 92
[2023-04-01] MEDS: Enoxaparin Sodium 40 MG/0.4 ML SYRINGE SUBCUT (17:37)
[2023-04-01] MEDS: traZODone HCL 25 MG HALFTAB PO (21:44)
[2023-04-02] VITALS: BP 151/94; PULSE 82; RESP 15; TEMP 37.2; O2SAT 91
[2023-04-02] MEDS: oxyCODONE HCl Immed Release 5 MG TABLET PO ×4 (03:36→22:39)
[2023-04-02 07:32] LABS: Anion Gap 15 (12-20); Blood Urea Nitrogen 14 mg/dL (9-16); Calcium 8.2 mg/dL (8.4-10.2); Carbon Dioxide 19 mmol/L (22-29); Chloride 94 mmol/L (96-108); Creatinine Clr Calc Pharmacy 68.9; Estimated Glomerular Filt Rate > 60; Glucose Random 88 mg/dL (60-115); Potassium 3.7 mmol/L (3.3-5.1); Sodium 124 mmol/L (135-145)
[2023-04-02 08:00] VITALS: BP 149/70; PULSE 79; RESP 17; TEMP 37.1; O2SAT 93
[2023-04-02] MEDS: hydrALAZINE HCl 25 MG TABLET 75 MG PO ×3 (08:41→21:11)
[2023-04-02] MEDS: Acetaminophen 325 MG TABLET 975 MG PO ×3 (08:41→21:11)
[2023-04-02] MEDS: Urea 15 GM POWDER 30 GM PO (08:42)
[2023-04-02] MEDS: Gabapentin 100 MG CAPSULE PO ×3 (08:42→21:11)
[2023-04-02] MEDS: Sodium Chloride Tab 1 GM TABLET PO ×2 (08:42→21:11)
[2023-04-02] MEDS: 0.9 % Sodium Chloride Flush 3 ML SYRINGE IVFLUSH ×3 (08:42→22:40)
[2023-04-02] MEDS: guaiFENesin DM 600/30 1 TAB TAB.ER.12H PO ×2 (08:42→21:11)
[2023-04-02] MEDS: Folic Acid 1 MG TABLET PO (08:42)
[2023-04-02] MEDS: carvediloL 25 MG TABLET PO ×2 (08:42→21:11)
[2023-04-02] MEDS: Isosorbide Mononitrate 60 MG TAB.ER.24H PO (08:42)
--- NOTE | 2023-04-02 13:51 | MHC.CM.PN ---
Per rounds patient will be ready for discharge tomorrow due to low sodium
[2023-04-02 14:16] LABS: Anion Gap 12 (12-20); Blood Urea Nitrogen 45 mg/dL (9-16); Carbon Dioxide 22 mmol/L (22-29); Chloride 94 mmol/L (96-108); Creatinine Clr Calc Pharmacy 67.8; Estimated Glomerular Filt Rate > 60; Glucose Random 116 mg/dL (60-115); Potassium 3.3 mmol/L (3.3-5.1); Sodium 125 mmol/L (135-145)
--- NOTE | 2023-04-02 14:24 | MHC.CLN ---
F/U PO INTAKE CONTINUES TO BE VARIABLE DIET RX: REGULAR, 1000 ML FLUID RESTRICTION-APPROPRIATE PT RECEIVING ENSURE MAX BID PROVIDES 300 KCALS, 60 G PROTEIN, 600 ML FREE WATER TO PROMOTE WOUND HEALING CONTINUE TO MONITOR PO INTAKE AND ENCOURAGE SUPPLEMENT
--- NOTE | 2023-04-02 15:40 | P.PNIM_ITS ---
Subjective Subjective Date of Service: 04/02/23 Interval History: Seen and evaluated feels weaker Na dropped to 124 this morning Drinking more fluids , Tolerating diet well Review of Systems Review of Systems: Yes all other systems are reviewed and are negative Physical Exam 2 Vital Signs: Vital Signs: Last Vital Signs Temp 98.7 F 04/02/23 08:00 Pulse 79 04/02/23 08:00 Resp 17 04/02/23 08:00 BP 149/70 H 04/02/23 08:00 Pulse Ox 93 04/02/23 08:00 O2 Del Method Room Air 04/02/23 08:00 O2 Flow Rate 1 03/31/23 08:28 BMI result Body Mass Index 19.0 Const: Other: Constitutional : Awake, interactive, not in distress Neck : Normal inspection, Supple Cardiovascular : RRR, no JVP, no lower extremity edema Respiratory : good bilateral air entry, no crackles, wheezes or rhonchi Gastrointestinal: soft, lax, Normal bowel sounds, Non tender Skin : Warm, Dry Neurological : Alert & oriented x3, No focal deficit Objective Data Active Medications Acetaminophen (Acetaminophen 325 Mg Tablet) 975 mg PO TID [facility] Last Admin: 04/02/23 08:41 Dose: 975 mg Documented By: GLENN Carvedilol (Carvedilol 25 Mg Tablet) 25 mg PO BID [facility]; Protocol Last Admin: 04/02/23 08:42 Dose: 25 mg Documented By: GLENN Docusate Sodium (Docusate Sodium 100 Mg Capsule) 100 mg PO DAILY PRN PRN Reason: Constipation Last Admin: 03/30/23 09:23 Dose: 100 mg Documented By: GARTH Enoxaparin Sodium (Enoxaparin Sodium 40 Mg/0.4 Ml Syringe) 40 mg SUBCUT Q24H [facility] Last Admin: 04/01/23 17:37 Dose: 40 mg Documented By: YANIRA Folic Acid (Folic Acid 1 Mg Tablet) 1 mg PO DAILY [facility] Last Admin: 04/02/23 08:42 Dose: 1 mg Documented By: GLENN Gabapentin (Gabapentin 100 Mg Capsule) 100 mg PO TID [facility] Last Admin: 04/02/23 08:42 Dose: 100 mg Documented By: GLENN Guaifenesin/Dextromethorphan (Guaifenesin Dm 600/30 1 Tab Tab.Er.12h) 1 tab PO BID [facility] Last Admin: 04/02/23 08:42 Dose: 1 tab Documented By: GLENN Hydralazine HCl (Hydralazine Hcl 25 Mg Tablet) 75 mg PO TID [facility]; Protocol Last Admin: 04/02/23 08:41 Dose: 75 mg Documented By: GLENN Isosorbide Mononitrate (Isosorbide Mononitrate 60 Mg Tab.Er.24h) 60 mg PO DAILY [facility]; Protocol Last Admin: 04/02/23 08:42 Dose: 60 mg Documented By: GLENN Lactulose (Lactulose 20 Gm/30 Ml Solution) 20 gm PO DAILY [facility] Last Admin: 04/02/23 08:43 Dose: Not Given Documented By: GLENN Non-Admin Reason: Patient Refused Ondansetron HCl (Ondansetron Hcl 4 Mg/2 Ml Vial) 4 mg IVPUSH Q8H PRN PRN Reason: Nausea and Vomiting Oxycodone HCl (Oxycodone Hcl Immed Release 5 Mg Tablet) 5 mg PO Q4H PRN PRN Reason: Pain, Severe (Pain Scale 7-10) Last Admin: 04/02/23 11:40 Dose: 5 mg Documented By: GLENN Sodium Chloride (0.9 % Sodium Chloride Flush 3 Ml Syringe) 3 ml IVFLUSH QSHIFT [facility] Last Admin: 04/02/23 08:42 Dose: 3 ml Documented By: GLENN Sodium Chloride (Sodium Chloride 0.65 % Nasal 44 Ml Sprbtl) 1 spray NOSTRIL-B Q1H PRN PRN Reason: dry nose Last Admin: 04/01/23 21:49 Dose: 1 spray Documented By: JESSENIA Sodium Chloride (Sodium Chloride Tab 1 Gm Tablet) 1 gm PO BID [facility] Last Admin: 04/02/23 08:42 Dose: 1 gm Documented By: GLENN Trazodone HCl (Trazodone Hcl 25 Mg Halftab) 25 mg PO BEDTIME [facility] Last Admin: 04/01/23 21:44 Dose: 25 mg Documented By: JESSENIA Labs 03/27/23 06:36 04/02/23 13:10 Labs: Laboratory Results - last 24 hr 04/02/23 04/02/23 06:56 13:10 Anion Gap 15 12 Estim Creat Clear Calc 68.9 67.8 Estimated GFR > 60 > 60 Random Glucose 88 116 H Calcium 8.2 L 8.0 L Assessment and Plan (1) Abnormal tumor markers: Status: Acute (2) Weakness: Status: Acute (3) Acute hyponatremia: Status: Acute Plan 67F PMH nonischemic cardiomyopathy s/p aicd, cereberal anuerysm s/p clipping and coiling, gout, htn, crohns, former smoker, presented with ams found to have UTI, L1 fracture, hyponatremia, during hospitalization developed cough, tachycardia, found to be covid positive Unintentional weight loss with elevated tumer markers could be related to underlying malignancy Elevated CA19-9 and CA 15-[address] abd and pelvis, ?5mm cyst on tail of pancreas oncology eval, outpatient work up with MRI and PET scan Acute hypoxic respiratory failure secondary to COVID-19 Remdesivir completed, dexamethasone day 10 completed mucinex, incentive spirometry on room air Acute metabolic encephalopathy Due to hyponatremia and urinary tract infection resolved acute hyponatremia 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 dropped to 124 restart PO NaCl and Urea fluid restriction Nephrology following follow BMP urinary tract infection completed ceftriaxone Acute L1 fracture Pain control, physical therapy Stage II decubitus ulcer of the sacrum, stage I decubitus ulcer of bilateral buttocks Repositioning Crohn's disease Stable Nonischemic cardiomyopathy, hypertension Continue carvedilol, hydralazine, Imdur DVT prophylaxis with Lovenox Full code reason for continued hospitalization: pending hyponatremia improvement and rehab placement for covid positive (will be considered recovered 04/02/23) Time Spent With Patient Time: Total time managing care of this patient today ____ minutes. Quality Stroke Does the patient have a stroke diagnosis?: No VTE Prior VTE?: No VTE Risk Level:: Medical - moderate - high VTE Device Contraindication: Treatment Not Indicated VTE Drug Contraindication: N/A - Med Ordered
[2023-04-02 15:59] VITALS: BP 100/60; PULSE 82; RESP 18; TEMP 36.6; O2SAT 93
[2023-04-02] MEDS: Enoxaparin Sodium 40 MG/0.4 ML SYRINGE SUBCUT (16:41)
[2023-04-02] MEDS: Urea 15 GM POWDER PO (16:53)
[2023-04-02] MEDS: Simethicone 80 MG TAB.CHEW PO (18:07)
[2023-04-02 21:10] VITALS: BP 122/58
[2023-04-02] MEDS: traZODone HCL 25 MG HALFTAB PO (21:11)
[2023-04-03] VITALS: BP 90/54; PULSE 68; RESP 20; TEMP 36.1; O2SAT 92
[2023-04-03] MEDS: oxyCODONE HCl Immed Release 5 MG TABLET PO ×2 (06:10→12:27)
[2023-04-03 07:27] VITALS: BP 179/84; PULSE 84; RESP 15; TEMP 37.6
[2023-04-03 07:45] LABS: Anion Gap 15 (12-20); Blood Urea Nitrogen 34 mg/dL (9-16); Calcium 8.4 mg/dL (8.4-10.2); Carbon Dioxide 21 mmol/L (22-29); Chloride 95 mmol/L (96-108); Creatinine Clr Calc Pharmacy 66.7; Estimated Glomerular Filt Rate > 60; Glucose Random 106 mg/dL (60-115); Sodium 128 mmol/L (135-145)
[2023-04-03] MEDS: Isosorbide Mononitrate 60 MG TAB.ER.24H PO (08:30)
[2023-04-03] MEDS: Simethicone 80 MG TAB.CHEW PO ×2 (08:30→15:36)
[2023-04-03] MEDS: Lactulose 20 GM/30 ML SOLUTION PO (08:30)
[2023-04-03] MEDS: Gabapentin 100 MG CAPSULE PO ×2 (08:30→15:29)
[2023-04-03] MEDS: guaiFENesin DM 600/30 1 TAB TAB.ER.12H PO (08:30)
[2023-04-03] MEDS: hydrALAZINE HCl 25 MG TABLET 75 MG PO ×2 (08:30→15:29)
[2023-04-03] MEDS: Acetaminophen 325 MG TABLET 975 MG PO ×2 (08:30→15:29)
[2023-04-03] MEDS: carvediloL 25 MG TABLET PO (08:32)
[2023-04-03] MEDS: Sodium Chloride Tab 1 GM TABLET PO (08:32)
[2023-04-03] MEDS: Folic Acid 1 MG TABLET PO (08:32)
[2023-04-03] MEDS: 0.9 % Sodium Chloride Flush 3 ML SYRINGE IVFLUSH (08:32)
--- NOTE | 2023-04-03 09:10 | MHC.CM.PN ---
CM CONTACTED PT VIA PHONE PT HAS NO PCP LISTED, PT REPORTS SHE HAD A PCP DR TOMPKINS WHO SWITCHED TO PAIN MANAGEMENT, PT DECLINES TO LET CM FIND HER AND SCHEDULE A NEW PCP APPT, PT ACCEPTING OF [facility] W/LIST OF CURRENT PROVIDERS. CM ALSO DISCUSSED DISPO AND NEED FOR PT TO WORK W/PT SHE HAS BEEN REFUSING, PT DOES REPORT SHE WILL NOT GO TO [facility] HER [facility], PT REPORTS SHE PREFERS [facility] AND WILL DISCUSS OTHER OPTIONS W/FAMILY, CM WILL FOLLOW UP W/PT AFTER ROUNDS.
--- NOTE | 2023-04-03 10:45 | P.PNNP_ITS ---
Subjective Subjective Date of Service: 04/03/23 Interval history: Events noted; All recent data reviewed Physical Exam 2 Vital Signs: Vital Signs: Last Vital Signs Temp 99.6 F 04/03/23 07:27 Pulse 84 04/03/23 07:27 Resp 15 04/03/23 07:27 BP 179/84 H 04/03/23 07:27 Pulse Ox 92 04/03/23 00:00 O2 Del Method Room Air 04/03/23 07:27 O2 Flow Rate 1 03/31/23 08:28 BMI result Body Mass Index 19.0 Const: General: no acute distress Eyes: EOM: EOMs intact bilaterally Neck: Neck: Yes supple Resp: Auscultation: diminished lung sounds Cardio: Rate: regular rate GI: Palpation (GI): Soft to palpation Neuro: General: moves all extremities Objective Data Labs 03/27/23 06:36 04/03/23 06:51 Labs: Laboratory Results - last 24 hr 04/02/23 04/03/23 13:10 06:51 Sodium 125 L 128 L Potassium 3.3 3.0 L Chloride 94 L 95 L Carbon Dioxide 22 21 L Anion Gap 12 15 BUN 45 H 34 H Creatinine 0.61 0.62 Estim Creat Clear Calc 67.8 66.7 Estimated GFR > 60 > 60 Random Glucose 116 H 106 Calcium 8.0 L 8.4 Microbiology Microbiology Results: Microbiology 03/19/23 10:38 Blood - Venous Blood Culture - Final No growth after 5 days. 03/19/23 10:38 Blood - Venous Blood Culture - Final No growth after 5 days. 03/19/23 Unknown Urine Catheterized - Straight Catheter Urine Culture - Final Escherichia coli Procedures Date of Service Date of Service: 04/03/23 Assessment & Plan Assessment and plan (1) Acute hyponatremia: Status: Acute Assessment and Plan: Euvolemic Hyponatremia MULTIPLE REASONS For hyponatremia 1) Poor solute intake is for sure number 1 reason. The Uosm was low at 175 this points towards TEA AND TOAST and excess water intake 2) Maybe some SIADH but this is not the primary diagnosis 3) For sure some hypovolemia Brennan <20 Fluid restriction 48 oz/ 24 hours Currently on PO NaCl; C/W rest of current management Could be D/Luis from a renal perspective Progress Note: Quality Stroke Does the patient have a stroke diagnosis?: No
[2023-04-03] MEDS: Urea 15 GM POWDER 30 GM PO (11:11)
[2023-04-03] MEDS: Potassium Chloride Packet 20 MEQ PACKET 40 MEQ PO (11:11)
[2023-04-03 11:18] VITALS: BP 179/84; PULSE 84
--- NOTE | 2023-04-03 12:02 | P.PNIM_ITS ---
Subjective Subjective Date of Service: 04/03/23 Interval History: Seen and evaluated feels better Na improved to 128 Drinking less fluids overnight , Tolerating diet well Review of Systems Review of Systems: Yes all other systems are reviewed and are negative Physical Exam 2 Vital Signs: Vital Signs: Last Vital Signs Temp 99.6 F 04/03/23 07:27 Pulse 84 04/03/23 11:18 Resp 15 04/03/23 07:27 BP 179/84 H 04/03/23 11:18 Pulse Ox 92 04/03/23 00:00 O2 Del Method Room Air 04/03/23 07:27 O2 Flow Rate 1 03/31/23 08:28 BMI result Body Mass Index 19.0 Const: Other: Constitutional : Awake, interactive, not in distress Neck : Normal inspection, Supple Cardiovascular : RRR, no JVP, no lower extremity edema Respiratory : good bilateral air entry, no crackles, wheezes or rhonchi Gastrointestinal: soft, lax, Normal bowel sounds, Non tender Skin : Warm, Dry Neurological : Alert & oriented x3, No focal deficit Objective Data Active Medications Acetaminophen (Acetaminophen 325 Mg Tablet) 975 mg PO TID [facility] Last Admin: 04/03/23 08:30 Dose: 975 mg Documented By: TAMIA Carvedilol (Carvedilol 25 Mg Tablet) 25 mg PO BID [facility]; Protocol Last Admin: 04/03/23 08:32 Dose: 25 mg Documented By: TAMIA Docusate Sodium (Docusate Sodium 100 Mg Capsule) 100 mg PO DAILY PRN PRN Reason: Constipation Last Admin: 03/30/23 09:23 Dose: 100 mg Documented By: GARTH Enoxaparin Sodium (Enoxaparin Sodium 40 Mg/0.4 Ml Syringe) 40 mg SUBCUT Q24H [facility] Last Admin: 04/02/23 16:41 Dose: 40 mg Documented By: GLENN Folic Acid (Folic Acid 1 Mg Tablet) 1 mg PO DAILY [facility] Last Admin: 04/03/23 08:32 Dose: 1 mg Documented By: TAMIA Gabapentin (Gabapentin 100 Mg Capsule) 100 mg PO TID [facility] Last Admin: 04/03/23 08:30 Dose: 100 mg Documented By: TAMIA Guaifenesin/Dextromethorphan (Guaifenesin Dm 600/30 1 Tab Tab.Er.12h) 1 tab PO BID [facility] Last Admin: 04/03/23 08:30 Dose: 1 tab Documented By: TAMIA Hydralazine HCl (Hydralazine Hcl 25 Mg Tablet) 75 mg PO TID [facility]; Protocol Last Admin: 04/03/23 08:30 Dose: 75 mg Documented By: TAMIA Isosorbide Mononitrate (Isosorbide Mononitrate 60 Mg Tab.Er.24h) 60 mg PO DAILY [facility]; Protocol Last Admin: 04/03/23 08:30 Dose: 60 mg Documented By: TAMIA Lactulose (Lactulose 20 Gm/30 Ml Solution) 20 gm PO DAILY [facility] Last Admin: 04/03/23 08:30 Dose: 20 gm Documented By: TAMIA Ondansetron HCl (Ondansetron Hcl 4 Mg/2 Ml Vial) 4 mg IVPUSH Q8H PRN PRN Reason: Nausea and Vomiting Oxycodone HCl (Oxycodone Hcl Immed Release 5 Mg Tablet) 5 mg PO Q4H PRN PRN Reason: Pain, Severe (Pain Scale 7-10) Last Admin: 04/03/23 06:10 Dose: 5 mg Documented By: SABINE Simethicone (Simethicone 80 Mg Tab.Chew) 80 mg PO Q8H PRN PRN Reason: Gas Relief Last Admin: 04/03/23 08:30 Dose: 80 mg Documented By: TAMIA Sodium Chloride (0.9 % Sodium Chloride Flush 3 Ml Syringe) 3 ml IVFLUSH QSHIFT [facility] Last Admin: 04/03/23 08:32 Dose: 3 ml Documented By: TAMIA Sodium Chloride (Sodium Chloride 0.65 % Nasal 44 Ml Sprbtl) 1 spray NOSTRIL-B Q1H PRN PRN Reason: dry nose Last Admin: 04/01/23 21:49 Dose: 1 spray Documented By: JESSENIA Sodium Chloride (Sodium Chloride Tab 1 Gm Tablet) 1 gm PO BID [facility] Last Admin: 04/03/23 08:32 Dose: 1 gm Documented By: TAMIA Trazodone HCl (Trazodone Hcl 25 Mg Halftab) 25 mg PO BEDTIME [facility] Last Admin: 04/02/23 21:11 Dose: 25 mg Documented By: SABINE Labs 03/27/23 06:36 04/03/23 06:51 Labs: Laboratory Results - last 24 hr 04/02/23 04/03/23 13:10 06:51 Anion Gap 12 15 Estim Creat Clear Calc 67.8 66.7 Estimated GFR > 60 > 60 Random Glucose 116 H 106 Calcium 8.0 L 8.4 Assessment and Plan (1) Abnormal tumor markers: Status: Acute (2) COVID-19 virus infection: Status: Acute (3) Acute hyponatremia: Status: Acute Plan 67F PMH nonischemic cardiomyopathy s/p aicd, cereberal anuerysm s/p clipping and coiling, gout, htn, crohns, former smoker, presented with ams found to have UTI, L1 fracture, hyponatremia, during hospitalization developed cough, tachycardia, found to be covid positive acute hyponatremia 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 Improved to 128 restart PO NaCl and Urea fluid restriction Nephrology input appreciated, Continue NaCl tab, ok to dc from nephrology prespective and repeat labs in 2 weeks On Urea as well follow BMP Unintentional weight loss with elevated tumer markers could be related to underlying malignancy Elevated CA19-9 and CA 15-[address] abd and pelvis, ?5mm cyst on tail of pancreas oncology eval, outpatient work up with MRI and PET scan Acute hypoxic respiratory failure secondary to COVID-19 Remdesivir completed, dexamethasone day 10 completed mucinex, incentive spirometry on room air Acute metabolic encephalopathy Due to hyponatremia and urinary tract infection resolved urinary tract infection completed ceftriaxone Acute L1 fracture Pain control, physical therapy Stage II decubitus ulcer of the sacrum, stage I decubitus ulcer of bilateral buttocks Repositioning Crohn's disease Stable Nonischemic cardiomyopathy, hypertension Continue carvedilol, hydralazine, Imdur DVT prophylaxis with Lovenox Full code reason for continued hospitalization: pending rehab placement as she refused the offered facility. Time Spent With Patient Time: Total time managing care of this patient today ____ minutes. Quality Stroke Does the patient have a stroke diagnosis?: No VTE Prior VTE?: No VTE Risk Level:: Medical - moderate - high VTE Device Contraindication: Treatment Not Indicated VTE Drug Contraindication: N/A - Med Ordered
--- NOTE | 2023-04-03 13:35 | P.DS_ITS ---
DS: Providers Provider Date of Service: 04/03/23 Date of admission: 03/19/23 16:54 Primary care physician: None Physician Consults: 03/19/23 17:17 Consult to Psychiatry Routine Consulting Provider: Psych Covering Reason for consultation: depression, anxiety, weight loss 03/19/23 17:47 Consult to Nephrology Routine Consulting Provider: John Burk Reason for consultation: hyponatremia 03/28/23 09:49 Consult to Hematology / Oncology Routine Consulting Provider: Marcy Tran Reason for consultation: weight loss, elevated ca19-9 03/29/23 08:27 Consult to Nephrology Routine Consulting Provider: Thmoas Limon Reason for consultation: hyponatremia DS: Diagnosis Discharge Diagnosis (1) Abnormal tumor markers: Status: Acute (2) COVID-19 virus infection: Status: Acute (3) Acute hyponatremia: Status: Acute (4) Acute respiratory failure with hypoxia: Status: Acute (5) Unintentional weight loss: Status: Acute (6) Urinary tract infection: Status: Acute (7) Psychogenic polydipsia: Status: Acute (8) Acute dehydration: Status: Acute (9) Weakness: Status: Acute DS: Summary Hospital Course Hospital Course: from initial hpi: 67-year-old female with history of nonischemic cardiomyopathy s/p ICD placement, history of cerebral aneurysm s/p clipping coiling, gout, hypertension, former smoker with 40 pack year history, and Crohn's disease presented to the hospital earlier today with her son with whom she lives for evaluation of generalized weakness ongoing for about 1 month. She states the weakness has been progressive and she has been unable to get out of bed without significant difficulty and requires furniture surfing while ambulating which is not her baseline. Yesterday she did have a fall onto her buttock and denies any head strike or loss of consciousness. Since then has had 10/10 pain in the sacrum/coccyx region. She tells me that over the last week, she has also developed urge incontinence, dysuria, and suprapubic pressure. She tells me that because she has been unable to get out of bed much, has developed pressure ulcer on the sacrum. She also tells me that since the beginning of the year, has had a 30 lb unintentional weight loss. She states she has little appetite but has been drinking a lot of fluids. Drinks about 8, 16 oz bottles of water on a daily basis. She denies any fevers, chills, sore throat, headache, abdominal pain, nausea, vomiting, cough, shortness of breath, chest pain, lig htheadedness. She does report occasional diarrhea related to her Crohn's disease but this is rare. Denies any bright red blood per rectum or melena. Patient is alert and oriented x4 but does appear somewhat confused when telling story or giving history with small details. Her son reports this is not her baseline. He does report that she has been endorsing depression anxiety. Upon questioning further on this, the patient does report anxiety about her health and has been depressed since COVID stating she is typically a happy person. She has not been following with any primary care provider. She reports she is up to date with routine cancer screenings. In the ED, vital stable. No leukocytosis. Mild normocytic anemia with H/H 11.5/33.5%. Renal function normal. Sodium 124, Cl 95, lytes otherwise normal. Serum osm 257, urine osm 192. UA with 3+ luekocytes, positive nitrites, 2+ blooid, positive urinary sediment, 4+ bacteria. Negative for COVID-19. Head CT negative for acute intracranial abnormality, but does show left frontal sinus opacification and small air-fluid level in the right sphenoid sinus. CXR negative for any acute cardiopulmonary abnormality but does show interstitial lung disease. hospital course: Patient was admitted for acute metabolic encephalopathy due to hyponatremia and urinary tract infection. 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 She was put on fluid restriction and sodium improved to normal at an acceptable rate. She should continue fluid restriction of about 1200 cc per day and continue with salt tablets, to repeat blood work next week and to follow with nephrology as needed Developed Hypoxia, tested positive for Covid. Remdesivir completed, dexamethasone day 10 completed and weaned down to room air. For UTI she was treated with ceftriaxone. Her mentation is back to baseline. For acute L1 fracture she was seen by Physical therapy who recommended short- term rehab at [facility]. Patient is able to ambulate with walker with manageable pain. For unintentional weight loss tumor markers were drawn which are pending. Patient should follow up with dr Boudreaux for cancer screening. She did have a noncontrast CT chest which did not reveal any suspicious mass, but did reveal chronic interstitial lung disease. Patient is asymptomatic. For nonischemic cardiomyopathy and hypertension she was continued on carvedilol, hydralazine, Imdur. Patient appears euvolemic. stage II decubitus ulcer of the sacrum and stage I decubitus also the bilateral buttocks she received repositioning. For Crohn's disease she will follow up with GI. Patient is feeling better will be discharged to [facility]. Physical therapy at SNF Tylenol and Oxycodone for pain management Gabapentin for bedtime Follow up with PCP\Dr Boudreaux for weight loss work up and elevated ca19-9 Continue Salt tablets, repeat blood work in 1-2 weeks Patient will likely need less than 30 days in SNF. Time Spent with Patient Time attestation: Total time managing care of this patient today ____ minutes. Discharge coordination time: Greater than 30 minutes Quality: Safe Use of Opioids Does Pt have an Active Cancer Diagnosis on the Problem List?: No Quality: Stroke Does the patient have a stroke diagnosis?: No Physical Exam Vital Signs: Vital Signs: Last Vital Signs Temp 99.6 F 04/03/23 07:27 Pulse 84 04/03/23 11:18 Resp 15 04/03/23 07:27 BP 179/84 H 04/03/23 11:18 Pulse Ox 92 04/03/23 00:00 O2 Del Method Room Air 04/03/23 07:27 O2 Flow Rate 1 03/31/23 08:28 BMI result Body Mass Index 19.0 Const: Other: Constitutional : Awake, interactive, not in distress Neck : Normal inspection, Supple Cardiovascular : RRR, no JVP, no lower extremity edema Respiratory : good bilateral air entry, no crackles, wheezes or rhonchi Gastrointestinal: soft, lax, Normal bowel sounds, Non tender Skin : Warm, Dry, Stage II decubitus ulcer of the sacrum, stage I decubitus ulcer of bilateral buttocks Neurological : Alert & oriented x3, No focal deficit DS: Data Data Completed and Pending Labs on day of discharge: Laboratory Results - last 24 hr 04/02/23 04/03/23 13:10 06:51 Sodium 125 L 128 L Potassium 3.3 3.0 L Chloride 94 L 95 L Carbon Dioxide 22 21 L Anion Gap 12 15 BUN 45 H 34 H Creatinine 0.61 0.62 Estim Creat Clear Calc 67.8 66.7 Estimated GFR > 60 > 60 Random Glucose 116 H 106 Calcium 8.0 L 8.4 Imaging Chest x-ray: Radiologist's impression: ITS Impressions Head CT 03/19/23 11:21 IMPRESSION: No acute intracranial pathology. Left frontal sinus opacification. Small air-fluid level in the right sphenoid sinus. Chest X-Ray 03/19/23 11:22 IMPRESSION: Stable appearance of interstitial lung disease. No acute abnormality. Lumbar Spine X-Ray 03/19/23 17:03 IMPRESSION: 1. New compression fracture of L1. MRI could be useful to assess for edema if an acute fracture is suspected. 2. Grade 1 anterolisthesis of L5. 3. Degenerative changes throughout the lumbosacral spine. Sacrum and Coccyx X-Ray 03/19/23 17:03 IMPRESSION: 1. New compression fracture of L1. MRI could be useful to assess for edema if an acute fracture is suspected. 2. Grade 1 anterolisthesis of L5. 3. Degenerative changes throughout the lumbosacral spine. Chest CT 03/20/23 10:59 IMPRESSION: Severe interstitial lung disease with honeycombing. Enlarged heart. Severe L1 vertebral body compression fracture. Gallstones. Fleischner guidelines were followed. Abdomen/Pelvis CT 03/27/23 14:46 IMPRESSION: 5 mm low-attenuation lesion in the tail the pancreas. This may represent a cyst. Follow-up MR with MRCP recommended. Mild fatty infiltration of the liver. Probable small liver cyst. Small gallstones. Severe constipation/obstipation and fecal impaction. Wall thickening of the rectosigmoid questionable for mild stercoral colitis related to chronic constipation. Severe L1 vertebral body compression fracture. This does not appear acute but is new in the interval from 2019 CT. Fleischner guidelines were followed. Discharge Plan Discharge Anticipated Discharge Date/Time: 03/21/23 10:06 Patient Disposition: Xfer SNF Discharge Diagnosis: l1 fracture, hyponatremia, uti, weight loss, ILD, elevated ca19-9 Referrals: [facility] [Other] - 1 Day (SHORT TERM REHAB) Cindy Velázquez FNP [Nurse Practitioner] - 05/04/23 10:00 am (New patient appointment scheduled. Call office if you need to reschedule appointment.) Discharge Medications: New acetaminophen 325 mg Tablet 650 mg PO TID Qty: 90 0RF oxycodone 5 mg Tablet 5 mg PO Q4H PRN (Reason: Pain, Severe (Pain Scale 7-10)) Qty: 24 0RF Rx Instructions: Partial Fill upon patient request. sodium chloride 1,000 mg Tablet,Soluble 1,000 mg PO BID Qty: 60 0RF gabapentin 100 mg Capsule 200 mg PO BEDTIME Qty: 60 0RF Mucus DM 30-600 mg Tablet Extended Release 12 Hr 1 tab PO BID Qty: 10 0RF polyethylene glycol 3350 [Miralax] 17 gram/dose powder 17 g PO DAILY 30 Days Qty: 510 0RF Continued isosorbide mononitrate 30 mg tablet extended release 24 hr 30 mg PO DAILY Qty: 90 3RF carvedilol 25 mg tablet 25 mg PO BID Qty: 90 3RF hydralazine 25 mg tablet 25 mg PO TID Qty: 270 3RF folic acid 1 mg tablet 1 mg PO DAILY Discharge Orders: Discharge Order (Routine); Ordered 04/03/23 Ordered By: Sherita Sanders Diet: Advance to usual diet Activity on Discharge: As tolerated Stand Alone Forms: Patient Portal Discharge page Care Plan Goals: recovery Health Concerns: l fracture, weight loss, uti, ild Plan of Treatment: Physical therapy at [facility] Tylenol and Oxycodone for pain management Gabapentin for bedtime Follow up with PCP\Dr Boudreaux for weight loss work up and elevated ca19-9 Continue Salt tablets, repeat blood work in 1-2 weeks Assessment: see above Discharge Date/Time: 04/03/23 18:05
--- NOTE | 2023-04-03 14:42 | MHC.CM.PN ---
IMM 04/03/23 DELIVERED TO BEDSIDE, PT MEDICALLY CLEARED FOR D/C AND AGREEABLE TO 4PM TRANSFER TO [facility] FOR TRANSPORT. 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
[2023-04-08 18:14] LABS: Cortisol, Free 0.09 mcg/dL
--- NOTE | 2023-04-14 06:10 | PC.NURSE ---
Late entry for medication administered on March 31, 2023. Pt. received Oxycodone 5mg by mouth per pt. request at 21:55 on 03/31/2023 for 8/10 back pain with decrease to a 2/10 back pain.
== END 2023-04-03 18:05 | disposition skilled nursing facility (03) | DRG 689 ==
LOC: HO.ED 14:24 → HO.EDOVER 17:15 → HO.S3 17:25 → HO.IMC 03-22 10:28
PROVIDERS: Internal Medicine; Social Worker; Admitting Provider Physician Assistant; Emergency Provider Student in an Organized Health Care Education/Training Program; Visit Provider Student in an Organized Health Care Education/Training Program
DX: N39.0 Urinary tract infection, site not specified (principal); G93.41 Metabolic encephalopathy; U07.1 COVID-19; J96.01 Acute respiratory failure with hypoxia; S22.019A Unspecified fracture of first thoracic vertebra, initial encounter for closed fracture; I42.8 Other cardiomyopathies; Z68.1 Body mass index [BMI] 19.9 or less, adult; K50.90 Crohn's disease, unspecified, without complications; K86.2 Cyst of pancreas; E22.2 Syndrome of inappropriate secretion of antidiuretic hormone; R63.4 Abnormal weight loss; F32.A Depression, unspecified; F41.9 Anxiety disorder, unspecified; E86.1 Hypovolemia; L89.321 Pressure ulcer of left buttock, stage 1; L89.311 Pressure ulcer of right buttock, stage 1; L89.152 Pressure ulcer of sacral region, stage 2; W19.XXXA Unspecified fall, initial encounter; E86.0 Dehydration; Z95.810 Presence of automatic (implantable) cardiac defibrillator; Z87.891 Personal history of nicotine dependence; Z79.899 Other long term (current) drug therapy
CPT/HCPCS: 36415; 70450; 71046; 71250; 72100; 72220; 74177; 80048; 80053; 80076; 81001; 81003; 82105; 82272; 82378; 82530; 82607; 83036; 83605; 83615; 83690; 83735; 83930; 83935; 84295; 84300; 84443; 84702; 85025; 85027; 86300; 86301; 86304; 86803; 87040; 87086; 87088; 87186; 87635; 93005; 97162; 97530; 99285; J0248; J0696; J1100; J1650; J1885; J2270; Q9967

== ENCOUNTER → 2023-03-19 16:54 | Outpatient (BNV) | payer MEDICARE, BC, SELFPAY | PROVIDERS: Admitting Provider Physician Assistant; Emergency Provider Student in an Organized Health Care Education/Training Program; Visit Provider Physician Assistant | DX: R97.8 Other abnormal tumor markers (principal); U07.1 COVID-19; E87.1 Hypo-osmolality and hyponatremia; J96.01 Acute respiratory failure with hypoxia; R63.4 Abnormal weight loss; N39.0 Urinary tract infection, site not specified; R63.1 Polydipsia; F54 Psychological and behavioral factors associated with disorders or diseases classified elsewhere; E86.0 Dehydration; R53.1 Weakness | CPT/HCPCS: 99223; 99232; 99233; 99239; 99499 ==

== ENCOUNTER → 2023-03-19 16:54 | Outpatient (BNV) | payer MEDICARE, BC, SELFPAY | PROVIDERS: Admitting Provider Physician Assistant; Emergency Provider Student in an Organized Health Care Education/Training Program; Visit Provider Internal Medicine Medical Oncology | DX: R63.4 Abnormal weight loss (principal); F32.9 Major depressive disorder, single episode, unspecified; K86.89 Other specified diseases of pancreas | CPT/HCPCS: 99222 ==

== ENCOUNTER → 2023-03-19 16:54 | Outpatient (BNV) | payer MEDICARE, BC, SELFPAY | PROVIDERS: Admitting Provider Physician Assistant; Emergency Provider Student in an Organized Health Care Education/Training Program; Visit Provider Social Worker | DX: F32.1 Major depressive disorder, single episode, moderate (principal) | CPT/HCPCS: 99232 ==